=== PATIENT | female | born 1970 ===

== ENCOUNTER 2016-09-12 21:41 | Inpatient (IN) | payer MEDICAID, OTHER ==
[2016-09-12] MEDS ORDERED: Sodium Chloride 0.9% 1,000 ML IV ONE ×2 (22:03→23:08)
--- NOTE | 2016-09-12 22:11 | C.PDOC ---
History Of Present Illness 46 y/o female with PMHx of gastritis presents to ED with c/o epigastric abdominal pain associated with vomiting and inability to tolerate PO. Patient reports feeling chills but denies any fevers. Patient notes she has been on medications for DM, HTN and gastritis in the past but has not been on any recently due to insurance issues. Patient describes pain as burning, which worsens when trying to eat, which causes her to vomit. Otherwise, denies fever, diarrhea, urinary symptoms, or other complaints. Time Seen by Provider: 09/12/16 22:00 Chief Complaint (Nursing): Abdominal Pain History Per: Patient History/Exam Limitations: no limitations Onset/Duration Of Symptoms: Days Current Symptoms Are (Timing): Still Present Location Of Pain/Discomfort: Epigastric Quality Of Discomfort: Burning, "Pain" Associated Symptoms: Chills, Vomiting. denies: Fever, Diarrhea, Back Pain, Urinary Symptoms Past Medical History Reviewed: Historical Data, Nursing Documentation, Vital Signs Vital Signs: Last Vital Signs Temp 99.3 F 09/12/16 21:43 Pulse 144 H 09/12/16 21:43 Resp 20 09/12/16 21:43 BP 139/83 09/12/16 21:43 Pulse Ox 96 09/12/16 23:12 - Medical History PMH: Anxiety, Gastritis, HTN, Hypercholesterolemia - [facility] GROUP PSYCHOTHERAPY (05/26/15) MEDICATION MANAGEMENT (05/26/15) Family History: States: Unknown Family Hx - Social History Hx Alcohol Use: No Hx Substance Use: Yes - Immunization History Hx Tetanus Toxoid Vaccination: No Hx Influenza Vaccination: No Hx Pneumococcal Vaccination: No Review Of Systems Except As Marked, All Systems Reviewed And Found Negative. Constitutional: Positive for: Chills. Negative for: Fever Cardiovascular: Negative for: Chest Pain Respiratory: Negative for: Cough, Wheezing Gastrointestinal: Positive for: Vomiting, Abdominal Pain. Negative for: Diarrhea Musculoskeletal: Negative for: Back Pain Skin: Negative for: Rash Physical Exam - Physical Exam Appears: Non-toxic, No Acute Distress Skin: Warm, Dry Head: Atraumatic, Normacephalic Oral Mucosa: Dry Chest: Symmetrical Cardiovascular: Rhythm Regular (tachy) Respiratory: Normal Breath Sounds, No Rales, No Rhonchi, No Wheezing Gastrointestinal/Abdominal: Bowel Sounds (quiet, but present), Soft, Tenderness (mild, epigastrium), No Guarding, No Rebound Back: Normal Inspection Extremity: Normal ROM, Capillary Refill (< 2 sec. ) Neurological/Psych: Oriented x3, Normal Speech, Normal Cognition ED Course And Treatment - Laboratory Results Result Diagrams: 09/12/16 22:45 09/12/16 22:55 Lab Interpretation: Abnormal (Blood sugar 349, Normal WBC but 19% bands, CMP unremarkable) O2 Sat by Pulse Oximetry: 96 (RA) Pulse Ox Interpretation: Normal Progress Note: Treated with Pepcid, Zofran, Protonix, and IVFs. Labs ordered and reviewed. Patient feels better after 1 liter of saline. Insulin and additional fluids ordered. Reevaluation Time: 00:46 Reassessment Condition: Unchanged (Patient still nauseated and c/o abdominal pain. GI cocktail ordered.) Disposition - Disposition Disposition Time: 00:49 Condition: FAIR - Clinical Impression Clinical Impression: Abdominal pain, Nausea, Vomiting - Scribe Statement The provider has reviewed the documentation as recorded by the Laureibcaitlin Vasquez Provider Scribe Attestation: All medical record entries made by the Scribe were at my direction and personally dictated by me. I have reviewed the chart and agree that the record accurately reflects my personal performance of the history, physical exam, medical decision making, and the department course for this patient. I have also personally directed, reviewed, and agree with the discharge instructions and disposition. Physician Patient Turnover Patient Signed Over To: Hilario Goyal Handoff Comments: Pending further treatment for gastritis and hydration
[2016-09-12 22:40] LABS: BASO % 0.1 % (0.0-2.0); LYMPH # 0.6 K/uL (1.0-4.3); MEAN CELL VOLUME 85.2 fL (81.0-99.0); MEAN CORPUSCULAR HEMOGLOBIN 28.8 pg (27.0-31.0); MEAN CORPUSCULAR HGB CONC 33.8 g/dL (33.0-37.0); MEAN PLATELET VOLUME 8.3 fL (7.2-11.7); MONO # 0.8 K/uL (0.0-0.8); MONO % 8.7 % (0.0-10.0); PLATELET COUNT 259 K/uL (130-400); RED CELL DISTRIBUTION WIDTH 12.6 % (11.5-14.5); WHITE BLOOD COUNT 9.5 K/uL (4.8-10.8)
[2016-09-12 22:44] LABS: CHLORIDE 95 mmol/L (98-107)
[2016-09-12 22:45] LABS: POTASSIUM 3.8 mmol/L (3.6-5.2); SODIUM 133 mmol/L (132-148)
[2016-09-12 22:47] LABS: GFR AFRICAN-AMERICAN > 60
[2016-09-12 22:48] LABS: ALB/GLOB RATIO 1.1 (1.0-2.1); ALKALINE PHOSPHATASE 88 U/L (38-126); ALT/SGPT 32 U/L (9-52); AST/SGOT 30 U/L (14-36); BILIRUBIN,TOTAL 0.7 mg/dL (0.2-1.3); BLOOD UREA NITROGEN 11 mg/dL (7-17); CALCIUM 9.5 mg/dl (8.6-10.4); CARBON DIOXIDE 22 mmol/L (22-30); GLUCOSE,RANDOM 349 mg/dL (65-105); TOTAL PROTEIN 8.7 g/dL (6.3-8.3)
[2016-09-12] MEDS ORDERED: (Novolin R) Insulin Human Regular 100 units/ml vial IV ONE (23:08)
[2016-09-12 23:45] LABS: NEUTROPHIL 70 % (50-75); TOTAL CELLS COUNTED 100
[2016-09-12 23:46] LABS: LARGE PLATELETS PRESENT
[2016-09-13] MEDS ORDERED: (Novolin R) Insulin Human Regular 100 units/ml vial ONE ×3 (00:36→12:39)
[2016-09-13] MEDS ORDERED: Sodium Chloride 0.9% 1,000 ML IV ONE (00:49)
[2016-09-13] MEDS ORDERED: Belladonna-Phenobarbital PO STA (00:49)
[2016-09-13] MEDS ORDERED: Alum-Mag Hydrox-Simethicone Susp (30 mL) PO STA (00:50)
[2016-09-13] MEDS ORDERED: Aluminum Hydroxide/Magnesium Hydroxide Susp (30 mL) ONE (01:24)
[2016-09-13] MEDS ORDERED: Belladonna-Phenobarbital ONE (01:24)
[2016-09-13 02:38] LABS: RBC URINE 12 /hpf (0-3); URINE BACTERIA RARE (<OCC); URINE BILIRUBIN NEGATIVE (NEGATIVE); URINE BLOOD NEGATIVE (NEGATIVE); URINE COLOR Straw (YELLOW); URINE GLUCOSE (UA) 3+ mg/dL (Normal); URINE KETONE 1+ mg/dL (NEGATIVE); URINE LEUKOCYTE ESTERASE 3+ Leu/uL (Negative); URINE PROTEIN 2+ mg/dL (NEGATIVE); URINE UROBILINOGEN NORMAL mg/dL (0.2-1.0); WBC URINE 112 /hpf (0-5)
[2016-09-13] MEDS ORDERED: Morphine 4 MG/ML VIAL ONE (03:34)
[2016-09-13] MEDS ORDERED: metroNIDAZOLE IV 500 mg/100 ml 100 ML IVPB STA (04:29)
[2016-09-13] MEDS ORDERED: AMPicillin 1 GM in Sodium Chloride 0.9% 100 ML IVPB STA (04:30)
[2016-09-13] MEDS ORDERED: metroNIDAZOLE IV 500 mg/100 ml 100 ML ONE (04:48)
[2016-09-13 05:02] LABS: VENOUS BLOOD GAS BASE EXCESS -3.1 mmol/L (0.0-2.0); VENOUS BLOOD GAS PCO2 35 mmHg (40-60); VENOUS BLOOD PH 7.39 (7.32-7.43)
--- NOTE | 2016-09-13 05:31 | CP.PCM.HP ---
<Albaro SCHMIDTStehpanie Carreon - Last Filed: 09/13/16 08:43> History of Present Illness - History of Present Illness History of Present Illness: Patient is a 46 year old female with medical history of DM, HTN, frequent UTI, gastritis, hypothyroidism, depression and bipolar disorder who presents with complaint of abdominal pain that began Saturday. Patient states she was starting to feel unwell on Saturday with nasal congestion and had a headache which resolved with tylenol. Patient states she started vomiting on Saturday and could not tolerate any food or liquids. Patient states that she thinks she vomits 7-8 times per day. She states she tried to drink water but even that caused her to vomit. Patient states she feels a burning sensation in her stomach that is worse with movement. Patient admits to back pain that has been chronic, as well as frequent urinary infections with foul smelling urine, although she does not think she has one now. Patient also complains of increased thirst and urination. Patient admits to recent depressed feelings since she lost her insurance. PMHx: as above Meds: has not had any for at least 3 months since she lost her insurance PSHx: bilateral cataract removal FamHx: father with diabetes SocialHx: denies tobacco, alcohol, drugs; lives with mother; unemployed Present on Admission - Present on Admission Any Indicators Present on Admission: No Review of Systems - Constitutional Constitutional: Chills. absent: Fever - EENT Ears: absent: Dizziness Nose/Mouth/Throat: Nasal Congestion - Cardiovascular Cardiovascular: absent: Chest Pain - Respiratory Respiratory: absent: Cough, Dyspnea - Gastrointestinal Gastrointestinal: Abdominal Pain, Nausea, Vomiting - Genitourinary Genitourinary: absent: Difficulty Urinating, Dysuria - Musculoskeletal Musculoskeletal: Back Pain - Integumentary Integumentary: absent: Rash - Neurological Neurological: absent: Dizziness, Focal Weakness, Weakness - Endocrine Endocrine: Polydipsia, Polyuria Past Patient History - Infectious Disease Hx of Infectious Diseases: None - Past Social History Smoking Status: Never Smoked - CARDIAC Hx Hypercholesterolemia: Yes Hx Hypertension: Yes - ENDOCRINE/METABOLIC Hx Diabetes Mellitus Type 2: Yes - GASTROINTESTINAL Hx Gastritis: Yes - PSYCHIATRIC Hx Anxiety: Yes Hx Substance Use: Yes - SURGICAL HISTORY Other/Comment: right eye cataract surgery - ANESTHESIA Hx Anesthesia: Yes Hx Anesthesia Reactions: No Hx Malignant Hyperthermia: No Meds Allergies/Adverse Reactions: Allergies Allergy/AdvReac Type Severity Reaction Status Date / Time No Known Allergies Allergy Verified 03/18/15 10:49 Physical Exam - Constitutional Appears: Non-toxic, No Acute Distress - Head Exam Head Exam: ATRAUMATIC, NORMOCEPHALIC - Eye Exam Eye Exam: EOMI - ENT Exam ENT Exam: Mucous Membranes Dry Additional comments: missing several bottom teeth- denture missing - Respiratory Exam Respiratory Exam: Clear to Auscultation Bilateral - Cardiovascular Exam Cardiovascular Exam: Tachycardia, +S1, +S2 - GI/Abdominal Exam GI & Abdominal Exam: Normal Bowel Sounds, Soft, Tenderness (epigastric). absent : Distended, Firm, Guarding - Exam Additional comments: suprapubic tenderness - Back Exam Back exam: absent: CVA tenderness (L), CVA tenderness (R) Additional comments: lumbar spine tenderness - Neurological Exam Neurological exam: Alert, Oriented x3 - Psychiatric Exam Psychiatric exam: Normal Affect - Skin Skin Exam: Dry, Normal Color, Warm Results - Vital Signs Recent Vital Signs: Last Vital Signs Temp 99 F 09/13/16 03:40 Pulse 118 H 09/13/16 03:40 Resp 16 09/13/16 03:40 BP 140/76 09/13/16 03:40 Pulse Ox 98 09/13/16 05:28 - Labs Result Diagrams: 09/12/16 22:45 09/12/16 22:55 Labs: Laboratory Results - last 24 hr 09/12/16 09/12/16 09/13/16 22:45 22:55 00:37 WBC 9.5 RBC 4.58 Hgb 13.2 Hct 39.0 MCV 85.2 MCH 28.8 MCHC 33.8 RDW 12.6 Plt Count 259 MPV 8.3 Neut % (Auto) 85.2 H Lymph % (Auto) 6.0 L Kerr % (Auto) 8.7 Eos % (Auto) 0.0 Baso % (Auto) 0.1 Neut # 8.1 H Lymph # 0.6 L Kerr # 0.8 Eos # 0.0 Baso # 0.0 Neutrophils % (Manual) 70 Band Neutrophils % 19 H* Lymphocytes % (Manual) 3 L Monocytes % (Manual) 8 Platelet Estimate Normal Large Platelets Present Microcytosis (manual) Slight pO2 VBG pH VBG pCO2 VBG HCO3 VBG Total CO2 VBG O2 Sat (Calc) VBG Base Excess VBG Potassium Glucose Lactate Sodium 133 Potassium 3.8 Chloride 95 L Carbon Dioxide 22 Anion Gap 20 BUN 11 Creatinine 0.8 Est GFR ( Amer) > 60 Est GFR (Non-Af Amer) > 60 POC Glucose (mg/dL) 255 H Random Glucose 349 H Calcium 9.5 Total Bilirubin 0.7 AST 30 ALT 32 Alkaline Phosphatase 88 Total Protein 8.7 H Albumin 4.5 Globulin 4.3 H Albumin/Globulin Ratio 1.1 Lipase 38 Venous Blood Potassium Urine Color Urine Clarity Urine pH Ur Specific [place] Urine Protein Urine Glucose (UA) Urine Ketones Urine Blood Urine Nitrate Urine Bilirubin Urine Urobilinogen Ur Leukocyte Esterase Urine WBC (Auto) Urine RBC (Auto) Urine Bacteria Urine HCG, Qual 09/13/16 09/13/16 02:23 04:55 WBC RBC Hgb Hct MCV MCH MCHC RDW Plt Count MPV Neut % (Auto) Lymph % (Auto) Kerr % (Auto) Eos % (Auto) Baso % (Auto) Neut # Lymph # Kerr # Eos # Baso # Neutrophils % (Manual) Band Neutrophils % Lymphocytes % (Manual) Monocytes % (Manual) Platelet Estimate Large Platelets Microcytosis (manual) pO2 30 VBG pH 7.39 VBG pCO2 35 L VBG HCO3 21.4 VBG Total CO2 22.3 VBG O2 Sat (Calc) 62.2 VBG Base Excess -3.1 L VBG Potassium 3.7 Glucose 297 H Lactate 1.7 Sodium 138.0 Potassium Chloride 110.0 H Carbon Dioxide Anion Gap BUN Creatinine Est GFR ( Amer) Est GFR (Non-Af Amer) POC Glucose (mg/dL) Random Glucose Calcium Total Bilirubin AST ALT Alkaline Phosphatase Total Protein Albumin Globulin Albumin/Globulin Ratio Lipase Venous Blood Potassium 3.7 Urine Color Straw Urine Clarity Hazy Urine pH 6.0 Ur Specific [place] 1.016 Urine Protein 2+ H Urine Glucose (UA) 3+ H Urine Ketones 1+ H Urine Blood Negative Urine Nitrate Negative Urine Bilirubin Negative Urine Urobilinogen Normal Ur Leukocyte Esterase 3+ H Urine WBC (Auto) 112 H Urine RBC (Auto) 12 H Urine Bacteria Rare Urine HCG, Qual Negative Assessment & Plan - Assessment and Plan (Free Text) Assessment: Abdominal Pain with Vomiting Other Rad Studies (CT/US): Read By Radiologist, Radiology Report Reviewed CT/US Interpretation: Emphysematous pyelonephritis of left kidney patient with history of recurrent UTI will start on flagyl and zosyn urology consult placed for Dr. Cruz, tahmina appreciated will check renal US follow up urine and blood culture zofran prn nausea morphine prn pain normal saline at 150cc/h Hx of Diabetes will check a1c accuchecks achs with insulin sliding scale Hx of hypothyroidism will check thyroid studies Hx HLD will check lipid panel Hx HTN normotensive currently will continue to monitor PPx SCDs protonix 40mg <Judson Nguyễn P - Last Filed: 09/16/16 20:27> Results - Vital Signs Recent Vital Signs: Last Vital Signs Temp 98.1 F 09/16/16 15:00 Pulse 91 H 09/16/16 16:45 Resp 20 09/16/16 15:00 BP 150/84 09/16/16 15:00 Pulse Ox 97 09/16/16 15:00 - Labs Result Diagrams: 09/16/16 07:59 09/16/16 07:59 Labs: Laboratory Results - last 24 hr 09/15/16 09/15/16 09/15/16 20:49 22:46 Unknown WBC RBC Hgb Hct MCV MCH MCHC RDW Plt Count MPV Neut % (Auto) Lymph % (Auto) Kerr % (Auto) Eos % (Auto) Baso % (Auto) Neut # Lymph # Kerr # Eos # Baso # Sodium Potassium Chloride Carbon Dioxide Anion Gap BUN Creatinine Est GFR ( Amer) Est GFR (Non-Af Amer) POC Glucose (mg/dL) 132 H Random Glucose Calcium Magnesium Total Bilirubin AST ALT Alkaline Phosphatase Total Protein Albumin Globulin Albumin/Globulin Ratio Stool Occult Blood Negative C. difficile Ag & Toxin Negative 09/16/16 09/16/16 09/16/16 07:23 07:59 11:31 WBC 4.6 L RBC 3.80 Hgb 10.9 L Hct 32.4 L MCV 85.5 MCH 28.7 MCHC 33.5 RDW 12.8 Plt Count 276 MPV 8.6 Neut % (Auto) 57.0 Lymph % (Auto) 28.3 Kerr % (Auto) 13.4 H Eos % (Auto) 1.0 Baso % (Auto) 0.3 Neut # 2.6 Lymph # 1.3 Kerr # 0.6 Eos # 0.0 Baso # 0.0 Sodium 140 Potassium 3.4 L Chloride 104 Carbon Dioxide 24 Anion Gap 15 BUN 4 L Creatinine 0.6 L Est GFR ( Amer) > 60 Est GFR (Non-Af Amer) > 60 POC Glucose (mg/dL) 145 H 133 H Random Glucose 159 H Calcium 8.3 L Magnesium 1.9 Total Bilirubin 0.3 AST 52 H D ALT 40 Alkaline Phosphatase 90 Total Protein 7.3 Albumin 3.6 Globulin 3.6 Albumin/Globulin Ratio 1.0 Stool Occult Blood C. difficile Ag & Toxin 09/16/16 09/16/16 16:37 17:24 WBC RBC Hgb Hct MCV MCH MCHC RDW Plt Count MPV Neut % (Auto) Lymph % (Auto) Kerr % (Auto) Eos % (Auto) Baso % (Auto) Neut # Lymph # Kerr # Eos # Baso # Sodium Potassium Chloride Carbon Dioxide Anion Gap BUN Creatinine Est GFR ( Amer) Est GFR (Non-Af Amer) POC Glucose (mg/dL) 216 H Random Glucose Calcium Magnesium Total Bilirubin AST ALT Alkaline Phosphatase Total Protein Albumin Globulin Albumin/Globulin Ratio Stool Occult Blood Negative C. difficile Ag & Toxin Attending/Attestation - Attestation I have personally seen and examined this patient.: Yes I have fully participated in the care of the patient.: Yes I have reviewed all pertinent clinical information: Yes
[2016-09-13] MEDS ORDERED: Sodium Chloride 0.9% 1,000 ML IV SCH (07:15)
--- NOTE | 2016-09-13 08:06 | CT ---
PROCEDURE: CT Abdomen and Pelvis with contrast HISTORY: Abdominal pain. Vomiting. Bandemia. COMPARISON: CT abdomen and pelvis with contrast performed 03/11/15 TECHNIQUE: Contrast dose: 100 mL Visipaque Radiation dose: Total exam DLP = 250.73 mGy-cm. This CT exam was performed using one or more of the following dose reduction techniques: Automated exposure control, adjustment of the mA and/or kV according to patient size, and/or use of iterative reconstruction technique. FINDINGS: LOWER THORAX: No visible consolidation, pleural effusion, or pneumothorax. LIVER: Hepatomegaly. Diffuse hypoattenuation of the liver compatible with hepatic steatosis. GALLBLADDER AND BILE DUCTS: Unremarkable. PANCREAS: Unremarkable. SPLEEN: Unremarkable. ADRENALS: Unremarkable. KIDNEYS AND URETERS: Air is seen within the left renal collecting system most prominent within the renal hilum but also noted within the left ureter and the urinary bladder. Perinephric stranding. Correlate clinically for recent instrumentation or urinary retrograde study. These findings may be seen in the setting of emphysematous pyelonephritis. The right kidney appears grossly unremarkable. VASCULATURE: No aortic aneurysm. BOWEL: The stomach is nondistended. Lack of oral contrast limits evaluation for bowel pathology. No evidence of bowel obstruction. APPENDIX: The appendix appears within normal limits of caliber. No secondary signs acute appendicitis. PERITONEUM: Small pelvic free fluid. No definite free air. LYMPH NODES: No bulky adenopathy identified. BLADDER: See above. REPRODUCTIVE: The uterus is present. Prominent pelvic vessels particularly within the left at adnexa; correlate for pelvic congestion syndrome. BONES: No acute osseous abnormality is detected. OTHER FINDINGS: None. IMPRESSION: Air is seen within the left renal collecting system most prominent within the renal hilum but also noted within the left ureter and the urinary bladder. Perinephric stranding. Correlate clinically for recent instrumentation or urinary retrograde study. These findings may be seen in the setting of emphysematous pyelonephritis. Hepatomegaly. Hepatic steatosis. Prominent pelvic vessels particularly within the left adnexa; correlate for pelvic congestion syndrome. Small pelvic free fluid. Preliminary impression was provided by virtual radiologic. Critical findings were discussed between Dr. Lewis and Dr. Goyal prior to the time of preliminary dictation on 09/13/16 at 4:23 a.m..
[2016-09-13] MEDS ORDERED: Sodium Chloride 0.9% 1,000 ML ONE (08:09)
[2016-09-13] MEDS: (Novolin R) Insulin Human Regular 100 units/ml vial SC SCH ×4 (09:06→21:22)
--- NOTE | 2016-09-13 09:24 | US ---
Renal ultrasound History: Emphysematous pyelonephritis. Comparison: CT scan dated 09/13/2016 Technique: Real-time sonography was performed through the kidneys. Findings: Right kidney: 11.8 x 5.1 x 4.9 centimeters. No calculi or hydronephrosis. Left Kidney: Enlarged measuring 13.6 x 6.9 x 6.4 centimeters. Fullness of the left renal collecting system. In correlation with the CT scan, there appears to be air noted within the renal collecting system. Perinephric fat stranding. Correlation with recent instrumentation or urinary retrograde study is recommended. Alternatively, these findings may be seen in the setting of emphysematous pyelonephritis. Clinical correlation. Visualized aorta preserved. Air seen within the urinary bladder on recent CT scan is not as well appreciated on this ultrasound study. Urinary bladder is otherwise preserved. Impression: 1. Left Kidney: Enlarged measuring 13.6 x 6.9 x 6.4 centimeters. Fullness of the left renal collecting system. In correlation with the CT scan, there appears to be air noted within the renal collecting system. Perinephric fat stranding. Correlation with recent instrumentation or urinary retrograde study is recommended. Alternatively, these findings may be seen in the setting of emphysematous pyelonephritis. Clinical correlation. 2. Air seen within the urinary bladder on recent CT scan is not as well appreciated on this ultrasound study. Urinary bladder is otherwise preserved.
[2016-09-13] MEDS: Piperacill/Tazo 3.375gm in Dex 50 ML IVPB SCH ×3 (09:35→21:20)
[2016-09-13 09:40] LABS: CHOLESTEROL 168 mg/dL (0-199)
[2016-09-13 10:13] LABS: THYROID STIMULATING HORMONE 1.08 mIU/L (0.46-4.68)
[2016-09-13 10:21] LABS: BASO % 0.3 % (0.0-2.0); EOS % 0.1 % (0.0-4.0); HEMATOCRIT 36.4 % (34.0-47.0); LYMPH # 0.8 K/uL (1.0-4.3); MEAN CELL VOLUME 86.1 fL (81.0-99.0); MEAN CORPUSCULAR HEMOGLOBIN 28.7 pg (27.0-31.0); MEAN CORPUSCULAR HGB CONC 33.3 g/dL (33.0-37.0); MEAN PLATELET VOLUME 8.4 fL (7.2-11.7); MONO # 1.1 K/uL (0.0-0.8); MONO % 13.2 % (0.0-10.0); PLATELET COUNT 223 K/uL (130-400); RED CELL DISTRIBUTION WIDTH 12.9 % (11.5-14.5); WHITE BLOOD COUNT 8.4 K/uL (4.8-10.8)
[2016-09-13 10:27] LABS: CHLORIDE 101 mmol/L (98-107)
[2016-09-13 10:28] LABS: POTASSIUM 3.5 mmol/L (3.6-5.2); SODIUM 138 mmol/L (132-148)
[2016-09-13 10:30] LABS: ALB/GLOB RATIO 1.1 (1.0-2.1); ALKALINE PHOSPHATASE 79 U/L (38-126); ALT/SGPT 24 U/L (9-52); AST/SGOT 34 U/L (14-36); BILIRUBIN,TOTAL 0.8 mg/dL (0.2-1.3); BLOOD UREA NITROGEN 10 mg/dL (7-17); CARBON DIOXIDE 20 mmol/L (22-30); GFR AFRICAN-AMERICAN > 60; GLUCOSE,RANDOM 265 mg/dL (65-105); TOTAL PROTEIN 8.2 g/dL (6.3-8.3)
[2016-09-13 10:31] LABS: CALCIUM 8.5 mg/dl (8.6-10.4); MAGNESIUM 1.7 mg/dL (1.6-2.3)
[2016-09-13 10:51] LABS: NEUTROPHIL 65 % (50-75); TOTAL CELLS COUNTED 100
[2016-09-13] MEDS: metroNIDAZOLE IV 500 mg/100 ml 100 ML IVPB SCH ×2 (15:45→21:19)
--- NOTE | 2016-09-13 16:40 | CP.PCM.PN ---
<Rose Mary Kulkarni - Last Filed: 09/13/16 16:49> Subjective - Date & Time of Evaluation Date of Evaluation: 09/13/16 Time of Evaluation: 16:35 - Subjective Subjective: Patient seen and examined at bedside. Patient sitting upright due to mid- abdominal pain which is exacerbated when supine. She notes left flank pain. Patient admits to nausea but states Zofran provided her relief. She admits to fever but denies chills. Patient denies dysuria or hematuria but describes urine as cloudy and foul smelling. She is not able to tolerate diet but states she will try liquid diet later today. She denies diarrhea and constipation. Objective - Vital Signs/Intake and Output Vital Signs (last 24 hours): Temp Pulse Resp BP Pulse Ox 99.9 F H 89 17 129/83 99 09/13/16 14:40 09/13/16 14:40 09/13/16 14:40 09/13/16 14:40 09/13/16 14:40 - Medications Medications: Current Medications Acetaminophen (Tylenol 325mg Tab) 650 mg PO Q6 PRN PRN Reason: Fever >100.4 F Last Admin: 09/13/16 10:38 Dose: 650 mg Metronidazole (Flagyl) 100 mls @ 100 mls/hr IVPB Q8 [facility] Last Admin: 09/13/16 15:45 Dose: 100 mls/hr Piperacillin Sod/Tazobactam Sod (Zosyn 3.375 Gm Iv Premix) 50 mls @ 100 mls/hr IVPB Q6H [facility] Last Admin: 09/13/16 14:43 Dose: 100 mls/hr Sodium Chloride (Sodium Chloride 0.9%) 1,000 mls @ 125 mls/hr IV .Q8H [facility] Insulin Human Regular (Novolin R) 0 unit SC ACHS BARRY PRN Reason: Protocol Last Admin: 09/13/16 12:39 Dose: 4 unit Morphine Sulfate (Morphine) 2 mg IVP Q4 PRN PRN Reason: Pain, moderate (4-7) Ondansetron HCl (Zofran Inj) 4 mg IVP Q6H PRN PRN Reason: Nausea/Vomiting Last Admin: 09/13/16 15:42 Dose: 4 mg Pantoprazole Sodium (Protonix Inj) 40 mg IVP DAILY [facility] - Labs Labs: 09/13/16 10:22 09/13/16 09:27 - Constitutional Appears: Non-toxic, No Acute Distress - Head Exam Head Exam: ATRAUMATIC, NORMAL INSPECTION, NORMOCEPHALIC - Eye Exam Eye Exam: EOMI, Normal appearance, PERRL - ENT Exam ENT Exam: Mucous Membranes Moist - Neck Exam Neck Exam: Full ROM, Normal Inspection - Respiratory Exam Respiratory Exam: Clear to Ausculation Bilateral, NORMAL BREATHING PATTERN. absent: Rales, Rhonchi, Wheezes - Cardiovascular Exam Cardiovascular Exam: Tachycardia, +S1, +S2 - GI/Abdominal Exam GI & Abdominal Exam: Soft, Tenderness, Normal Bowel Sounds - Extremities Exam Extremities Exam: Normal Inspection. absent: Pedal Edema, Tenderness - Back Exam Back Exam: CVA tenderness (L). absent: rash noted - Neurological Exam Neurological Exam: Alert, Awake, Oriented x3 - Psychiatric Exam Psychiatric exam: Normal Affect, Normal Mood - Skin Skin Exam: Intact, Normal Color, Warm Assessment and Plan - Assessment and Plan (Free Text) Assessment: Emphysematous Pyelonephritis of Left Kidney Febrile 102.6F WBC 8.4 Bands decreased to 15 from 19 Abdomen/Pelvis CT with contrast: Air is seen within left renal collecting system most prominent within the renal hilum but also noted within the left ureter and the urinary bladder. Perinephric stranding. Correlate clinically for recent instrumentation or urinary retrograde study. Emphysematous pyelonephritis. Hepatomegaly. Hepatic steatosis. Prominent pelvic vessels particularly within left adnexa. Small pelvic free fluid. Renal Ultrasound: Left kidney enlarged 13.6 x 6.9 x 6.4 cm. Fullness of left renal collecting system. In correlation with CT scan, appears to be air noted within renal collecting system. Perinephric fat stranding. Air seen within the urinary bladder on recent CT scan is not as well appreciated on this US study. Infectious disease, Dr. Smith, consulted. Help appreciated. Continue on Metronidazole IVPB Q8H and Zosyn 3.375 gm IVPB Q6H Received Ampicillin 1 gm IVPB, Gentamicin Sulfate 80 mg IVPB, and Flagyl IVPB STAT in ED Urology consult placed for Dr. Cruz, help appreciated. Follow-up recommendations. Urinalysis: straw color, hazy, protein 2+, glucose 3+, ketones 1+, Leukocyte Esterase 3+, WBC 112, RBC 12 Continue Zofran 4 mg IVP Q6H prn nausea Continue Morphine 2 mg IVP Q6H prn for pain Tylenol 650 mg po Q6H PRN for fever Normal Saline IV @125cc Start Full Liquid Diet, Advance if tolerates Uncontrolled Diabetes Mellitus Type II Hemoglobin A1c 12.8 Accuchecks ACHS with insulin sliding scale Hx of Hypothyroidism TSH 1.08 Free T4 0.85 Hx HLD Lipid Panel: triglycerides 230, cholesterol 168, LDL 84, HDL 27 Start Lovaza 1 gm po BID sgl and Crestor 2.5 mg po HS Hx HTN Normotensive will continue to monitor PPx SCDs Protonix 40mg IVP daily <Florentino Gonzalez - Last Filed: 10/17/16 14:57> Objective - Vital Signs/Intake and Output Vital Signs (last 24 hours): Temp Pulse Resp BP Pulse Ox 97.7 F 74 20 159/83 H 97 09/17/16 08:20 09/17/16 08:20 09/17/16 08:20 09/17/16 08:20 09/17/16 08:20 - Labs Labs: 09/17/16 08:08 09/17/16 08:08 Attending/Attestation - Attestation I have personally seen and examined this patient.: Yes I have fully participated in the care of the patient.: Yes I have reviewed all pertinent clinical information, including history, physical exam and plan: Yes Notes (Text): Patient seen and examined with the resident. Agree with the resident's evaluation, assessment and plan. Emphysematous Pyelonephritis of Left Kidney Febrile 102.6F WBC 8.4 Bands decreased to 15 from 19
[2016-09-13] MEDS: Sodium Chloride 0.9% 1,000 ML IV SCH (17:00)
[2016-09-13 17:35] VITALS: RESP 20
[2016-09-13] MEDS: Omega-3-Acid Ethyl Esters 1 GM Cap PO SCH (18:07)
--- NOTE | 2016-09-13 19:43 | CP.PCM.CON ---
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 Patient states she started vomiting on Saturday and could not tolerate any food or liquids. . Patient admits to back pain that has been chronic, as well as frequent urinary infections with foul smelling urine, complains of increased thirst and urination. Patient admits to recent depressed feelings since she lost her insurance. PMHx: DM, HTN, frequent UTI, gastritis, hypothyroidism, depression and bipolar disorder who Meds: has not had any for at least 3 months since she lost her insurance PSHx: bilateral cataract removal FamHx: father with diabetes SocialHx: denies tobacco, alcohol, drugs; lives with mother; unemployed Review of Systems - Constitutional Constitutional: As Per HPI, Fever, Malaise - EENT Eyes: absent: As Per HPI, Blind Spots, Blurred Vision, Change in Vision, Decreased Night Vision, Diplopia, Discharge, Dry Eye, Exophthalmos, Floaters, Irritation, Itchy Eyes, Loss of Peripheral Vision, Pain, Photophobia, Requires Corrective Lenses, Sees Flashes, Spots in Vision, Tunnel Vision, Other Visual Disturbances, Loss of Vision, Other Ears: absent: As Per HPI, Decreased Hearing, Ear Discharge, Ear Pain, Tinnitus, Abnormal Hearing, Disequilibrium, Dizziness, Other Nose/Mouth/Throat: absent: As Per HPI, Epistaxis, Nasal Congestion, Nasal Discharge, Nasal Obstruction, Nasal Trauma, Nose Pain, Post Nasal Drip, Sinus Pain, Sinus Pressure, Bleeding Gums, Change in Voice, Dental Pain, Dry Mouth, Dysphagia, Halitosis, Hoarsness, Lip Swelling, Mouth Lesions, Mouth Pain, Odynophagia, Sore Throat, Throat Swelling, Tongue Swelling, Facial Pain, Neck Pain, Neck Mass, Other - Breasts Breasts: absent: As Per HPI, Change in Shape, Mass, Pain, Nipple Discharge, Nipple Inversion, Skin Changes, Swelling, Other - Cardiovascular Cardiovascular: absent: As Per HPI, Acrocyanosis, Chest Pain, Chest Pain at Rest , Chest Pain with Activity, Claudication, Diaphoresis, Dyspnea, Dyspnea on Exertion, Edema, Irregular Heart Rhythm, Pain Radiating to Arm/Neck/Jaw, Leg Edema, Leg Ulcers, Lightheadedness, Orthopnea, Palpitations, Paroxysmal Nocturnal Dyspnea, Pedal Edema, Radiating Pain, Rapid Heart Rate, Slow Heart Rate, Syncope, Other - Respiratory Respiratory: absent: As Per HPI, Cough, Dyspnea, Hemoptysis, Dyspnea on Exertion , Wheezing, Snoring, Stridor, Pain on Inspiration, Chest Congestion, Excessive Mucous Production, Change in Mucous Color, Pain with Coughing, Other - Gastrointestinal Gastrointestinal: As Per HPI - Genitourinary Genitourinary: As Per HPI - Reproductive: Female Reproductive:Female: absent: As Per HPI, Amenorrhea, Amenorrhea/ Control, Currently Menstual, Cycle <21 Days, Cycle >35 Days, Cycle Variable, Menses 1-7 Days, Menses >/= 8 Days, Menses Variable, Cycle > 4 Weeks Between, No Menses for 6 Months, Heavy Menses, Light Menses, Normal Menses, Spotting Between Cycles , S/P Hysterectomy, Menopausal, Post Menopausal, Premenarche, Abnormal Vaginal Bleeding, Dysmenorrhea, Dyspareunia, Genital Lesions, Genital Pruritis, Pelvic Pain, Prolapse Symptoms, Sexual Dysfunction, Vaginal Discharge, Vaginal Dryness , Vaginal Odor, Vaginal Pruritis, Other Past Patient History - Infectious Disease Hx of Infectious Diseases: None - Past Social History Smoking Status: Never Smoked - CARDIAC Hx Hypercholesterolemia: Yes Hx Hypertension: Yes - ENDOCRINE/METABOLIC Hx Diabetes Mellitus Type 2: Yes - MUSCULOSKELETAL/RHEUMATOLOGICAL Hx Falls: No - GASTROINTESTINAL Hx Gastritis: Yes - PSYCHIATRIC Hx Anxiety: Yes Hx Substance Use: Yes - SURGICAL HISTORY Other/Comment: right eye cataract surgery - ANESTHESIA Hx Anesthesia: Yes Hx Anesthesia Reactions: No Hx Malignant Hyperthermia: No Meds Allergies/Adverse Reactions: Allergies Allergy/AdvReac Type Severity Reaction Status Date / Time No Known Allergies Allergy Verified 03/18/15 10:49 - Medications Medications: Current Medications Acetaminophen (Tylenol 325mg Tab) 650 mg PO Q6 PRN PRN Reason: Fever >100.4 F Last Admin: 09/13/16 10:38 Dose: 650 mg Metronidazole (Flagyl) 100 mls @ 100 mls/hr IVPB Q8 [facility] Last Admin: 09/13/16 15:45 Dose: 100 mls/hr Piperacillin Sod/Tazobactam Sod (Zosyn 3.375 Gm Iv Premix) 50 mls @ 100 mls/hr IVPB Q6H [facility] Last Admin: 09/13/16 14:43 Dose: 100 mls/hr Sodium Chloride (Sodium Chloride 0.9%) 1,000 mls @ 125 mls/hr IV .Q8H [facility] Last Admin: 09/13/16 17:00 Dose: 125 mls/hr Insulin Human Regular (Novolin R) 0 unit SC ACHS [facility] PRN Reason: Protocol Last Admin: 09/13/16 16:30 Dose: 2 unit Morphine Sulfate (Morphine) 2 mg IVP Q4 PRN PRN Reason: Pain, moderate (4-7) Last Admin: 09/13/16 18:13 Dose: 2 mg Btjxa-0-Ajix Ethyl Esters (Lovaza) 1 gm PO BID [facility] Last Admin: 09/13/16 18:07 Dose: 1 gm Ondansetron HCl (Zofran Inj) 4 mg IVP Q6H PRN PRN Reason: Nausea/Vomiting Last Admin: 09/13/16 15:42 Dose: 4 mg Pantoprazole Sodium (Protonix Inj) 40 mg IVP DAILY [facility] Pneumococcal Polyvalent Vaccine (Pneumovax 23 Vaccine) 0.5 ml IM .ONCE ONE Stop: 09/14/16 10:01 Rosuvastatin Calcium (Crestor) 2.5 mg PO HS [facility] Physical Exam - Constitutional Appears: Non-toxic, Chronically Ill - Head Exam Head Exam: NORMOCEPHALIC - Eye Exam Eye Exam: PERRL. absent: Scleral icterus - ENT Exam ENT Exam: Mucous Membranes Dry, Normal External Ear Exam - Respiratory Exam Respiratory Exam: Clear to Auscultation Bilateral - Cardiovascular Exam Cardiovascular Exam: REGULAR RHYTHM - GI/Abdominal Exam GI & Abdominal Exam: Diminished Bowel Sounds, Soft. absent: Tenderness - Exam Exam: NORMAL INSPECTION - Extremities Exam Extremities exam: Negative for: calf tenderness, pedal edema - Back Exam Back exam: CVA tenderness (L), CVA tenderness (R) - Neurological Exam Neurological exam: Alert, CN II-XII Intact, Oriented x3, Reflexes Normal - Psychiatric Exam Psychiatric exam: Normal Mood - Skin Skin Exam: Dry Results - Vital Signs Recent Vital Signs: Last Vital Signs Temp 100.0 F H 09/13/16 17:00 Pulse 99 H 09/13/16 17:00 Resp 20 0420/17 17:00 BP 135/79 09/13/16 17:00 Pulse Ox 97 09/13/16 17:00 - Labs Result Diagrams: 09/13/16 10:22 09/13/16 09:27 Labs: Laboratory Results - last 24 hr 09/13/16 09/13/16 09/13/16 07:46 09:27 10:22 WBC 8.4 RBC 4.22 Hgb 12.1 Hct 36.4 MCV 86.1 MCH 28.7 MCHC 33.3 RDW 12.9 Plt Count 223 MPV 8.4 Neut % (Auto) 77.4 H Lymph % (Auto) 9.0 L [place] % (Auto) 13.2 H Eos % (Auto) 0.1 Baso % (Auto) 0.3 Neut # 6.5 Lymph # 0.8 L [place] # 1.1 H Eos # 0.0 Baso # 0.0 Neutrophils % (Manual) 65 Band Neutrophils % 15 H* Lymphocytes % (Manual) 8 L Monocytes % (Manual) 12 H Platelet Estimate Normal RBC Morphology Normal Sodium 138 Potassium 3.5 L Chloride 101 Carbon Dioxide 20 L Anion Gap 21 H BUN 10 Creatinine 0.8 Est GFR ( Amer) > 60 Est GFR (Non-Af Amer) > 60 POC Glucose (mg/dL) 247 H Random Glucose 265 H Hemoglobin A1c 12.8 H D Calcium 8.5 L Magnesium 1.7 Total Bilirubin 0.8 AST 34 ALT 24 Alkaline Phosphatase 79 Total Protein 8.2 Albumin 4.2 Globulin 4.0 H Albumin/Globulin Ratio 1.1 Triglycerides 230 H Cholesterol 168 LDL Cholesterol Direct 84 HDL Cholesterol 27 L Free T4 0.85 TSH 3rd Generation 1.08 09/13/16 09/13/16 11:34 17:05 WBC RBC Hgb Hct MCV MCH MCHC RDW Plt Count MPV Neut % (Auto) Lymph % (Auto) [place] % (Auto) Eos % (Auto) Baso % (Auto) Neut # Lymph # [place] # Eos # Baso # Neutrophils % (Manual) Band Neutrophils % Lymphocytes % (Manual) Monocytes % (Manual) Platelet Estimate RBC Morphology Sodium Potassium Chloride Carbon Dioxide Anion Gap BUN Creatinine Est GFR ( Amer) Est GFR (Non-Af Amer) POC Glucose (mg/dL) 305 H 227 H Random Glucose Hemoglobin A1c Calcium Magnesium Total Bilirubin AST ALT Alkaline Phosphatase Total Protein Albumin Globulin Albumin/Globulin Ratio Triglycerides Cholesterol LDL Cholesterol Direct HDL Cholesterol Free T4 TSH 3rd Generation Assessment & Plan (1) Emphysematous pyelonephritis of left kidney Status: Acute (2) Nausea Status: Acute (3) Uncontrolled diabetes mellitus Status: Acute (4) Vomiting Status: Acute (5) Abdominal discomfort Status: Acute (6) Anxiety Status: Acute (7) Depression Status: Acute - Assessment and Plan (Free Text) Assessment: await cultures cont iv rx
--- NOTE | 2016-09-13 20:07 | CON ---
DATE: 09/13/2016 TIME: Roughly at 6:53 p.m. REASON FOR CONSULTATION: Left emphysematous pyelonephritis. BRIEF HISTORY: The patient is a 46-year-old female from [place] who presents to [facility] Emergency Room with a 2-day history of diffuse mid-abdominal pain associated with nausea, vo miting, fever, and chills. She voids with her usual normal stream. She denies dysuria or gross ally turia. Abdominal pelvic CT done in the Emergency Room on 09/13/2016 showed definite pyelonephritis, and poss ible emphysematous pyelonephritis. Air was seen within the left renal collecting system, most promin ent within the left renal hilum, but also noted within the left ureter and the urinary bladder. Ther e was also some perinephric stranding. No renal stones, masses, or hydronephrosis was mentioned with the study. The patient also had a renal ultrasound done on the same day, again, for evaluation of e mphysematous pyelonephritis, and the right kidney was normal with no calculi or hydronephrosis. Ther e was fullness of the left renal collecting system. In correlation with the CT scan there appeared t o be air within the renal collecting system. Perinephric fat stranding, and correlation with recent instrumentation or urinary retrograde study was recommended, or alternatively, the findings could be consistent with emphysematous pyelonephritis. The patient also gives a history of being treated for an intestinal infection several years ago with IV antibiotics. Her medical history includes diabetes mellitus, hypertension, thyroid disease, and h yperlipidemia. Her only prior surgical history was cataract surgery. GYNECOLOGIC HISTORY: She is 0, para 0. She has no history of any alcohol or tobacco use. No known allergies to any medications. PHYSICAL EXAMINATION: Today, the patient is a well-developed, well-nourished female. She is alert, oriented. HEENT EXAMINATION: Grossly within normal limits. NECK: Supple. Thyroid not palpable. ABDOMEN: Soft, slightly distended and tender. However, there is minimal CVA tenderness, and no supr apubic tenderness. VITAL SIGNS: On admission, her temperature was 102.6. Her temperature now is 100.0, and this was ta lisa at 5 p.m. Her pulse rate is 99, blood pressure is 135/79, respiratory rate is 20, and O2 sat on room air is 97%. LABORATORY EVALUATION: On 09/12/2016 her CBC showed a WBC count of 9.5, hemoglobin of 13.2, and ally tocrit of 39.0. Platelet count was 259,000. Her CBC today, 09/13/2016, shows a WBC count of 8.4, he moglobin of 12.1, and hematocrit 36.4, with a platelet count of 223,000. A chem profile today, 09/13, shows a sodium of 138, potassium 3.5, chloride 101, CO2 of 20, BUN and creatinine 0.8 respecti vely, with a GFR of greater than 60. Random glucose was 265. Hemoglobin A1c was 12.8, calcium 8.5. Magnesium 1.7, total bilirubin was 0.8, AST was 34, ALT was 24. Triglyceride level was 230, total c holesterol level was 168, LDL was 84, HDL was 27. TSH was 0.85. Urinalysis on 09/13/2016 showed col or was straw-colored, clarity was hazy, specific gravity was 1.016, protein was 2+, glucose was 3+, k etones were 1+. Urine blood, nitrite, bilirubin were all negative, and urobilinogen was normal. Chaparrita kocyte esterase was 3+. There were 112 WBCs, 12 RBCs, rare bacteria per power field, and the urine h CG was negative. Currently, no culture reports are available at this time. The patient is currently on IV ampicillin, metronidazole, gentamicin, and Zosyn. DIAGNOSTIC IMPRESSION AT THIS TIME: Left emphysematous pyelonephritis. PLAN: To continue treatment with IV antibiotics at this time. Rocky Cruz MD cc: [phone] TT: 09/13/2016 20:07:06 Confirmation # [id number] Dictation # [id number] becky
[2016-09-13] MEDS: Rosuvastatin Calcium 2.5 mg Tab PO SCH (21:23)
[2016-09-14] MEDS: Piperacill/Tazo 3.375gm in Dex 50 ML IVPB SCH ×4 (01:28→20:13)
[2016-09-14] MEDS: Sodium Chloride 0.9% 1,000 ML IV SCH ×3 (01:28→17:18)
[2016-09-14] MEDS: metroNIDAZOLE IV 500 mg/100 ml 100 ML IVPB SCH ×3 (06:24→21:36)
[2016-09-14 07:29] LABS: BASO % 0.2 % (0.0-2.0); HEMATOCRIT 33.6 % (34.0-47.0); LYMPH # 0.7 K/uL (1.0-4.3); MEAN CELL VOLUME 85.7 fL (81.0-99.0); MEAN CORPUSCULAR HEMOGLOBIN 28.2 pg (27.0-31.0); MEAN CORPUSCULAR HGB CONC 32.9 g/dL (33.0-37.0); MEAN PLATELET VOLUME 8.3 fL (7.2-11.7); MONO # 0.9 K/uL (0.0-0.8); MONO % 12.2 % (0.0-10.0); WHITE BLOOD COUNT 7.2 K/uL (4.8-10.8)
--- NOTE | 2016-09-14 07:47 | CP.PCM.PN ---
<Rose Mary Kulkarni - Last Filed: 09/14/16 15:40> Subjective - Date & Time of Evaluation Date of Evaluation: 09/14/16 Time of Evaluation: 07:45 - Subjective Subjective: Patient seen and examined at bedside. Patient states she feels improved but continues to febrile and now complaining of headache and cervical neck pain. She states she has epigastric abdominal pain but flank pain has subsided and is well controlled with Morphine. She notes urine to still be foul-smelling and describes the sound of air at end of micturition. She denies chest pain, palpitations and shortness of breath. Objective - Vital Signs/Intake and Output Vital Signs (last 24 hours): Temp Pulse Resp BP Pulse Ox 101.6 F H 76 20 115/66 97 09/14/16 06:29 09/14/16 01:39 09/14/16 00:00 09/14/16 00:00 09/14/16 00:00 Intake and Output: 09/14/16 09/14/16 06:59 18:59 Intake Total 990 1500 Balance 990 1500 - Medications Medications: Current Medications Acetaminophen (Tylenol 325mg Tab) 650 mg PO Q6 PRN PRN Reason: Fever >100.4 F Last Admin: 09/14/16 06:29 Dose: 650 mg Metronidazole (Flagyl) 100 mls @ 100 mls/hr IVPB Q8 [facility] Last Admin: 09/14/16 06:24 Dose: 100 mls/hr Piperacillin Sod/Tazobactam Sod (Zosyn 3.375 Gm Iv Premix) 50 mls @ 100 mls/hr IVPB Q6H [facility] Last Admin: 09/14/16 01:28 Dose: 100 mls/hr Sodium Chloride (Sodium Chloride 0.9%) 1,000 mls @ 125 mls/hr IV .Q8H [facility] Last Admin: 09/14/16 01:28 Dose: 125 mls/hr Insulin Human Regular (Novolin R) 0 unit SC ACHS [facility] PRN Reason: Protocol Last Admin: 09/13/16 21:22 Dose: Not Given Morphine Sulfate (Morphine) 2 mg IVP Q4 PRN PRN Reason: Pain, moderate (4-7) Last Admin: 09/13/16 18:13 Dose: 2 mg Jdmjw-7-Brqd Ethyl Esters (Lovaza) 1 gm PO BID [facility] Last Admin: 09/13/16 18:07 Dose: 1 gm Ondansetron HCl (Zofran Inj) 4 mg IVP Q6H PRN PRN Reason: Nausea/Vomiting Last Admin: 09/14/16 04:41 Dose: 4 mg Pantoprazole Sodium (Protonix Inj) 40 mg IVP DAILY [facility] Pneumococcal Polyvalent Vaccine (Pneumovax 23 Vaccine) 0.5 ml IM .ONCE ONE Stop: 09/14/16 10:01 Rosuvastatin Calcium (Crestor) 2.5 mg PO HS [facility] Last Admin: 09/13/16 21:23 Dose: 2.5 mg - Labs Labs: 09/14/16 07:13 09/13/16 09:27 - Constitutional Appears: Non-toxic, No Acute Distress - Head Exam Head Exam: ATRAUMATIC, NORMAL INSPECTION, NORMOCEPHALIC - Eye Exam Eye Exam: EOMI, Normal appearance, PERRL - ENT Exam ENT Exam: Mucous Membranes Moist - Neck Exam Additional comments: negative Kernig's and Brudzinksi's sign - Respiratory Exam Respiratory Exam: Clear to Ausculation Bilateral, NORMAL BREATHING PATTERN. absent: Rales, Rhonchi, Wheezes - Cardiovascular Exam Cardiovascular Exam: +S1, +S2. absent: Tachycardia - GI/Abdominal Exam GI & Abdominal Exam: Soft, Tenderness, Normal Bowel Sounds - Extremities Exam Extremities Exam: Normal Inspection. absent: Pedal Edema, Tenderness - Back Exam Back Exam: CVA tenderness (L) - Neurological Exam Neurological Exam: Alert, Awake, Oriented x3 - Psychiatric Exam Psychiatric exam: Normal Affect, Normal Mood - Skin Skin Exam: Intact, Normal Color, Warm Assessment and Plan - Assessment and Plan (Free Text) Assessment: Emphysematous Pyelonephritis of Left Kidney 09/14: Febrile 101.6F, WBC 7.2 09/13: Bands decreased to 15 from 19 Infectious disease, Dr. Smith, consulted. Help appreciated. Continue currently management. Awaiting culture - gram negative kandy. Continue on Metronidazole IVPB Q8H and Zosyn 3.375 gm IVPB Q6H Received Ampicillin 1 gm IVPB, Gentamicin Sulfate 80 mg IVPB, and Flagyl IVPB STAT in ED Urology consult placed for Dr. Cruz, help appreciated. Follow-up recommendations. Urinalysis: straw color, hazy, protein 2+, glucose 3+, ketones 1+, Leukocyte Esterase 3+, WBC 112, RBC 12 Continue Zofran 4 mg IVP Q6H prn nausea Continue Morphine 2 mg IVP Q6H prn for pain Tylenol 650 mg po Q6H PRN for fever Normal Saline IV @125cc Start Full Liquid Diet, Advance if tolerates Abdomen/Pelvis CT with contrast: Air is seen within left renal collecting system most prominent within the renal hilum but also noted within the left ureter and the urinary bladder. Perinephric stranding. Correlate clinically for recent instrumentation or urinary retrograde study. Emphysematous pyelonephritis. Hepatomegaly. Hepatic steatosis. Prominent pelvic vessels particularly within left adnexa. Small pelvic free fluid. Renal Ultrasound: Left kidney enlarged 13.6 x 6.9 x 6.4 cm. Fullness of left renal collecting system. In correlation with CT scan, appears to be air noted within renal collecting system. Perinephric fat stranding. Air seen within the urinary bladder on recent CT scan is not as well appreciated on this US study. Uncontrolled Diabetes Mellitus Type II Blood sugar 253 Hemoglobin A1c 12.8 Start Novolog 5 units SC TIDAC and Lantus 17 U SC HS Accuchecks ACHS Hx of Hypothyroidism TSH 1.08 Free T4 0.85 Hx HLD Lipid Panel: triglycerides 230, cholesterol 168, LDL 84, HDL 27 Continue Lovaza 1 gm po BID sgl and Crestor 2.5 mg po HS Hx HTN Normotensive will continue to monitor PPx SCDs Protonix 40mg IVP daily <Chivo Murphy M - Last Filed: 09/15/16 12:46> Objective - Vital Signs/Intake and Output Vital Signs (last 24 hours): Temp Pulse Resp BP Pulse Ox 98.7 F 78 20 144/87 98 09/15/16 08:00 09/15/16 08:00 09/15/16 08:00 09/15/16 08:00 09/15/16 08:00 Intake and Output: 09/15/16 09/15/16 06:59 18:59 Intake Total 2800 Output Total 1000 Balance 1800 - Medications Medications: Current Medications Acetaminophen (Tylenol 325mg Tab) 650 mg PO Q6 PRN PRN Reason: Fever >100.4 F Last Admin: 09/14/16 11:12 Dose: 650 mg Acetaminophen/Butalbital/Caffeine (Fioricet) 1 tab PO Q4 PRN PRN Reason: Migraine headache Last Admin: 09/15/16 12:28 Dose: 1 tab Enoxaparin Sodium (Lovenox) 40 mg SC DAILY [facility] Last Admin: 09/15/16 10:29 Dose: 40 mg Metronidazole (Flagyl) 100 mls @ 100 mls/hr IVPB Q8 [facility] Last Admin: 09/15/16 05:23 Dose: 100 mls/hr Piperacillin Sod/Tazobactam Sod (Zosyn 3.375 Gm Iv Premix) 50 mls @ 100 mls/hr IVPB Q6H [facility] Last Admin: 09/15/16 07:25 Dose: 100 mls/hr Sodium Chloride (Sodium Chloride 0.9%) 1,000 mls @ 125 mls/hr IV .Q8H [facility] Last Admin: 09/15/16 08:35 Dose: Not Given Insulin Aspart (Novolog) 5 unit SC TIDAC [facility] Last Admin: 09/15/16 12:34 Dose: 5 unit Insulin Glargine (Lantus) [address] [facility] Last Admin: 09/14/16 21:28 Dose: 17 unit Insulin Human Regular (Novolin R) 0 unit SC ACHS [facility] PRN Reason: Protocol Morphine Sulfate (Morphine) 2 mg IVP Q4 PRN PRN Reason: Pain, moderate (4-7) Last Admin: 09/13/16 18:13 Dose: 2 mg Tfbpg-7-Qmwt Ethyl Esters (Lovaza) 1 gm PO BID [facility] Last Admin: 09/15/16 10:29 Dose: 1 gm Ondansetron HCl (Zofran Inj) 4 mg IVP Q6H PRN PRN Reason: Nausea/Vomiting Last Admin: 09/14/16 04:41 Dose: 4 mg Pantoprazole Sodium (Protonix Inj) 40 mg IVP DAILY [facility] Last Admin: 09/15/16 10:30 Dose: 40 mg Potassium Chloride (K-Dur 20 Meq Er Tab) 40 meq PO Q4 [facility] Stop: 09/15/16 16:01 Last Admin: 09/15/16 12:29 Dose: 40 meq Rosuvastatin Calcium (Crestor) 2.[address] [facility] Last Admin: 09/14/16 21:28 Dose: 2.5 mg Saccharomyces Boulardii (Florastor) 250 mg PO BID [facility] Last Admin: 09/15/16 10:32 Dose: 250 mg Trazodone HCl (Desyrel) 25 mg PO HS PRN PRN Reason: Insomnia - Labs Labs: 09/15/16 07:45 09/15/16 07:45 Attending/Attestation - Attestation I have personally seen and examined this patient.: Yes I have fully participated in the care of the patient.: Yes I have reviewed all pertinent clinical information, including history, physical exam and plan: Yes Notes (Text): 09/15/16 12:44 patient was seen and examined at bedside with the resident States that she still has foamy and foul-smelling urine we will continue IV antibiotics for emphysematous pyelonephritis. Patient is on Zosyn and Flagyl. Continue insulin therapy for uncontrolled of diabetes mellitus. Blood sugar is better controlled. I discussed the plan of care with the resident and agree with the above history and physical and assessment/plan.
[2016-09-14 08:27] LABS: POTASSIUM 3.4 mmol/L (3.6-5.2); SODIUM 136 mmol/L (132-148)
[2016-09-14] MEDS: (Novolin R) Insulin Human Regular 100 units/ml vial SC SCH ×2 (08:28→12:07)
[2016-09-14 08:29] LABS: ALB/GLOB RATIO 0.9 (1.0-2.1); ALKALINE PHOSPHATASE 92 U/L (38-126); ALT/SGPT 42 U/L (9-52); AST/SGOT 58 U/L (14-36); BLOOD UREA NITROGEN 11 mg/dL (7-17); CARBON DIOXIDE 19 mmol/L (22-30); GFR AFRICAN-AMERICAN > 60; TOTAL PROTEIN 7.5 g/dL (6.3-8.3)
[2016-09-14 08:30] LABS: CALCIUM 7.7 mg/dl (8.6-10.4); GLUCOSE,RANDOM 173 mg/dL (65-105); MAGNESIUM 1.8 mg/dL (1.6-2.3)
[2016-09-14 08:36] LABS: CHLORIDE 102 mmol/L (98-107)
[2016-09-14] MEDS ORDERED: Potassium Chloride 20 mEq ER Tab PO STA (09:09)
[2016-09-14] MEDS: Enoxaparin 40 mg Syringe SC SCH (09:32)
[2016-09-14] MEDS: Omega-3-Acid Ethyl Esters 1 GM Cap PO SCH ×2 (09:32→17:35)
[2016-09-14] MEDS ORDERED: Pneumococcal 23-Valent Vaccine IM ONE (10:00)
[2016-09-14] MEDS: Apap-Butalbital-Caffeine 325-50-40mg Tab PO PRN ×2 (17:10→21:36)
[2016-09-14] MEDS: (Novolog) Insulin Aspart, Recombinant 100 u/ml 10 ml vial SC SCH (17:13)
--- NOTE | 2016-09-14 18:16 | CP.PCM.PN ---
Subjective - Date & Time of Evaluation Date of Evaluation: 09/14/16 Time of Evaluation: 09:00 - Subjective Subjective: still with fever and flank pain'has large burden of bacteria and will need exterminator helper termite rx await cultures Objective - Vital Signs/Intake and Output Vital Signs (last 24 hours): Temp Pulse Resp BP Pulse Ox 99 F 87 20 152/84 H 98 09/14/16 16:00 09/14/16 16:00 09/14/16 16:00 09/14/16 16:00 09/14/16 16:00 Intake and Output: 09/14/16 09/14/16 06:59 18:59 Intake Total 990 1500 Balance 990 1500 - Medications Medications: Current Medications Acetaminophen (Tylenol 325mg Tab) 650 mg PO Q6 PRN PRN Reason: Fever >100.4 F Last Admin: 09/14/16 11:12 Dose: 650 mg Acetaminophen/Butalbital/Caffeine (Fioricet) 1 tab PO Q4 PRN PRN Reason: Migraine headache Last Admin: 09/14/16 17:10 Dose: 1 tab Enoxaparin Sodium (Lovenox) 40 mg SC DAILY [facility] Last Admin: 09/14/16 09:32 Dose: 40 mg Metronidazole (Flagyl) 100 mls @ 100 mls/hr IVPB Q8 [facility] Last Admin: 09/14/16 13:21 Dose: 100 mls/hr Piperacillin Sod/Tazobactam Sod (Zosyn 3.375 Gm Iv Premix) 50 mls @ 100 mls/hr IVPB Q6H [facility] Last Admin: 09/14/16 13:19 Dose: 100 mls/hr Sodium Chloride (Sodium Chloride 0.9%) 1,000 mls @ 125 mls/hr IV .Q8H [facility] Last Admin: 09/14/16 17:18 Dose: 125 mls/hr Insulin Aspart (Novolog) 5 unit SC TIDAC [facility] Last Admin: 09/14/16 17:13 Dose: 5 unit Insulin Glargine (Lantus) 17 unit SC HS [facility] Morphine Sulfate (Morphine) 2 mg IVP Q4 PRN PRN Reason: Pain, moderate (4-7) Last Admin: 09/13/16 18:13 Dose: 2 mg Obtdw-9-Nnwt Ethyl Esters (Lovaza) 1 gm PO BID [facility] Last Admin: 09/14/16 17:35 Dose: 1 gm Ondansetron HCl (Zofran Inj) 4 mg IVP Q6H PRN PRN Reason: Nausea/Vomiting Last Admin: 09/14/16 04:41 Dose: 4 mg Pantoprazole Sodium (Protonix Inj) 40 mg IVP DAILY [facility] Last Admin: 09/14/16 09:45 Dose: 40 mg Rosuvastatin Calcium (Crestor) 2.5 mg PO HS [facility] Last Admin: 09/13/16 21:23 Dose: 2.5 mg - Labs Labs: 09/14/16 07:13 09/14/16 07:13 - Constitutional Appears: Non-toxic, Chronically Ill - Head Exam Head Exam: NORMOCEPHALIC - Eye Exam Eye Exam: absent: Scleral icterus - ENT Exam ENT Exam: Mucous Membranes Dry - Neck Exam Neck Exam: absent: Lymphadenopathy - Respiratory Exam Respiratory Exam: Decreased Breath Sounds - Cardiovascular Exam Cardiovascular Exam: REGULAR RHYTHM - GI/Abdominal Exam GI & Abdominal Exam: Distended, Soft - Rectal Exam Rectal Exam: Deferred - Exam Exam: NORMAL INSPECTION - Back Exam Back Exam: CVA tenderness (L), CVA tenderness (R) - Neurological Exam Neurological Exam: Alert, Awake, Oriented x3 Assessment and Plan (1) Emphysematous pyelonephritis of left kidney Status: Acute (2) Nausea Status: Acute (3) Uncontrolled diabetes mellitus Status: Acute (4) Vomiting Status: Acute (5) Abdominal discomfort Status: Acute (6) Anxiety Status: Acute (7) Depression Status: Acute - Assessment and Plan (Free Text) Assessment: cont iv rx as ordered
[2016-09-14] MEDS: (Lantus) Insulin Glargine, Recombinant SC SCH (21:28)
[2016-09-14] MEDS: Rosuvastatin Calcium 2.5 mg Tab PO SCH (21:28)
[2016-09-15] MEDS: Sodium Chloride 0.9% 1,000 ML IV SCH ×4 (01:21→16:35)
[2016-09-15] MEDS: Piperacill/Tazo 3.375gm in Dex 50 ML IVPB SCH ×4 (01:21→19:50)
[2016-09-15] MEDS: Apap-Butalbital-Caffeine 325-50-40mg Tab PO PRN ×2 (05:23→12:28)
[2016-09-15] MEDS: metroNIDAZOLE IV 500 mg/100 ml 100 ML IVPB SCH ×3 (05:23→21:40)
[2016-09-15] MEDS: (Novolog) Insulin Aspart, Recombinant 100 u/ml 10 ml vial SC SCH ×3 (07:32→16:45)
[2016-09-15 07:58] LABS: BASO % 0.2 % (0.0-2.0); EOS % 0.4 % (0.0-4.0); HEMATOCRIT 30.7 % (34.0-47.0); LYMPH % 20.1 % (20.0-40.0); MEAN CELL VOLUME 85.3 fL (81.0-99.0); MEAN CORPUSCULAR HEMOGLOBIN 28.6 pg (27.0-31.0); MEAN CORPUSCULAR HGB CONC 33.6 g/dL (33.0-37.0); MEAN PLATELET VOLUME 8.4 fL (7.2-11.7); MONO # 0.7 K/uL (0.0-0.8); MONO % 13.8 % (0.0-10.0); RED CELL DISTRIBUTION WIDTH 12.6 % (11.5-14.5); WHITE BLOOD COUNT 4.9 K/uL (4.8-10.8)
[2016-09-15 08:16] LABS: CHLORIDE 103 mmol/L (98-107); POTASSIUM 3.1 mmol/L (3.6-5.2); SODIUM 137 mmol/L (132-148)
[2016-09-15 08:18] LABS: BILIRUBIN,TOTAL 0.2 mg/dL (0.2-1.3); GFR AFRICAN-AMERICAN > 60
[2016-09-15 08:19] LABS: ALKALINE PHOSPHATASE 73 U/L (38-126); ALT/SGPT 31 U/L (9-52); AST/SGOT 32 U/L (14-36); BLOOD UREA NITROGEN 6 mg/dL (7-17); CARBON DIOXIDE 24 mmol/L (22-30); GLUCOSE,RANDOM 200 mg/dL (65-105); TOTAL PROTEIN 6.8 g/dL (6.3-8.3)
[2016-09-15] MEDS: Enoxaparin 40 mg Syringe SC SCH (10:29)
[2016-09-15] MEDS: Omega-3-Acid Ethyl Esters 1 GM Cap PO SCH ×2 (10:29→18:09)
[2016-09-15] MEDS: Saccharomyces Boulardi 250 mg Cap PO SCH ×2 (10:32→18:09)
--- NOTE | 2016-09-15 11:22 | CP.PCM.PN ---
<SantosZander H - Last Filed: 09/15/16 13:52> Subjective - Date & Time of Evaluation Date of Evaluation: 09/15/16 Time of Evaluation: 10:00 - Subjective Subjective: Dr. Acosta service: Patient seen and examined in room. She is complaining of 4-5 recent episode of brown diarrhea over night. She says was having some diffuse abdominal pain and fever before admission. She complains of chronic headache and also some insomnia since admission. Objective - Vital Signs/Intake and Output Vital Signs (last 24 hours): Temp Pulse Resp BP Pulse Ox 98.7 F 78 20 144/87 98 09/15/16 08:00 09/15/16 08:00 09/15/16 08:00 09/15/16 08:00 09/15/16 08:00 Intake and Output: 09/15/16 09/15/16 06:59 18:59 Intake Total 2800 Output Total 1000 Balance 1800 - Medications Medications: Current Medications Acetaminophen (Tylenol 325mg Tab) 650 mg PO Q6 PRN PRN Reason: Fever >100.4 F Last Admin: 09/14/16 11:12 Dose: 650 mg Acetaminophen/Butalbital/Caffeine (Fioricet) 1 tab PO Q4 PRN PRN Reason: Migraine headache Last Admin: 09/15/16 05:23 Dose: 1 tab Enoxaparin Sodium (Lovenox) 40 mg SC DAILY [facility] Last Admin: 09/15/16 10:29 Dose: 40 mg Metronidazole (Flagyl) 100 mls @ 100 mls/hr IVPB Q8 [facility] Last Admin: 09/15/16 05:23 Dose: 100 mls/hr Piperacillin Sod/Tazobactam Sod (Zosyn 3.375 Gm Iv Premix) 50 mls @ 100 mls/hr IVPB Q6H [facility] Last Admin: 09/15/16 07:25 Dose: 100 mls/hr Sodium Chloride (Sodium Chloride 0.9%) 1,000 mls @ 125 mls/hr IV .Q8H [facility] Last Admin: 09/15/16 08:35 Dose: Not Given Insulin Aspart (Novolog) 5 unit SC TIDAC [facility] Last Admin: 09/15/16 07:32 Dose: 5 unit Insulin Glargine (Lantus) 17 unit SC HS [facility] Last Admin: 09/14/16 21:28 Dose: 17 unit Morphine Sulfate (Morphine) 2 mg IVP Q4 PRN PRN Reason: Pain, moderate (4-7) Last Admin: 09/13/16 18:13 Dose: 2 mg Kzmym-5-Jbld Ethyl Esters (Lovaza) 1 gm PO BID [facility] Last Admin: 09/15/16 10:29 Dose: 1 gm Ondansetron HCl (Zofran Inj) 4 mg IVP Q6H PRN PRN Reason: Nausea/Vomiting Last Admin: 09/14/16 04:41 Dose: 4 mg Pantoprazole Sodium (Protonix Inj) 40 mg IVP DAILY [facility] Last Admin: 09/15/16 10:30 Dose: 40 mg Potassium Chloride (K-Dur 20 Meq Er Tab) 40 meq PO Q4 [facility] Stop: 09/15/16 16:01 Rosuvastatin Calcium (Crestor) 2.5 mg PO HS [facility] Last Admin: 09/14/16 21:28 Dose: 2.5 mg Saccharomyces Boulardii (Florastor) 250 mg PO BID [facility] Last Admin: 09/15/16 10:32 Dose: 250 mg - Labs Labs: 09/15/16 07:45 09/15/16 07:45 - Constitutional Appears: Non-toxic, No Acute Distress - Head Exam Head Exam: NORMAL INSPECTION - Eye Exam Eye Exam: Normal appearance Pupil Exam: NORMAL ACCOMODATION - ENT Exam ENT Exam: Normal Exam - Neck Exam Neck Exam: Normal Inspection - Respiratory Exam Respiratory Exam: Clear to Ausculation Bilateral. absent: Rales, Rhonchi, Wheezes - Cardiovascular Exam Cardiovascular Exam: REGULAR RHYTHM, RRR, +S1, +S2. absent: Gallop, Rubs - GI/Abdominal Exam GI & Abdominal Exam: Soft, Normal Bowel Sounds. absent: Distended, Guarding, Tenderness - Extremities Exam Extremities Exam: absent: Calf Tenderness, Pedal Edema - Back Exam Back Exam: NORMAL INSPECTION. absent: CVA tenderness (L), CVA tenderness (R) - Neurological Exam Neurological Exam: Alert, Awake - Psychiatric Exam Psychiatric exam: Normal Affect, Normal Mood - Skin Skin Exam: Normal Color. absent: Pallor Assessment and Plan - Assessment and Plan (Free Text) Assessment: 09/15: day 3 of IV Zosyn and flagyl, no white count this am or bands. She will day 7 more days of IV antibiotics, follow up Urology and ID consult 09/14: Febrile 101.6F, WBC 7.2 09/13: Bands decreased to 15 from 19 Infectious disease, Dr. Smith, consulted. Help appreciated. Continue currently management. Awaiting culture - gram negative kandy. Continue on Metronidazole IVPB Q8H and Zosyn 3.375 gm IVPB Q6H Received Ampicillin 1 gm IVPB, Gentamicin Sulfate 80 mg IVPB, and Flagyl IVPB STAT in ED Urology consult placed for Dr. Cruz, help appreciated. Follow-up recommendations. Urinalysis: straw color, hazy, protein 2+, glucose 3+, ketones 1+, Leukocyte Esterase 3+, WBC 112, RBC 12 Continue Zofran 4 mg IVP Q6H prn nausea Continue Morphine 2 mg IVP Q6H prn for pain Tylenol 650 mg po Q6H PRN for fever Normal Saline IV @125cc Start Full Liquid Diet, Advance if tolerates Abdomen/Pelvis CT with contrast: Air is seen within left renal collecting system most prominent within the renal hilum but also noted within the left ureter and the urinary bladder. Perinephric stranding. Correlate clinically for recent instrumentation or urinary retrograde study. Emphysematous pyelonephritis. Hepatomegaly. Hepatic steatosis. Prominent pelvic vessels particularly within left adnexa. Small pelvic free fluid. Renal Ultrasound: Left kidney enlarged 13.6 x 6.9 x 6.4 cm. Fullness of left renal collecting system. In correlation with CT scan, appears to be air noted within renal collecting system. Perinephric fat stranding. Air seen within the urinary bladder on recent CT scan is not as well appreciated on this US study. Diarrhea Follow up c diff and stool ob, on contact isolation for now Anemia: Hbg droped to 10.1, follow up stool ob, monitor her hbg. Uncontrolled Diabetes Mellitus Type II Blood sugar 253 Hemoglobin A1c 12.8 Start Novolog 5 units SC TIDAC and Lantus 17 U SC HS Accuchecks ACHS Hx of Hypothyroidism TSH 1.08 Free T4 0.85 Hx HLD Lipid Panel: triglycerides 230, cholesterol 168, LDL 84, HDL 27 Continue Lovaza 1 gm po BID sgl and Crestor 2.5 mg po HS Hx HTN Normotensive will continue to monitor PPx SCDs Protonix 40mg IVP daily <Gilda Zuniga V - Last Filed: 09/16/16 11:25> Subjective - Subjective Subjective: note attached in error; hospitalist Dr. acosta covering for 09/15/16 Objective - Vital Signs/Intake and Output Vital Signs (last 24 hours): Temp Pulse Resp BP Pulse Ox 98.5 F 91 H 20 132/81 95 09/16/16 08:15 09/16/16 08:15 09/16/16 08:15 09/16/16 08:15 09/16/16 08:15 Intake and Output: 09/16/16 09/16/16 06:59 18:59 Intake Total 4190 Balance 4190 - Medications Medications: Current Medications Acetaminophen/Butalbital/Caffeine (Fioricet) 1 tab PO Q4 PRN PRN Reason: Migraine headache Last Admin: 09/16/16 00:13 Dose: 1 tab Enoxaparin Sodium (Lovenox) 40 mg SC DAILY [facility] Last Admin: 09/16/16 09:23 Dose: 40 mg Metronidazole (Flagyl) 100 mls @ 100 mls/hr IVPB Q8 [facility] Last Admin: 09/16/16 06:06 Dose: 100 mls/hr Piperacillin Sod/Tazobactam Sod (Zosyn 3.375 Gm Iv Premix) 50 mls @ 100 mls/hr IVPB Q6H [facility] Last Admin: 09/16/16 07:55 Dose: 100 mls/hr Sodium Chloride (Sodium Chloride 0.9%) 1,000 mls @ 75 mls/hr IV .[id number] [facility] Insulin Aspart (Novolog) 5 unit SC TIDAC [facility] Last Admin: 09/16/16 07:54 Dose: 5 unit Insulin Glargine (Lantus) 17 unit SC HS [facility] Last Admin: 09/15/16 21:41 Dose: 17 unit Insulin Human Regular (Novolin R) 0 unit SC ACHS [facility] PRN Reason: Protocol Last Admin: 09/16/16 07:32 Dose: Not Given Morphine Sulfate (Morphine) 2 mg IVP Q4 PRN PRN Reason: Pain, moderate (4-7) Last Admin: 09/13/16 18:13 Dose: 2 mg Fviod-0-Ucna Ethyl Esters (Lovaza) 1 gm PO BID [facility] Last Admin: 09/16/16 09:23 Dose: 1 gm Ondansetron HCl (Zofran Inj) 4 mg IVP Q6H PRN PRN Reason: Nausea/Vomiting Last Admin: 09/14/16 04:41 Dose: 4 mg Pantoprazole Sodium (Protonix Inj) 40 mg IVP DAILY [facility] Last Admin: 09/16/16 09:24 Dose: 40 mg Rosuvastatin Calcium (Crestor) 2.5 mg PO HS [facility] Last Admin: 09/15/16 21:41 Dose: 2.5 mg Saccharomyces Boulardii (Florastor) 250 mg PO BID [facility] Last Admin: 09/16/16 09:23 Dose: 250 mg Trazodone HCl (Desyrel) 25 mg PO HS PRN PRN Reason: Insomnia - Labs Labs: 09/16/16 07:59 09/16/16 07:59 <Florentino Acosta - Last Filed: 10/17/16 15:10> Objective - Vital Signs/Intake and Output Vital Signs (last 24 hours): Temp Pulse Resp BP Pulse Ox 97.7 F 74 20 159/83 H 97 09/17/16 08:20 09/17/16 08:20 09/17/16 08:20 09/17/16 08:20 09/17/16 08:20 - Labs Labs: 09/17/16 08:08 09/17/16 08:08 Attending/Attestation - Attestation I have personally seen and examined this patient.: Yes I have fully participated in the care of the patient.: Yes I have reviewed all pertinent clinical information, including history, physical exam and plan: Yes Notes (Text): Patient seen and examined with the resident. Agree with the resident's evaluation, assessment and plan. Emphysematous pyelonephritis. New diarrhea
[2016-09-15] MEDS: Potassium Chloride 20 mEq ER Tab PO SCH ×2 (12:29→16:41)
[2016-09-15] MEDS: (Novolin R) Insulin Human Regular 100 units/ml vial SC SCH ×2 (16:45→21:58)
[2016-09-15] MEDS: (Lantus) Insulin Glargine, Recombinant SC SCH (21:41)
[2016-09-15] MEDS: Rosuvastatin Calcium 2.5 mg Tab PO SCH (21:41)
[2016-09-15] MEDS ORDERED: traZODone 25 mg Tab PO PRN (22:00)
[2016-09-16] MEDS: Apap-Butalbital-Caffeine 325-50-40mg Tab PO PRN ×2 (00:13→12:51)
[2016-09-16] MEDS: Piperacill/Tazo 3.375gm in Dex 50 ML IVPB SCH ×3 (00:32→12:51)
[2016-09-16] MEDS: Sodium Chloride 0.9% 1,000 ML IV SCH ×3 (03:00→11:42)
[2016-09-16] MEDS: metroNIDAZOLE IV 500 mg/100 ml 100 ML IVPB SCH ×3 (06:06→21:35)
[2016-09-16] MEDS: (Novolin R) Insulin Human Regular 100 units/ml vial SC SCH ×4 (07:32→21:52)
[2016-09-16] MEDS: (Novolog) Insulin Aspart, Recombinant 100 u/ml 10 ml vial SC SCH ×3 (07:54→16:30)
[2016-09-16 08:18] LABS: BASO % 0.3 % (0.0-2.0); HEMATOCRIT 32.4 % (34.0-47.0); LYMPH # 1.3 K/uL (1.0-4.3); LYMPH % 28.3 % (20.0-40.0); MEAN CELL VOLUME 85.5 fL (81.0-99.0); MEAN CORPUSCULAR HEMOGLOBIN 28.7 pg (27.0-31.0); MEAN CORPUSCULAR HGB CONC 33.5 g/dL (33.0-37.0); MEAN PLATELET VOLUME 8.6 fL (7.2-11.7); MONO # 0.6 K/uL (0.0-0.8); MONO % 13.4 % (0.0-10.0); RED CELL DISTRIBUTION WIDTH 12.8 % (11.5-14.5); WHITE BLOOD COUNT 4.6 K/uL (4.8-10.8)
[2016-09-16 08:23] LABS: CHLORIDE 104 mmol/L (98-107); POTASSIUM 3.4 mmol/L (3.6-5.2); SODIUM 140 mmol/L (132-148)
[2016-09-16 08:25] LABS: AST/SGOT 52 U/L (14-36); BILIRUBIN,TOTAL 0.3 mg/dL (0.2-1.3); CARBON DIOXIDE 24 mmol/L (22-30); GFR AFRICAN-AMERICAN > 60
[2016-09-16 08:26] LABS: ALKALINE PHOSPHATASE 90 U/L (38-126); ALT/SGPT 40 U/L (9-52); BLOOD UREA NITROGEN 4 mg/dL (7-17); CALCIUM 8.3 mg/dl (8.6-10.4); GLUCOSE,RANDOM 159 mg/dL (65-105); MAGNESIUM 1.9 mg/dL (1.6-2.3); TOTAL PROTEIN 7.3 g/dL (6.3-8.3)
[2016-09-16] MEDS: Saccharomyces Boulardi 250 mg Cap PO SCH ×2 (09:23→17:43)
[2016-09-16] MEDS: Omega-3-Acid Ethyl Esters 1 GM Cap PO SCH ×2 (09:23→17:43)
[2016-09-16] MEDS: Enoxaparin 40 mg Syringe SC SCH (09:23)
[2016-09-16] MEDS ORDERED: Potassium Chloride 20 mEq ER Tab PO ONE (10:03)
--- NOTE | 2016-09-16 11:20 | CP.PCM.PN ---
<Gilda Zuniga V - Last Filed: 09/16/16 11:26> Objective - Vital Signs/Intake and Output Vital Signs (last 24 hours): Temp Pulse Resp BP Pulse Ox 98.5 F 91 H 20 132/81 95 09/16/16 08:15 09/16/16 08:15 09/16/16 08:15 09/16/16 08:15 09/16/16 08:15 Intake and Output: 09/16/16 09/16/16 06:59 18:59 Intake Total 4190 Balance 4190 - Medications Medications: Current Medications Acetaminophen/Butalbital/Caffeine (Fioricet) 1 tab PO Q4 PRN PRN Reason: Migraine headache Last Admin: 09/16/16 00:13 Dose: 1 tab Enoxaparin Sodium (Lovenox) 40 mg SC DAILY [facility] Last Admin: 09/16/16 09:23 Dose: 40 mg Metronidazole (Flagyl) 100 mls @ 100 mls/hr IVPB Q8 [facility] Last Admin: 09/16/16 06:06 Dose: 100 mls/hr Piperacillin Sod/Tazobactam Sod (Zosyn 3.375 Gm Iv Premix) 50 mls @ 100 mls/hr IVPB Q6H [facility] Last Admin: 09/16/16 07:55 Dose: 100 mls/hr Sodium Chloride (Sodium Chloride 0.9%) 1,000 mls @ 75 mls/hr IV .[id number] [facility] Insulin Aspart (Novolog) 5 unit SC TIDAC [facility] Last Admin: 09/16/16 07:54 Dose: 5 unit Insulin Glargine (Lantus) 17 unit SC HS [facility] Last Admin: 09/15/16 21:41 Dose: 17 unit Insulin Human Regular (Novolin R) 0 unit SC ACHS [facility] PRN Reason: Protocol Last Admin: 09/16/16 07:32 Dose: Not Given Morphine Sulfate (Morphine) 2 mg IVP Q4 PRN PRN Reason: Pain, moderate (4-7) Last Admin: 09/13/16 18:13 Dose: 2 mg Inrts-8-Icxt Ethyl Esters (Lovaza) 1 gm PO BID [facility] Last Admin: 09/16/16 09:23 Dose: 1 gm Ondansetron HCl (Zofran Inj) 4 mg IVP Q6H PRN PRN Reason: Nausea/Vomiting Last Admin: 09/14/16 04:41 Dose: 4 mg Pantoprazole Sodium (Protonix Inj) 40 mg IVP DAILY [facility] Last Admin: 09/16/16 09:24 Dose: 40 mg Rosuvastatin Calcium (Crestor) 2.5 mg PO HS [facility] Last Admin: 09/15/16 21:41 Dose: 2.5 mg Saccharomyces Boulardii (Florastor) 250 mg PO BID [facility] Last Admin: 09/16/16 09:23 Dose: 250 mg Trazodone HCl (Desyrel) 25 mg PO HS PRN PRN Reason: Insomnia - Labs Labs: 09/16/16 07:59 09/16/16 07:59 Attending/Attestation - Attestation I have personally seen and examined this patient.: Yes I have fully participated in the care of the patient.: Yes I have reviewed all pertinent clinical information, including history, physical exam and plan: Yes Notes (Text): Patient seen, examined, and case discussed with day-time resident. Patient reports diarrhea improved to loose bowel movements about 3-4x/days. Patient reports LMP about month ago. Patient denies other acute complaints. Follow-up stool studies, hepatitis panel, and follow-up urine culture. Order placed for PT/OT eval and [facility] eval for IV abx coverage 1) Sepsis * Criteria: Febrile: 102.6F, tachycardia, bandemia; source: emphysematous pyelonephritis * In the ED, Received Ampicillin 1 gm IVPB, Gentamicin Sulfate 80 mg IVPB, and Flagyl IVPB STAT in ED * 09/13/16 CT Abdomen/Pelvis: air is seen within the left renal collecting most prominent within the renal hilum, left ureter and urinary bladder, perinephric stranding, hepatomegaly, hepatic steatosis * Urology (Dr. Cruz) on case-->help appreciated * Infectious disease (Dr. Smith) on case-->help appreciated * 09/13/16 Urine culture: proteus Mirabilis-->sensitive to everything except Macrobid * Blood cultures: No growth after 3 days X2 * Abx: Zosyn 3.375 gIV Q 6 hour (active since 09/13/16) and Flagyl 500mg IV Q8 hours (active since 09/13/16) * Florastor 250mg PO bid * Decreased IV fluids: NS 75 cc/hr * Zofran 4mg IV Q 6hour PRN nausea * Morphine 2mg IV Q 4hour PRN pain 2) Emphysematous pyelonephritis * 09/13/16 CT Abdomen/Pelvis: air is seen within the left renal collecting most prominent within the renal hilum, left ureter and urinary bladder, perinephric stranding, hepatomegaly, hepatic steatosis * Urology (Dr. Cruz) on case-->help appreciated * Infectious disease (Dr. Smith) on case-->help appreciated * 09/13/16 Urine culture: proteus Mirabilis-->sensitive to everything except Macrobid * Blood cultures: No growth after 3 days X2 * Abx: Zosyn 3.375 gIV Q 6 hour (active since 09/13/16) and Flagyl 500mg IV Q8 hours (active since 09/13/16) 3) Diabetes Mellitus Type II * Hemoglobin A1c 12.8 * Accuchecks ACHS with insulin sliding scale * Lantus 17 units subqHS * Novolog 5 units TIDAC * Regular insulin sliding scale subq * Crestor 2.5mg POqHS-->will need simvastatin due to affordability when patient is stable for discharge * Sugars: mid 100s 4) Hypothyroidism * TSH 1.08; Free T4 0.85 * off medication 5) Hyperlipidemia * Lipid Panel: triglycerides 230, cholesterol 168, LDL 84, HDL 27 * Lovaza 1 gm po BID sgl * Crestor 2.5mg PO qHS 6) Hypertension * monitor vital signs * Patient is currently on IV fluids * will need low dose sally-inhibitor or arb for renoprotection given diabetes hx 7) Hypokalemia * repleted 8) Diarrhea * C. Dif: negative; ordered for repeat today * Pending ova and parasite today * On probiotic * Reports loose stool today as opposed to water diarrhea * Abx: Zosyn 3.375 gIV Q 6 hour (active since 09/13/16) and Flagyl 500mg IV Q8 hours (active since 09/13/16) 9) History of Migraine * Controlled * Fioricet 1 tab PO Q 4hr PRN migraine 10) Hepatomegaly * 09/13/16 CT Abdomen/Pelvis: air is seen within the left renal collecting most prominent within the renal hilum, left ureter and urinary bladder, perinephric stranding, hepatomegaly, hepatic steatosis * monitor LFTs * Ordered hepatitis profile 11) PPx * SCDs * Protonix 40mg IVP daily for GI ppx * Lovenox 40mg subq Daily * PT/OT eval * [facility] eval for IV abx 12) Disposition * Will require IV abx for sepsis secondary to emphysematous pyleonephritis <Zander Graham H - Last Filed: 09/16/16 17:35> Subjective - Date & Time of Evaluation Date of Evaluation: 09/16/16 Time of Evaluation: 10:00 - Subjective Subjective: Dr. Zuniga service: Patient seen and examined in room. Patient reports she is having few episodes of loose stool than yesterday. She also says her stool is not watery anymore either. She denies abdominal pain, fever, chills, nausea, vomiting. She does admit to headaches for which fiorcet as helped. Objective - Vital Signs/Intake and Output Vital Signs (last 24 hours): Temp Pulse Resp BP Pulse Ox 98.5 F 91 H 20 132/81 95 09/16/16 08:15 09/16/16 08:15 09/16/16 08:15 09/16/16 08:15 09/16/16 08:15 Intake and Output: 09/16/16 09/16/16 06:59 18:59 Intake Total 4190 Balance 4190 - Medications Medications: Current Medications Acetaminophen/Butalbital/Caffeine (Fioricet) 1 tab PO Q4 PRN PRN Reason: Migraine headache Last Admin: 09/16/16 00:13 Dose: 1 tab Enoxaparin Sodium (Lovenox) 40 mg SC DAILY [facility] Last Admin: 09/16/16 09:23 Dose: 40 mg Metronidazole (Flagyl) 100 mls @ 100 mls/hr IVPB Q8 [facility] Last Admin: 09/16/16 06:06 Dose: 100 mls/hr Piperacillin Sod/Tazobactam Sod (Zosyn 3.375 Gm Iv Premix) 50 mls @ 100 mls/hr IVPB Q6H [facility] Last Admin: 09/16/16 07:55 Dose: 100 mls/hr Sodium Chloride (Sodium Chloride 0.9%) 1,000 mls @ 75 mls/hr IV .[id number] [facility] Insulin Aspart (Novolog) 5 unit SC TIDAC [facility] Last Admin: 09/16/16 07:54 Dose: 5 unit Insulin Glargine (Lantus) 17 unit SC HS [facility] Last Admin: 09/15/16 21:41 Dose: 17 unit Insulin Human Regular (Novolin R) 0 unit SC ACHS [facility] PRN Reason: Protocol Last Admin: 09/16/16 07:32 Dose: Not Given Morphine Sulfate (Morphine) 2 mg IVP Q4 PRN PRN Reason: Pain, moderate (4-7) Last Admin: 09/13/16 18:13 Dose: 2 mg Fnjeu-5-Vvad Ethyl Esters (Lovaza) 1 gm PO BID [facility] Last Admin: 09/16/16 09:23 Dose: 1 gm Ondansetron HCl (Zofran Inj) 4 mg IVP Q6H PRN PRN Reason: Nausea/Vomiting Last Admin: 09/14/16 04:41 Dose: 4 mg Pantoprazole Sodium (Protonix Inj) 40 mg IVP DAILY [facility] Last Admin: 09/16/16 09:24 Dose: 40 mg Rosuvastatin Calcium (Crestor) 2.5 mg PO HS [facility] Last Admin: 09/15/16 21:41 Dose: 2.5 mg Saccharomyces Boulardii (Florastor) 250 mg PO BID [facility] Last Admin: 09/16/16 09:23 Dose: 250 mg Trazodone HCl (Desyrel) 25 mg PO HS PRN PRN Reason: Insomnia - Labs Labs: 09/16/16 07:59 09/16/16 07:59 - Constitutional Appears: Non-toxic, No Acute Distress - Eye Exam Eye Exam: Normal appearance - Respiratory Exam Respiratory Exam: Clear to Ausculation Bilateral. absent: Rhonchi, Wheezes - Cardiovascular Exam Cardiovascular Exam: REGULAR RHYTHM, RRR, +S1, +S2. absent: Gallop, Rubs - GI/Abdominal Exam GI & Abdominal Exam: Soft, Normal Bowel Sounds. absent: Guarding, Tenderness - Neurological Exam Neurological Exam: Alert, Oriented x3 - Psychiatric Exam Psychiatric exam: Normal Affect, Normal Mood - Skin Skin Exam: Normal Color, Warm Assessment and Plan - Assessment and Plan (Free Text) Assessment: Assessment: 09/16: Day 4 of IV Zosyn and Flagyl, patient has been afebrile, Pt/ot ordered, case management also consulted for discharge planning. 09/15: day 3 of IV Zosyn and flagyl, no white count this am or bands. She will day 7 more days of IV antibiotics, follow up Urology and ID consult 09/14: Febrile 101.6F, WBC 7.2 09/13: Bands decreased to 15 from 19 Infectious disease, Dr. Smith, consulted. Help appreciated. Continue currently management. Awaiting culture - gram negative kandy. Continue on Metronidazole IVPB Q8H and Zosyn 3.375 gm IVPB Q6H Received Ampicillin 1 gm IVPB, Gentamicin Sulfate 80 mg IVPB, and Flagyl IVPB STAT in ED Urology consult placed for Dr. Cruz, help appreciated. Follow-up recommendations. Urinalysis: straw color, hazy, protein 2+, glucose 3+, ketones 1+, Leukocyte Esterase 3+, WBC 112, RBC 12 Continue Zofran 4 mg IVP Q6H prn nausea Continue Morphine 2 mg IVP Q6H prn for pain Tylenol 650 mg po Q6H PRN for fever Normal Saline IV @125cc Start Full Liquid Diet, Advance if tolerates Abdomen/Pelvis CT with contrast: Air is seen within left renal collecting system most prominent within the renal hilum but also noted within the left ureter and the urinary bladder. Perinephric stranding. Correlate clinically for recent instrumentation or urinary retrograde study. Emphysematous pyelonephritis. Hepatomegaly. Hepatic steatosis. Prominent pelvic vessels particularly within left adnexa. Small pelvic free fluid. Renal Ultrasound: Left kidney enlarged 13.6 x 6.9 x 6.4 cm. Fullness of left renal collecting system. In correlation with CT scan, appears to be air noted within renal collecting system. Perinephric fat stranding. Air seen within the urinary bladder on recent CT scan is not as well appreciated on this US study. Diarrhea 09/16: Stool studies pending, keep in contact isolation for now. replace electrolytes as needed. Follow up c diff and stool ob, on contact isolation for now Anemia: 09/16: Hbg increased to 10.7, stool ob is still pending. Hbg droped to 10.1, follow up stool ob, monitor her hbg. Uncontrolled Diabetes Mellitus Type II unontrolled. 09/16: Continue current insulin regimen, and accu checks Blood sugar 253 Hemoglobin A1c 12.8 Start Novolog 5 units SC TIDAC and Lantus 17 U SC HS Accuchecks ACHS Hx of Hypothyroidism TSH 1.08 Free T4 0.85 Hx HLD Lipid Panel: triglycerides 230, cholesterol 168, LDL 84, HDL 27 Continue Lovaza 1 gm po BID sgl and Crestor 2.5 mg po HS Hx HTN Normotensive will continue to monitor PPx SCDs Protonix 40mg IVP daily
--- NOTE | 2016-09-16 15:28 | CP.PCM.PN ---
Subjective - Date & Time of Evaluation Date of Evaluation: 09/16/16 Time of Evaluation: 08:00 - Subjective Subjective: no diarrhea cultures noted cont iv rx then po may need several weeks rx with gu follow up Objective - Vital Signs/Intake and Output Vital Signs (last 24 hours): Temp Pulse Resp BP Pulse Ox 98.5 F 91 H 20 132/81 95 09/16/16 08:15 09/16/16 08:15 09/16/16 08:15 09/16/16 08:15 09/16/16 08:15 Intake and Output: 09/16/16 09/16/16 06:59 18:59 Intake Total 4190 Balance 4190 - Medications Medications: Current Medications Acetaminophen/Butalbital/Caffeine (Fioricet) 1 tab PO Q4 PRN PRN Reason: Migraine headache Last Admin: 09/16/16 12:51 Dose: 1 tab Enoxaparin Sodium (Lovenox) 40 mg SC DAILY [facility] Last Admin: 09/16/16 09:23 Dose: 40 mg Metronidazole (Flagyl) 100 mls @ 100 mls/hr IVPB Q8 [facility] Last Admin: 09/16/16 06:06 Dose: 100 mls/hr Piperacillin Sod/Tazobactam Sod (Zosyn 3.375 Gm Iv Premix) 50 mls @ 100 mls/hr IVPB Q6H [facility] Last Admin: 09/16/16 12:51 Dose: 100 mls/hr Sodium Chloride (Sodium Chloride 0.9%) 1,000 mls @ 75 mls/hr IV .[id number] [facility] Last Admin: 09/16/16 11:42 Dose: 75 mls/hr Insulin Aspart (Novolog) 5 unit SC TIDAC [facility] Last Admin: 09/16/16 11:53 Dose: 5 unit Insulin Glargine (Lantus) 17 unit SC HS [facility] Last Admin: 09/15/16 21:41 Dose: 17 unit Insulin Human Regular (Novolin R) 0 unit SC ACHS [facility] PRN Reason: Protocol Last Admin: 09/16/16 11:48 Dose: Not Given Lisinopril (Zestril) 2.5 mg PO DAILY [facility] Morphine Sulfate (Morphine) 2 mg IVP Q4 PRN PRN Reason: Pain, moderate (4-7) Last Admin: 09/13/16 18:13 Dose: 2 mg Sossl-7-Dsxm Ethyl Esters (Lovaza) 1 gm PO BID [facility] Last Admin: 09/16/16 09:23 Dose: 1 gm Ondansetron HCl (Zofran Inj) 4 mg IVP Q6H PRN PRN Reason: Nausea/Vomiting Last Admin: 09/14/16 04:41 Dose: 4 mg Pantoprazole Sodium (Protonix Inj) 40 mg IVP DAILY [facility] Last Admin: 09/16/16 09:24 Dose: 40 mg Rosuvastatin Calcium (Crestor) 2.5 mg PO HS [facility] Last Admin: 09/15/16 21:41 Dose: 2.5 mg Saccharomyces Boulardii (Florastor) 250 mg PO BID [facility] Last Admin: 09/16/16 09:23 Dose: 250 mg Trazodone HCl (Desyrel) 25 mg PO HS PRN PRN Reason: Insomnia - Labs Labs: 09/16/16 07:59 09/16/16 07:59 - Constitutional Appears: Non-toxic, Cachectic, Chronically Ill - Head Exam Head Exam: absent: NORMOCEPHALIC - Eye Exam Eye Exam: PERRL. absent: Scleral icterus - Neck Exam Neck Exam: absent: Lymphadenopathy - Respiratory Exam Respiratory Exam: Decreased Breath Sounds, Clear to Ausculation Bilateral - Cardiovascular Exam Cardiovascular Exam: REGULAR RHYTHM, +S1, +S2 - GI/Abdominal Exam GI & Abdominal Exam: Distended, Soft. absent: Tenderness - Rectal Exam Rectal Exam: Deferred - Extremities Exam Extremities Exam: absent: Calf Tenderness, Pedal Edema - Back Exam Back Exam: absent: CVA tenderness (L), CVA tenderness (R) Assessment and Plan (1) Emphysematous pyelonephritis of left kidney Status: Acute (2) Nausea Status: Acute (3) Uncontrolled diabetes mellitus Status: Acute (4) Vomiting Status: Acute (5) Abdominal discomfort Status: Acute (6) Anxiety Status: Acute (7) Depression Status: Acute
[2016-09-16] MEDS: cefTRIAXone 2 GM in Sodium Chloride 0.9% 100 ML IVPB SCH (15:30)
[2016-09-16] MEDS: Rosuvastatin Calcium 2.5 mg Tab PO SCH (21:35)
[2016-09-16] MEDS: (Lantus) Insulin Glargine, Recombinant SC SCH (21:36)
[2016-09-17] MEDS: Sodium Chloride 0.9% 1,000 ML IV SCH ×2 (01:00→12:30)
[2016-09-17] MEDS: metroNIDAZOLE IV 500 mg/100 ml 100 ML IVPB SCH ×2 (06:18→14:04)
[2016-09-17] MEDS: (Novolin R) Insulin Human Regular 100 units/ml vial SC SCH ×2 (07:52→12:29)
[2016-09-17 08:15] LABS: BASO % 0.2 % (0.0-2.0); EOS % 0.9 % (0.0-4.0); LYMPH # 1.4 K/uL (1.0-4.3); WHITE BLOOD COUNT 5.3 K/uL (4.8-10.8)
[2016-09-17] MEDS: (Novolog) Insulin Aspart, Recombinant 100 u/ml 10 ml vial SC SCH ×2 (08:19→12:28)
[2016-09-17 08:23] LABS: HEMATOCRIT 37.1 % (34.0-47.0); LYMPH % 26.1 % (20.0-40.0); MEAN CELL VOLUME 85.9 fL (81.0-99.0); MEAN CORPUSCULAR HEMOGLOBIN 28.1 pg (27.0-31.0); MEAN CORPUSCULAR HGB CONC 32.7 g/dL (33.0-37.0); MEAN PLATELET VOLUME 8.2 fL (7.2-11.7); MONO # 0.5 K/uL (0.0-0.8); MONO % 9.3 % (0.0-10.0); NRBC % 0.1 % (0.0-2.0); RED CELL DISTRIBUTION WIDTH 13.2 % (11.5-14.5)
[2016-09-17 08:25] VITALS: BP 159/83; PULSE 74; TEMP 97.7; O2SAT 97
[2016-09-17 08:27] LABS: CHLORIDE 103 mmol/L (98-107)
[2016-09-17 08:28] LABS: POTASSIUM 3.7 mmol/L (3.6-5.2); SODIUM 140 mmol/L (132-148)
[2016-09-17 08:30] LABS: ALKALINE PHOSPHATASE 94 U/L (38-126); AST/SGOT 120 U/L (14-36); BILIRUBIN,TOTAL 0.2 mg/dL (0.2-1.3); BLOOD UREA NITROGEN 5 mg/dL (7-17); CARBON DIOXIDE 27 mmol/L (22-30); GFR AFRICAN-AMERICAN > 60; TOTAL PROTEIN 8.3 g/dL (6.3-8.3)
[2016-09-17 08:31] LABS: ALT/SGPT 68 U/L (9-52); CALCIUM 8.9 mg/dl (8.6-10.4); GLUCOSE,RANDOM 114 mg/dL (65-105); MAGNESIUM 1.9 mg/dL (1.6-2.3)
[2016-09-17] MEDS ORDERED: Potassium Chloride 20 mEq ER Tab PO STA (09:27)
[2016-09-17] MEDS: Enoxaparin 40 mg Syringe SC SCH (09:46)
[2016-09-17] MEDS: Omega-3-Acid Ethyl Esters 1 GM Cap PO SCH (09:47)
[2016-09-17] MEDS: Saccharomyces Boulardi 250 mg Cap PO SCH (09:47)
[2016-09-17] MEDS: Apap-Butalbital-Caffeine 325-50-40mg Tab PO PRN (09:50)
[2016-09-17] MEDS: cefTRIAXone 2 GM in Sodium Chloride 0.9% 100 ML IVPB SCH (10:09)
--- NOTE | 2016-09-17 11:52 | CP.PCM.PN ---
Subjective - Date & Time of Evaluation Date of Evaluation: 09/17/16 Time of Evaluation: 08:00 - Subjective Subjective: discussed on rounds cont rx for 21 days Objective - Vital Signs/Intake and Output Vital Signs (last 24 hours): Temp Pulse Resp BP Pulse Ox 97.7 F 74 20 159/83 H 97 09/17/16 08:20 09/17/16 08:20 09/17/16 08:20 09/17/16 08:20 09/17/16 08:20 Intake and Output: 09/17/16 09/17/16 06:59 18:59 Intake Total 600 700 Balance 600 700 - Medications Medications: Current Medications Acetaminophen/Butalbital/Caffeine (Fioricet) 1 tab PO Q4 PRN PRN Reason: Migraine headache Last Admin: 09/17/16 09:50 Dose: 1 tab Enoxaparin Sodium (Lovenox) 40 mg SC DAILY [facility] Last Admin: 09/17/16 09:46 Dose: 40 mg Metronidazole (Flagyl) 100 mls @ 100 mls/hr IVPB Q8 [facility] Last Admin: 09/17/16 06:18 Dose: 100 mls/hr Sodium Chloride (Sodium Chloride 0.9%) 1,000 mls @ 75 mls/hr IV .[id number] [facility] Last Admin: 09/17/16 01:00 Dose: 75 mls/hr Ceftriaxone Sodium 2 gm/ (Sodium Chloride) 100 mls @ 100 mls/hr IVPB DAILY [facility] Last Admin: 09/17/16 10:09 Dose: 100 mls/hr Insulin Aspart (Novolog) 5 unit SC TIDAC [facility] Last Admin: 09/17/16 08:19 Dose: 5 unit Insulin Glargine (Lantus) 17 unit SC HS [facility] Last Admin: 09/16/16 21:36 Dose: 17 unit Insulin Human Regular (Novolin R) 0 unit SC ACHS BARRY PRN Reason: Protocol Last Admin: 09/17/16 07:52 Dose: Not Given Lisinopril (Zestril) 2.5 mg PO DAILY [facility] Last Admin: 09/17/16 09:49 Dose: 2.5 mg Pcqpm-[id number] Ethyl Esters (Lovaza) 1 gm PO BID [facility] Last Admin: 09/17/16 09:47 Dose: 1 gm Ondansetron HCl (Zofran Inj) 4 mg IVP Q6H PRN PRN Reason: Nausea/Vomiting Last Admin: 09/14/16 04:41 Dose: 4 mg Pantoprazole Sodium (Protonix Inj) 40 mg IVP DAILY [facility] Last Admin: 09/17/16 09:47 Dose: 40 mg Rosuvastatin Calcium (Crestor) 2.5 mg PO HS [facility] Last Admin: 09/16/16 21:35 Dose: 2.5 mg Saccharomyces Boulardii (Florastor) 250 mg PO BID [facility] Last Admin: 09/17/16 09:47 Dose: 250 mg Trazodone HCl (Desyrel) 25 mg PO HS PRN PRN Reason: Insomnia - Labs Labs: 09/17/16 08:08 09/17/16 08:08 Assessment and Plan (1) Emphysematous pyelonephritis of left kidney Status: Acute (2) Nausea Status: Acute (3) Uncontrolled diabetes mellitus Status: Acute (4) Vomiting Status: Acute (5) Abdominal discomfort Status: Acute (6) Anxiety Status: Acute (7) Depression Status: Acute
--- NOTE | 2016-09-17 12:49 | PN ---
DATE: 09/17/2016 The patient is currently completely relatively asymptomatic except for some headaches. Her pain is c ompletely resolved today. She denies any dysuria, gross hematuria, renal colic, or abdominal pain at this time. PHYSICAL EXAMINATION: ABDOMEN: Soft not distended or tender. No CVA tenderness and no suprapubic tenderness. VITAL SIGNS: Today, her temperature is 97.7 orally. Pulse rate is 74, blood pressure 159/83. Respi rations are 20 and her O2 sat on room air is 97%. LABORATORY DATA: Today, 09/17/2016, a CBC shows a completely normal white count of 5.3, hemoglobin of 12.1, hematocrit 37.1 and platelet count of 391,000. Chem profile shows a sodium of 140, potassium 3.7, chloride 103, CO2 of 27, BUN and creatinine of 5 and 0.6 respectively with a GFR of greater than 60 and her random glucose is 114. Calcium is 8.9. Her total bilirubin is 0.2. Her AST is 120 and her ALT is 68, both elevated. Alk phos is 68, which is also elevated. Her hepatitis profile seems t o be negative at this time. DIAGNOSTIC IMPRESSION: Left emphysematous pyelonephritis which seems to be responding extremely well to IV antibiotics. PLAN: Discharge as per ID. No urologic intervention is required at this time. The patient can be s een in office followup in 2 weeks. Rocky Cruz MD cc: [id number] TT: 09/17/2016 12:48:42 Confirmation # [id number] Dictation # [id number]
--- NOTE | 2016-09-17 14:27 | CP.PCM.DIS ---
Addendum entered and electronically signed by Rose Mary Kulkarni DO 09/17/16 14: 39: Original Note: <Rose Mary Kulkarni - Last Filed: 09/17/16 14:24> Provider - Provider Date of Admission: 09/13/16 05:29 Attending physician: Judson Nguyễn MD Consults: Urology: Dr. Lee Infectious Disease: Dr. Smith Time Spent in preparation of Discharge (in minutes): 31 Diagnosis - Discharge Diagnosis (1) Emphysematous pyelonephritis of left kidney Status: Acute Comment: please see hospital course (2) Nausea Status: Acute Comment: please see hospital course (3) Uncontrolled diabetes mellitus Status: Acute Comment: please see hospital course (4) Vomiting Status: Acute Comment: please see hospital course (5) Anxiety Status: Acute Comment: please see hospital course (6) Depression Status: Acute Comment: please see hospital course Hospital Course - Lab Results Lab Results: Micro Results 09/16/16 06:00 Stool Ova and Parasite Concentrate Exam - Final Most Recent Lab Values WBC 5.3 K/uL (4.8-10.8) 09/17/16 08:08 RBC 4.32 Mil/uL (3.80-5.20) 09/17/16 08:08 Hgb 12.1 g/dL (11.0-16.0) 09/17/16 08:08 Hct 37.1 % (34.0-47.0) 09/17/16 08:08 MCV 85.9 fL (81.0-99.0) 09/17/16 08:08 MCH 28.1 pg (27.0-31.0) 09/17/16 08:08 MCHC 32.7 g/dL (33.0-37.0) L 09/17/16 08:08 RDW 13.2 % (11.5-14.5) 09/17/16 08:08 Plt Count 391 K/uL (130-400) D 09/17/16 08:08 MPV 8.2 fL (7.2-11.7) 09/17/16 08:08 Neut % (Auto) 63.5 % (50.0-75.0) 09/17/16 08:08 Lymph % (Auto) 26.1 % (20.0-40.0) 09/17/16 08:08 [place] % (Auto) 9.3 % (0.0-10.0) 09/17/16 08:08 Eos % (Auto) 0.9 % (0.0-4.0) 09/17/16 08:08 Baso % (Auto) 0.2 % (0.0-2.0) 09/17/16 08:08 Neut # 3.3 K/uL (1.8-7.0) 09/17/16 08:08 Lymph # 1.4 K/uL (1.0-4.3) 09/17/16 08:08 [place] # 0.5 K/uL (0.0-0.8) 09/17/16 08:08 Eos # 0.0 K/uL (0.0-0.7) 09/17/16 08:08 Baso # 0.0 K/uL (0.0-0.2) 09/17/16 08:08 Neutrophils % (Manual) 65 % (50-75) 09/13/16 10:22 Band Neutrophils % 15 % (0-2) H* 09/13/16 10:22 Lymphocytes % (Manual) 8 % (20-40) L 09/13/16 10:22 Monocytes % (Manual) 12 % (0-10) H 09/13/16 10:22 Platelet Estimate Normal (NORMAL) 09/13/16 10:22 Large Platelets Present 09/12/16 22:45 RBC Morphology Normal 09/13/16 10:22 Microcytosis (manual) Slight 09/12/16 22:45 pO2 30 mm/Hg (30-55) 09/13/16 04:55 VBG pH 7.39 (7.32-7.43) 09/13/16 04:55 VBG pCO2 35 mmHg (40-60) L 09/13/16 04:55 VBG HCO3 21.4 mmol/L 09/13/16 04:55 VBG Total CO2 22.3 mmol/L (22-28) 09/13/16 04:55 VBG O2 Sat (Calc) 62.2 % (40-65) 09/13/16 04:55 VBG Base Excess -3.1 mmol/L (0.0-2.0) L 09/13/16 04:55 VBG Potassium 3.7 mmol/L (3.6-5.2) 09/13/16 04:55 Sodium 138.0 mmol/l (132-148) 09/13/16 04:55 Chloride 110.0 mmol/L (98-107) H 09/13/16 04:55 Glucose 297 mg/dl (65-105) H 09/13/16 04:55 Lactate 1.7 mmol/L (0.7-2.1) 09/13/16 04:55 Sodium 140 mmol/L (132-148) 09/17/16 08:08 Potassium 3.7 mmol/L (3.6-5.2) 09/17/16 08:08 Chloride 103 mmol/L (98-107) 09/17/16 08:08 Carbon Dioxide 27 mmol/L (22-30) 09/17/16 08:08 Anion Gap 14 (10-20) 09/17/16 08:08 BUN 5 mg/dL (7-17) L 09/17/16 08:08 Creatinine 0.6 MG/DL (0.7-1.2) L 09/17/16 08:08 Est GFR ( Amer) > 60 09/17/16 08:08 Est GFR (Non-Af Amer) > 60 09/17/16 08:08 POC Glucose (mg/dL) 177 mg/dL (65-110) H 09/17/16 11:15 Random Glucose 114 mg/dL (65-105) H 09/17/16 08:08 Hemoglobin A1c 12.8 % (4.2-6.5) H D 09/13/16 09:27 Calcium 8.9 mg/dl (8.6-10.4) 09/17/16 08:08 Magnesium 1.9 mg/dL (1.6-2.3) 09/17/16 08:08 Total Bilirubin 0.2 mg/dL (0.2-1.3) 09/17/16 08:08 AST 120 U/L (14-36) H D 09/17/16 08:08 ALT 68 U/L (9-52) H D 09/17/16 08:08 Alkaline Phosphatase 94 U/L (38-126) 09/17/16 08:08 Total Protein 8.3 g/dL (6.3-8.3) 09/17/16 08:08 Albumin 4.1 g/dL (3.5-5.0) 09/17/16 08:08 Globulin 4.2 gm/dL (2.2-3.9) H 09/17/16 08:08 Albumin/Globulin Ratio 1.0 (1.0-2.1) 09/17/16 08:08 Triglycerides 230 mg/dL (0-149) H 09/13/16 09:27 Cholesterol 168 mg/dL (0-199) 09/13/16 09:27 LDL Cholesterol Direct 84 mg/dL (0-129) 09/13/16 09:27 HDL Cholesterol 27 mg/dL (30-70) L 09/13/16 09:27 Lipase 38 U/L (23-300) 09/12/16 22:55 Free T4 0.85 ng/dL (0.78-2.19) 09/13/16 09:27 TSH 3rd Generation 1.08 mIU/L (0.46-4.68) 09/13/16 09:27 Venous Blood Potassium 3.7 mmol/L (3.6-5.2) 09/13/16 04:55 Urine Color Straw (YELLOW) 09/13/16 02:23 Urine Clarity Hazy (Clear) 09/13/16 02:23 Urine pH 6.0 (5.0-8.0) 09/13/16 02:23 Ur Specific [place] 1.016 (1.003-1.030) 09/13/16 02:23 Urine Protein 2+ mg/dL (NEGATIVE) H 09/13/16 02:23 Urine Glucose (UA) 3+ mg/dL (Normal) H 09/13/16 02:23 Urine Ketones 1+ mg/dL (NEGATIVE) H 09/13/16 02:23 Urine Blood Negative (NEGATIVE) 09/13/16 02:23 Urine Nitrate Negative (NEGATIVE) 09/13/16 02:23 Urine Bilirubin Negative (NEGATIVE) 09/13/16 02:23 Urine Urobilinogen Normal mg/dL (0.2-1.0) 09/13/16 02:23 Ur Leukocyte Esterase 3+ Chap[place]/uL (Negative) H 09/13/16 02:23 Urine WBC (Auto) 112 /hpf (0-5) H 09/13/16 02:23 Urine RBC (Auto) 12 /hpf (0-3) H 09/13/16 02:23 Urine Bacteria Rare (<OCC) 09/13/16 02:23 Urine HCG, Qual Negative (NEGATIVE) 09/13/16 02:23 Stool Occult Blood Negative (NEGATIVE) 09/16/16 17:24 C. difficile Ag & Toxin Negative (NEGATIVE) 09/16/16 06:00 Hepatitis A IgM Ab Negative (NEGATIVE) 09/16/16 12:53 Hep Bs Antigen Negative (NEGATIVE) 09/16/16 12:53 Hep B Core IgM Ab Negative (NEGATIVE) 09/16/16 12:53 Hepatitis C Antibody Negative (NEGATIVE) 09/16/16 12:53 - Hospital Course Hospital Course: On hospital admission: HPI: Patient is a 46 year old female with medical history of DM, HTN, frequent UTI, gastritis, hypothyroidism, depression, and bipolar disorder who presents with complaint of abdominal pain that began Saturday. Patient states she was starting to feel unwell on Saturday with nasal congestion and had a headache which resolved with Tylenol. Patient states she started vomiting on Saturday and could not tolerate any foods or liquids. Patient states that she thinks she vomits 7-8 times per day. She states she tried to drink water but even that caused her to vomit. Patient states she feels a burning sensation that is worse with movement. Patient admits to back pain that has been chronic, as well as frequent urinary infections with foul smelling urine, although she does not think she has one now. Patient also complains of increased thirst and urination. Patient admits to recent depressed feelings since she lost her insurance. PMHx: as above Meds: has not had any for at least 3 months since she lost her insurance PSHx: bilateral cataract removal FamHx: father with diabetes SocialHx: denies tobacco, alcohol, drugs; lives with mother; unemployed On Hospital course: During hospital course,the following procedures/imaging were done: EKG (09/12/16): Sinus tachycardia, ST & T wave abnormality, consider inferior ischemia CT abdomen/pelvis (09/13/16): Air is seen within the left renal collecting system most prominent within the renal hilum but also noted within the left ureter and the urinary bladder. Perinephric stranding. Findings may be seen in the setting of emphysematous pyelonephritis. Hepatomegaly, hepatosteatosis. Prominent pelvic vessels particularly within the left adnexa; correlate for pelvic congestion syndrome. Small pelvic free fluid. Renal ultrasound (09/13/16): Left kidney enlarged meauring 13.6 x 6.9 x 6.4 cm. Fullness of the left renal collecting system. In correlation with the CT scan, there appears to be air noted within the renal collecting system. Perinephric fat stranding. Correlation with recent instrumentation or urinary retrograde study is recommended. Alternatively, these findings may be seen in the setting of emphysematous pyelonephritis. Emphysematous pyelonephritis of left kidney Patient was first given Ampicillin 1gm IVPB, Gentamicin sulfate 80mg IVPB and Metronidazole IVPB stat in the ED. On the first day of admission, patient was found to be febrile at 102.6 degrees F and had labs showing bandemia. On the medicine floor, patient was started on Metronidazole IVPB Q8H, Zosyn 3.375 gm IVPB Q6, and Tylenol 650mg PO Q6H PRN for fever. Urinalysis was positive for infection, and urology and infectious disease were consulted. Urine cultures showed proteus mirabilis, so Zosyn was discontinued and Rocephin 2gm IVPB was started as per infectious disease recommendations. Patient was afebrile by day 2 and symptoms improved each and every day. Abdominal pain with nausea Patient was given Zofran 4mg IVP Q6H when needed for nausea and morphine 2mg IVP Q6H when needed for pain. On day 2-3, patient complained of 4-5 episodes of diarrhea, so c diff and ova/parasite studies were ordered, all of which came back negative. Patient was first started on liquid diet but then advanced to regular diet by day 3-4, which seemed to help her abdominal discomfort. Hx of diabetes Hemoglobin A1c was checked and found to be high at 12.8. Sliding scale insulin was started at every meal, and accuchecks were performed. Metformin was held, as patient had received IV contrast for CT scan. After one day, the patient's blood glucose was still uncontrolled in the 250s, so Novolog 5 units SC TIDAC and Lantus 17 units SC HS were started. Hx of hypothyroidism Thyroid studies were performed and were found to be within range. TSH 1.08 and Free T4 0.85. Hx of hyperlipidemia Lipid panel was performed, Triglycerides were 230, cholesterol 168, LDL 84, HDL 27. Lovaza 1gm po BID and Crestor 2/5mg po HS were started. Hx of hypertension Patient was normotensive upon admission and was continually monitored throughout her stay. Prophylactic measures SCDs, Protonix 40mg IVP daily, and Florastor daily During the hospital course, the following specialists were consulted: Dr. Cruz, Urology: Recommended continuing IV antibiotics. Discharge as per infectious disease recommendations. Patient can be seen as outpatient [address] Smith, Infectious diseases: Recommended urine cultures and continuing initial IV antibiotics until cultures came back. Started Rocephin and Metronidazole for proteus infection. Recommends 21 days total antibiotics, which can be completed outpatient PO. Recommend urine cultures once a week until antibiotic therapy is completed. Please note this is a summary of the hospital course. For full details, please refer to patient chart. Discharge instructions were given as follows: Patient medically stable for discharge. Patient instructed to take the following medications as prescribed: Ciprofloxacin 500 mg tab by mouth twice daily for 21 days (42 pills) Florastor 250 mg by mouth twice daily for 21 days (42 pills) Metformin 500 mg tab by mouth twice daily Lisinopril 2.5 mg tab by mouth daily Lovaza 1 gm by mouth twice daily Crestor 2.5 mg by mouth at night Patient instructed to establish care and follow-up at [facility] within one week of discharge from hospital. Patient will require weekly urinalysis and urine culture. Patient instructed to follow-up with urologist, Dr. Cruz, within one week of discharge from the hospital. Patient educated that she must monitor blood sugar closely. Prescription for glucometer and lancets given. Patient instructed to return to the emergency department if symptoms recur. Patient given detailed instructions at bedside. Patient understands and agrees. - Date & Time of H&P Date of H&P: 09/13/16 Time of H&P: 05:30 Discharge Exam - Head Exam Head Exam: absent: NORMOCEPHALIC - Eye Exam Eye Exam: EOMI, Normal appearance, PERRL - ENT Exam ENT Exam: Mucous Membranes Moist - Respiratory Exam Respiratory Exam: NORMAL BREATHING PATTERN, UNREMARKABLE. absent: Wheezes, Respiratory Distress - Cardiovascular Exam Cardiovascular Exam: +S1, +S2. absent: Tachycardia - GI/Abdominal Exam GI & Abdominal Exam: Normal Bowel Sounds, Soft. absent: Firm, Guarding - Extremities Exam Extremities exam: normal capillary refill, normal inspection, pedal pulses present - Neurological Exam Neurological exam: Alert, CN II-XII Intact, Oriented x3 - Psychiatric Exam Psychiatric exam: Normal Affect, Normal Mood - Skin Skin Exam: Intact, Normal Color, Warm Discharge Plan - Discharge Medications Prescriptions: Ciprofloxacin HCl [Cipro] 500 mg PO BID #42 tablet Rosuvastatin Calcium 2.5 [Crestor] 2.5 mg PO HS #30 tab Saccharomyces Boulardi [Florastor] 250 mg PO BID #60 cap Metformin HCl [Glucophage] 500 mg PO BID #60 tablet [id number] Ethyl Esters 1 GM [Lovaza] 1 gm PO BID #60 sgl Lisinopril [Zestril] 2.5 mg PO DAILY #30 tab - Follow Up Plan Condition: GUARDED Disposition: HOME/ ROUTINE Instructions: Ciprofloxacin (By mouth), Metformin (By mouth), Rosuvastatin (By mouth), Probiotic (By mouth), [id number] Ethyl Esters (By mouth), Urinary Tract Infection in Women (DC), Urinary Tract Infection in Men (DC), Dysuria (GEN ) Additional Instructions: Patient medically stable for discharge. Patient instructed to take the following medications as prescribed: Ciprofloxacin 500 mg tab by mouth twice daily for 21 days (42 pills) Florastor 250 mg by mouth twice daily for 21 days (42 pills) Metformin 500 mg tab by mouth twice daily Lisinopril 2.5 mg tab by mouth daily Lovaza 1 gm by mouth twice daily Crestor 2.5 mg by mouth at night Patient instructed to establish care and follow-up at [facility] within one week of discharge from hospital. Patient will require weekly urinalysis and urine culture. Patient instructed to follow-up with urologist, Dr. Cruz, within one week of discharge from the hospital. Patient educated that she must monitor blood sugar closely. Prescription for glucometer and lancets given. Patient instructed to return to the emergency department if symptoms recur. Patient given detailed instructions at bedside. Patient understands and agrees. Referrals: Shana Ventura MD [Staff Provider] - Rocky Cruz MD [Staff Provider] - <Chivo Murphy - Last Filed: 09/17/16 15:21> Provider - Provider Date of Admission: 09/13/16 05:29 Attending physician: Judson Nguyễn MD Hospital Course - Lab Results Lab Results: Micro Results 09/16/16 06:00 Stool Ova and Parasite Concentrate Exam - Final Most Recent Lab Values WBC 5.3 K/uL (4.8-10.8) 09/17/16 08:08 RBC 4.32 Mil/uL (3.80-5.20) 09/17/16 08:08 Hgb 12.1 g/dL (11.0-16.0) 09/17/16 08:08 Hct 37.1 % (34.0-47.0) 09/17/16 08:08 MCV 85.9 fL (81.0-99.0) 09/17/16 08:08 MCH 28.1 pg (27.0-31.0) 09/17/16 08:08 MCHC 32.7 g/dL (33.0-37.0) L 09/17/16 08:08 RDW 13.2 % (11.5-14.5) 09/17/16 08:08 Plt Count 391 K/uL (130-400) D 09/17/16 08:08 MPV 8.2 fL (7.2-11.7) 09/17/16 08:08 Neut % (Auto) 63.5 % (50.0-75.0) 09/17/16 08:08 Lymph % (Auto) 26.1 % (20.0-40.0) 09/17/16 08:08 [place] % (Auto) 9.3 % (0.0-10.0) 09/17/16 08:08 Eos % (Auto) 0.9 % (0.0-4.0) 09/17/16 08:08 Baso % (Auto) 0.2 % (0.0-2.0) 09/17/16 08:08 Neut # 3.3 K/uL (1.8-7.0) 09/17/16 08:08 Lymph # 1.4 K/uL (1.0-4.3) 09/17/16 08:08 [place] # 0.5 K/uL (0.0-0.8) 09/17/16 08:08 Eos # 0.0 K/uL (0.0-0.7) 09/17/16 08:08 Baso # 0.0 K/uL (0.0-0.2) 09/17/16 08:08 Neutrophils % (Manual) 65 % (50-75) 09/13/16 10:22 Band Neutrophils % 15 % (0-2) H* 09/13/16 10:22 Lymphocytes % (Manual) 8 % (20-40) L 09/13/16 10:22 Monocytes % (Manual) 12 % (0-10) H 09/13/16 10:22 Platelet Estimate Normal (NORMAL) 09/13/16 10:22 Large Platelets Present 09/12/16 22:45 RBC Morphology Normal 09/13/16 10:22 Microcytosis (manual) Slight 09/12/16 22:45 pO2 30 mm/Hg (30-55) 09/13/16 04:55 VBG pH 7.39 (7.32-7.43) 09/13/16 04:55 VBG pCO2 35 mmHg (40-60) L 09/13/16 04:55 VBG HCO3 21.4 mmol/L 09/13/16 04:55 VBG Total CO2 22.3 mmol/L (22-28) 09/13/16 04:55 VBG O2 Sat (Calc) 62.2 % (40-65) 09/13/16 04:55 VBG Base Excess -3.1 mmol/L (0.0-2.0) L 09/13/16 04:55 VBG Potassium 3.7 mmol/L (3.6-5.2) 09/13/16 04:55 Sodium 138.0 mmol/l (132-148) 09/13/16 04:55 Chloride 110.0 mmol/L (98-107) H 09/13/16 04:55 Glucose 297 mg/dl (65-105) H 09/13/16 04:55 Lactate 1.7 mmol/L (0.7-2.1) 09/13/16 04:55 Sodium 140 mmol/L (132-148) 09/17/16 08:08 Potassium 3.7 mmol/L (3.6-5.2) 09/17/16 08:08 Chloride 103 mmol/L (98-107) 09/17/16 08:08 Carbon Dioxide 27 mmol/L (22-30) 09/17/16 08:08 Anion Gap 14 (10-20) 09/17/16 08:08 BUN 5 mg/dL (7-17) L 09/17/16 08:08 Creatinine 0.6 MG/DL (0.7-1.2) L 09/17/16 08:08 Est GFR ( Amer) > 60 09/17/16 08:08 Est GFR (Non-Af Amer) > 60 09/17/16 08:08 POC Glucose (mg/dL) 177 mg/dL (65-110) H 09/17/16 11:15 Random Glucose 114 mg/dL (65-105) H 09/17/16 08:08 Hemoglobin A1c 12.8 % (4.2-6.5) H D 09/13/16 09:27 Calcium 8.9 mg/dl (8.6-10.4) 09/17/16 08:08 Magnesium 1.9 mg/dL (1.6-2.3) 09/17/16 08:08 Total Bilirubin 0.2 mg/dL (0.2-1.3) 09/17/16 08:08 AST 120 U/L (14-36) H D 09/17/16 08:08 ALT 68 U/L (9-52) H D 09/17/16 08:08 Alkaline Phosphatase 94 U/L (38-126) 09/17/16 08:08 Total Protein 8.3 g/dL (6.3-8.3) 09/17/16 08:08 Albumin 4.1 g/dL (3.5-5.0) 09/17/16 08:08 Globulin 4.2 gm/dL (2.2-3.9) H 09/17/16 08:08 Albumin/Globulin Ratio 1.0 (1.0-2.1) 09/17/16 08:08 Triglycerides 230 mg/dL (0-149) H 09/13/16 09:27 Cholesterol 168 mg/dL (0-199) 09/13/16 09:27 LDL Cholesterol Direct 84 mg/dL (0-129) 09/13/16 09:27 HDL Cholesterol 27 mg/dL (30-70) L 09/13/16 09:27 Lipase 38 U/L (23-300) 09/12/16 22:55 Free T4 0.85 ng/dL (0.78-2.19) 09/13/16 09:27 TSH 3rd Generation 1.08 mIU/L (0.46-4.68) 09/13/16 09:27 Venous Blood Potassium 3.7 mmol/L (3.6-5.2) 09/13/16 04:55 Urine Color Straw (YELLOW) 09/13/16 02:23 Urine Clarity Hazy (Clear) 09/13/16 02:23 Urine pH 6.0 (5.0-8.0) 09/13/16 02:23 Ur Specific [place] 1.016 (1.003-1.030) 09/13/16 02:23 Urine Protein 2+ mg/dL (NEGATIVE) H 09/13/16 02:23 Urine Glucose (UA) 3+ mg/dL (Normal) H 09/13/16 02:23 Urine Ketones 1+ mg/dL (NEGATIVE) H 09/13/16 02:23 Urine Blood Negative (NEGATIVE) 09/13/16 02:23 Urine Nitrate Negative (NEGATIVE) 09/13/16 02:23 Urine Bilirubin Negative (NEGATIVE) 09/13/16 02:23 Urine Urobilinogen Normal mg/dL (0.2-1.0) 09/13/16 02:23 Ur Leukocyte Esterase 3+ Chapar[place]/uL (Negative) H 09/13/16 02:23 Urine WBC (Auto) 112 /hpf (0-5) H 09/13/16 02:23 Urine RBC (Auto) 12 /hpf (0-3) H 09/13/16 02:23 Urine Bacteria Rare (<OCC) 09/13/16 02:23 Urine HCG, Qual Negative (NEGATIVE) 09/13/16 02:23 Stool Occult Blood Negative (NEGATIVE) 09/16/16 17:24 C. difficile Ag & Toxin Negative (NEGATIVE) 09/16/16 06:00 Hepatitis A IgM Ab Negative (NEGATIVE) 09/16/16 12:53 Hep Bs Antigen Negative (NEGATIVE) 09/16/16 12:53 Hep B Core IgM Ab Negative (NEGATIVE) 09/16/16 12:53 Hepatitis C Antibody Negative (NEGATIVE) 09/16/16 12:53 Attending/Attestation - Attestation I have personally seen and examined this patient.: Yes I have fully participated in the care of the patient.: Yes I have reviewed all pertinent clinical information, including history, physical exam and plan: Yes Notes (Text): 09/17/16 15:20 Patient was seen and examined at bedside with the resident Patient stated that she is feeling much better. Denies any dysuria. Denies any flank pain. Discussed with ID by the resident. Patient is cleared for discharge on oral antibiotics She will follow-up with the [facility] for follow-up urine cultures. Patient will also need follow-up with urology. Discussed the plan of care with the patient and she verbalized understanding I agree with the above history and physical and assessment/plan by the resident.
--- NOTE | 2016-09-17 18:12 | CARD ---
APPROVED REPORT EKG Measurement Heart [id number] <Conclusion> Sinus tachycardia ST & T wave abnormality, consider inferior ischemia Abnormal ECG
== END 2016-09-17 17:05 | disposition home or self-care (01) | DRG 320 ==
LOC: C.ER 21:41 → C.9E 09-13 05:29 → C.3T 09-13 15:58
PROVIDERS: ADMIT Internal Medicine; ATTEND Internal Medicine
DX: N10 Acute pyelonephritis (principal); E11.65 Type 2 diabetes mellitus with hyperglycemia; I10 Essential (primary) hypertension; E78.5 Hyperlipidemia, unspecified; E03.9 Hypothyroidism, unspecified; F32.9 Major depressive disorder, single episode, unspecified; F41.9 Anxiety disorder, unspecified; R11.2 Nausea with vomiting, unspecified; Z79.4 Long term (current) use of insulin; Z98.42 Cataract extraction status, left eye; Z98.41 Cataract extraction status, right eye; Z87.440 Personal history of urinary (tract) infections

== ENCOUNTER 2017-05-08 06:07 | Emergency (ER) | payer MEDICAID, OTHER ==
[2017-05-08 06:22] VITALS: O2SAT 97
[2017-05-08] MEDS ORDERED: Sodium Chloride 0.9% 1,000 ML IV STA (06:56)
[2017-05-08] MEDS ORDERED: Sodium Chloride 0.9% 1,000 ML ONE (07:05)
[2017-05-08 07:17] LABS: BASO % 0.3 % (0.0-2.0); EOS % 0.3 % (0.0-4.0); HEMATOCRIT 37.1 % (34.0-47.0); LYMPH % 12.2 % (20.0-40.0); MEAN CELL VOLUME 83.4 fL (81.0-99.0); MEAN CORPUSCULAR HEMOGLOBIN 29.5 pg (27.0-31.0); MEAN CORPUSCULAR HGB CONC 35.3 g/dL (33.0-37.0); MONO # 0.7 K/uL (0.0-0.8); MONO % 8.3 % (0.0-10.0); NRBC % 0.1 % (0.0-2.0); WHITE BLOOD COUNT 8.5 K/uL (4.8-10.8)
--- NOTE | 2017-05-08 07:21 | C.PDOC ---
History Of Present Illness 47 year old female with PMHx of recurrent UTIs presents to the ED for evaluation of left flank pain radiating anteriorly along with 2 episodes of vomit. Patient states this symptoms are similar to previous episode when she had a kidney infection. Patient denies hematuria, fever, chills, nausea, change in bowel habits. Time Seen by Provider: 05/08/17 06:52 Chief Complaint (Nursing): Abdominal Pain History Per: Patient History/Exam Limitations: no limitations Onset/Duration Of Symptoms: Days Current Symptoms Are (Timing): Still Present Location Of Pain/Discomfort: Diffuse, Other (Left flank) Radiation Of Pain To:: Other (Anterior abdomen) Quality Of Discomfort: "Pain" Associated Symptoms: Vomiting. denies: Fever, Chills, Constipation Recent travel outside of the [place]: No Additional History Per: Patient Abnormal Vaginal Bleeding: No Past Medical History Reviewed: Historical Data, Nursing Documentation, Vital Signs Vital Signs: Last Vital Signs Temp 98.3 F 05/08/17 06:14 Pulse 130 H 05/08/17 06:14 Resp 20 05/08/17 06:14 BP 140/81 05/08/17 06:14 Pulse Ox 97 05/08/17 07:30 - Medical History PMH: Anxiety, Gastritis, HTN, Hypercholesterolemia, Hypothyroidism Surgical History: No Surg Hx - [facility] Procedures GROUP PSYCHOTHERAPY (05/26/15) MEDICATION MANAGEMENT (05/26/15) Family History: States: Unknown Family Hx - Social History Hx Alcohol Use: No Hx Substance Use: No - Immunization History Hx Tetanus Toxoid Vaccination: No Hx Influenza Vaccination: No Hx Pneumococcal Vaccination: No Review Of Systems Constitutional: Negative for: Fever, Chills Cardiovascular: Negative for: Chest Pain Respiratory: Negative for: Cough, Shortness of Breath Gastrointestinal: Positive for: Vomiting, Abdominal Pain. Negative for: Nausea , Constipation Genitourinary: Negative for: Hematuria, Vaginal Discharge, Vaginal Bleeding Musculoskeletal: Positive for: Back Pain Skin: Negative for: Rash Neurological: Negative for: Weakness, Numbness Physical Exam - Physical Exam Appears: Non-toxic, No Acute Distress Skin: Normal Color, Warm, Dry Head: Atraumatic, Normacephalic Nose: No Discharge Oral Mucosa: Moist Neck: Normal ROM, Supple Chest: Symmetrical Cardiovascular: Rhythm Regular, No Murmur Respiratory: Normal Breath Sounds, No Rales, No Rhonchi, No Wheezing Gastrointestinal/Abdominal: Soft, Tenderness (Mild diffuse, left flank ) Back: Other (Left flank tenderness) Extremity: Normal ROM, No Pedal Edema, No Calf Tenderness, No Deformity, No Swelling Neurological/Psych: Oriented x3, Normal Speech, Normal Cognition Gait: Steady ED Course And Treatment - Laboratory Results Result Diagrams: 05/08/17 06:59 05/08/17 06:59 O2 Sat by Pulse Oximetry: 97 (On RA) Pulse Ox Interpretation: Normal Medical Decision Making Medical Decision Making: Impression : left flank, abdominal pain Plan: * Blood work * Iv fluids * Toradol 30 mg IVP * UA Disposition Doctor Will See Patient In The: Office Counseled Patient/Family Regarding: Studies Performed, Diagnosis, Need For Followup - Disposition Disposition: HOME/ ROUTINE Disposition Time: 09:30 Condition: STABLE Additional Instructions: Must see your doctor 3-5 days. Check blood sugars regularly. Prescriptions: Sulfamethoxazole/Trimethoprim [Bactrim Ds Tablet] 1 each PO BID 10 Days #20 tablet Forms: [employer] ([place]ian) - Clinical Impression Clinical Impression: UTI (urinary tract infection), Hyperglycemia due to type 2 diabetes mellitus - Scribe Statement The provider has reviewed the documentation as recorded by the Scribe Jose Francisco Nichols All medical record entries made by the Scribe were at my direction and personally dictated by me. I have reviewed the chart and agree that the record accurately reflects my personal performance of the history, physical exam, medical decision making, and the department course for this patient. I have also personally directed, reviewed, and agree with the discharge instructions and disposition.
[2017-05-08 07:50] LABS: ALB/GLOB RATIO 1.1 (1.0-2.1); ALKALINE PHOSPHATASE 110 U/L (38-126); ALT/SGPT 32 U/L (9-52); AST/SGOT 24 U/L (14-36); BILIRUBIN,TOTAL 1.2 mg/dL (0.2-1.3); BLOOD UREA NITROGEN 17 mg/dL (7-17); CALCIUM 8.8 mg/dl (8.6-10.4); CARBON DIOXIDE 26 mmol/L (22-30); CHLORIDE 93 mmol/L (98-107); GFR AFRICAN-AMERICAN > 60; POTASSIUM 3.9 mmol/L (3.6-5.2); SODIUM 132 mmol/L (132-148); TOTAL PROTEIN 8.6 g/dL (6.3-8.3)
[2017-05-08 08:00] LABS: RBC URINE 17 /hpf (0-3); URINE BACTERIA MOD (<OCC); URINE BILIRUBIN NEGATIVE (NEGATIVE); URINE BLOOD NEGATIVE (NEGATIVE); URINE GLUCOSE (UA) 3+ mg/dL (Normal); URINE KETONE TRACE mg/dL (NEGATIVE); URINE LEUKOCYTE ESTERASE 1+ Leu/uL (Negative); URINE PROTEIN NEGATIVE (NEGATIVE); URINE UROBILINOGEN NORMAL mg/dL (0.2-1.0); WBC URINE 108 /hpf (0-5)
[2017-05-08 08:01] LABS: URINE COLOR YELLOW (YELLOW)
[2017-05-08 08:11] LABS: GLUCOSE,RANDOM 424 mg/dL (65-105)
[2017-05-08] MEDS ORDERED: (Novolin R) Insulin Human Regular 100 units/ml vial SC STA (08:12)
[2017-05-08] MEDS ORDERED: cefTRIAXone IV 1 gm in Dextros 50 ML IVPB ONE ×2 (08:22→08:34)
[2017-05-08] MEDS ORDERED: (Novolin R) Insulin Human Regular 100 units/ml vial ONE (08:34)
[2017-05-08 09:27] VITALS: BP 102/69; PULSE 95; RESP 18; TEMP 98.6
== END 2017-05-08 09:28 | disposition home or self-care (01) ==
LOC: C.ER 06:07
DX: E11.65 Type 2 diabetes mellitus with hyperglycemia (principal); N39.0 Urinary tract infection, site not specified; I10 Essential (primary) hypertension; E78.00 Pure hypercholesterolemia, unspecified
CPT/HCPCS: 80053; 81001; 82948; 85025; 96361; 96374; 99285; J0696; J1885; J7040

== ENCOUNTER 2017-11-09 09:19 | Emergency (ER) | payer OTHER ==
[2017-11-09 09:35] VITALS: BMI 23.3
[2017-11-09 09:38] VITALS: RESP 18
[2017-11-09] MEDS ORDERED: Sodium Chloride 0.9% 1,000 ML IV ONE (09:42)
[2017-11-09] MEDS ORDERED: Sodium Chloride 0.9% 1,000 ML ONE (09:58)
--- NOTE | 2017-11-09 10:08 | C.PDOC ---
History Of Present Illness 47 year old female presents to ED for evaluation of headache, body aches, nausea , and abdominal pain for the last 2-3 days. Patient also reports 4 episodes of vomiting last night. Notes last bowel movement was 2 days ago. Notes she developed a sore throat today. She reports taking Nyquil with mild improvement. Denies diarrhea, dysuria, hematuria, chest pain, cough, or shortness of breath. Time Seen by Provider: 11/09/17 09:33 Chief Complaint (Nursing): Abdominal Pain History Per: Patient History/Exam Limitations: no limitations Onset/Duration Of Symptoms: Days Current Symptoms Are (Timing): Still Present Location Of Pain/Discomfort: Diffuse Radiation Of Pain To:: None Quality Of Discomfort: "Pain" Associated Symptoms: Nausea, Vomiting. denies: Diarrhea, Urinary Symptoms Exacerbating Factors: None Alleviating Factors: None Last Bowel Movement: Days Ago (2) Recent travel outside of the [place]: No Additional History Per: Patient Abnormal Vaginal Bleeding: No Past Medical History Reviewed: Historical Data, Nursing Documentation, Vital Signs Vital Signs: Last Vital Signs Temp 99.2 F 11/09/17 11:05 Pulse 95 H 11/09/17 11:05 Resp 18 11/09/17 11:05 BP 126/74 11/09/17 11:05 Pulse Ox 96 11/09/17 11:05 - Medical History PMH: Anxiety, Gastritis, HTN, Hypercholesterolemia, Hypothyroidism - [facility] Procedures GROUP PSYCHOTHERAPY (05/26/15) MEDICATION MANAGEMENT (05/26/15) Family History: States: Unknown Family Hx - Social History Hx Alcohol Use: No Hx Substance Use: No - Immunization History Hx Tetanus Toxoid Vaccination: No Hx Influenza Vaccination: No Hx Pneumococcal Vaccination: No Review Of Systems Constitutional: Positive for: Other (body aches). Negative for: Fever, Chills ENT: Positive for: Throat Pain Cardiovascular: Negative for: Chest Pain Respiratory: Negative for: Cough, Shortness of Breath Gastrointestinal: Positive for: Nausea, Vomiting, Abdominal Pain. Negative for : Diarrhea, Hematemesis Genitourinary: Negative for: Dysuria, Frequency, Hematuria Musculoskeletal: Negative for: Back Pain Neurological: Positive for: Headache. Negative for: Dizziness Physical Exam - Physical Exam Appears: Non-toxic, No Acute Distress Skin: Normal Color, Warm, Dry Head: Atraumatic, Normacephalic Eye(s): bilateral: Normal Inspection, EOMI Ear(s): Bilateral: Normal Nose: Normal Oral Mucosa: Moist Tongue: Normal Appearing Lips: Normal Appearing Throat: Normal, No Erythema, No Exudate, No Drooling Neck: Normal ROM, Supple Cardiovascular: Rhythm Regular, No Murmur Respiratory: Normal Breath Sounds, No Rales, No Rhonchi, No Wheezing Gastrointestinal/Abdominal: Soft, No Tenderness, No Guarding, No Rebound Back: No CVA Tenderness Extremity: Normal ROM, No Tenderness, No Deformity, No Swelling Neurological/Psych: Oriented x3, Normal Speech Gait: Steady ED Course And Treatment - Laboratory Results Result Diagrams: 11/09/17 10:00 11/09/17 10:00 Lab Interpretation: No Acute Changes O2 Sat by Pulse Oximetry: 98 (RA) Pulse Ox Interpretation: Normal Medical Decision Making Medical Decision Making: Impression: 47 year old female with headache, nausea, vomiting, and diffuse abdominal pain for the past 3 days. Plan: Blood work Urinalysis Obstructive series Reglan, IV fluids Labs reviewed. UA show nitrates. will treat with cipro PO. Xray shows fecal retention. Patient reevaluated has no fever and reports feeling better. She was able to tolerated PO. Patient stable for discharge. Rx given. Advise follow up with PCP Disposition Counseled Patient/Family Regarding: Diagnosis, Need For Followup, Rx Given - Disposition Referrals: Herman Luis MD [Medical Doctor] - Disposition: HOME/ ROUTINE Disposition Time: 10:59 Condition: STABLE Additional Instructions: Follow up with referral physician in 1-2 days without fail for further evaluation. Take medications as prescribed. Return to the emergency department at any time if symptoms persist or worsen. Prescriptions: Ciprofloxacin [Cipro] 1 tab PO BID #10 tab Docusate [Colace] 100 mg PO TID PRN #30 cap PRN Reason: Constipation Docusate Sodium [Fleet Sof-Lax] 100 mg PO TID #30 tab Magnesium Citrate [Citrate of Mag] 300 ml PO ONCE PRN #1 bottle PRN Reason: Constipation Ondansetron ODT [Zofran ODT] 1 odt PO BID PRN #6 odt PRN Reason: Nausea/Vomiting Instructions: Constipation, Adult (DC), Urinary Tract Infection, Adult (DC) Forms: [facility] [employer] ([place]) - POA Present On Arrival: None - Clinical Impression Clinical Impression: Constipation, UTI (urinary tract infection) - PA / ROLL GRINDER / Resident Statement MD/DO has reviewed & agrees with the documentation as recorded. - Scribe Statement The provider has reviewed the documentation as recorded by the Laureibcaitlin Jernigan All medical record entries made by the Lawrence were at my direction and personally dictated by me. I have reviewed the chart and agree that the record accurately reflects my personal performance of the history, physical exam, medical decision making, and the department course for this patient. I have also personally directed, reviewed, and agree with the discharge instructions and disposition.
[2017-11-09 10:27] LABS: BASO % 0.2 % (0.0-2.0); EOS % 0.1 % (0.0-4.0); LYMPH # 1.2 K/uL (1.0-4.3); LYMPH % 10.4 % (20.0-40.0); MEAN CELL VOLUME 84.5 fL (81.0-99.0); MEAN CORPUSCULAR HEMOGLOBIN 29.1 pg (27.0-31.0); MEAN CORPUSCULAR HGB CONC 34.5 g/dL (33.0-37.0); MEAN PLATELET VOLUME 8.1 fL (7.2-11.7); MONO # 0.9 K/uL (0.0-0.8); MONO % 8.1 % (0.0-10.0); NEUT # 9.2 K/uL (1.8-7.0); NEUT % 81.2 % (50.0-75.0); NRBC % 0.1 % (0.0-2.0); RBC 4.12 Mil/uL (3.80-5.20); RED CELL DISTRIBUTION WIDTH 12.8 % (11.5-14.5); WHITE BLOOD COUNT 11.4 K/uL (4.8-10.8)
[2017-11-09 10:37] LABS: ALBUMIN 4.5 g/dL (3.5-5.0); ALT/SGPT 21 U/L (9-52); AST/SGOT 17 U/L (14-36); BLOOD UREA NITROGEN 15 mg/dL (7-17); CALCIUM 9.4 mg/dl (8.6-10.4); GFR AFRICAN-AMERICAN > 60; GFR NON-AFRICAN AMERICAN > 60; LIPASE 72 U/L (23-300)
[2017-11-09 10:49] LABS: SQUAMOUS EPITHIAL 9 /hpf (0-5); URINE BACTERIA MANY (<OCC); URINE BILIRUBIN NEGATIVE (NEGATIVE); URINE BLOOD 2+ (NEGATIVE); URINE CLARITY Hazy (Clear); URINE COLOR Yellow (YELLOW); URINE GLUCOSE (UA) 3+ mg/dL (Normal); URINE LEUKOCYTE ESTERASE 3+ Leu/uL (Negative); URINE PROTEIN 1+ mg/dL (NEGATIVE); URINE UROBILINOGEN NORMAL mg/dL (0.2-1.0)
[2017-11-09 11:05] VITALS: BP 126/74; PULSE 95; TEMP 99.2
[2017-11-09 11:54] VITALS: O2SAT 98
--- NOTE | 2017-11-09 13:40 | RAD ---
PROCEDURE: Radiographs of the chest and abdomen (obstructive series) HISTORY: abd pain COMPARISON: No prior. TECHNIQUE: AP radiograph of the chest, with upright and supine radiographs of the abdomen. FINDINGS: CHEST: Lungs: Clear. Cardiovascular: Normal size heart. No pulmonary vascular congestion. Pleura: No pleural fluid. No pneumothorax. Other findings: None. ABDOMEN AND PELVIS: Bowel: Unremarkable bowel gas pattern. No evidence of mechanical obstruction. Free air: None. Bones: Unremarkable. Other findings: None. IMPRESSION: Unremarkable radiographs of chest and abdomen. No evidence of mechanical bowel obstruction.
== END 2017-11-09 11:14 | disposition home or self-care (01) ==
LOC: C.ER 09:19
DX: K59.00 Constipation, unspecified (principal); N39.0 Urinary tract infection, site not specified
CPT/HCPCS: 74022; 80053; 81001; 83690; 85025; 96361; 96374; 99285; J2765; J7030

== ENCOUNTER 2017-12-12 11:30 | Inpatient (IN) | payer OTHER ==
[2017-12-12 11:31] VITALS: BMI 23.3
[2017-12-12] MEDS ORDERED: Sodium Chloride 0.9% 1,000 ML IV ONE ×2 (11:51→12:33)
--- NOTE | 2017-12-12 12:12 | C.PDOC ---
History Of Present Illness 47yo female with history of hypertension, gastritis, remote history of pyelonephritis, comes to ER for evaluation of nausea, vomiting and diarrhea with multiple episodes of vomiting. She denies any fever, chest pain or shortness of breath. She offers no other medical complaints. Time Seen by Provider: 12/12/17 11:44 Chief Complaint (Nursing): Abdominal Pain History Per: Patient History/Exam Limitations: no limitations Onset/Duration Of Symptoms: Days Current Symptoms Are (Timing): Still Present Location Of Pain/Discomfort: Diffuse Associated Symptoms: Chills, Nausea, Vomiting, Diarrhea. denies: Fever, Back Pain, Chest Pain, Constipation, Urinary Symptoms Additional History Per: Patient Abnormal Vaginal Bleeding: No Past Medical History Reviewed: Historical Data, Nursing Documentation, Vital Signs Vital Signs: Last Vital Signs Temp 101.8 F H 12/12/17 14:46 Pulse 136 H 12/12/17 14:46 Resp 22 12/12/17 14:46 BP 109/54 L 12/12/17 14:46 Pulse Ox 99 12/12/17 15:15 - Medical History PMH: Anxiety, Gastritis, HTN, Hypercholesterolemia, Hypothyroidism Surgical History: No Surg Hx - [facility] Procedures GROUP PSYCHOTHERAPY (05/26/15) MEDICATION MANAGEMENT (05/26/15) Family History: States: Unknown Family Hx - Social History Hx Alcohol Use: No Hx Substance Use: No - Immunization History Hx Tetanus Toxoid Vaccination: No Hx Influenza Vaccination: No Hx Pneumococcal Vaccination: No Review Of Systems Except As Marked, All Systems Reviewed And Found Negative. Constitutional: Positive for: Chills. Negative for: Fever Cardiovascular: Negative for: Chest Pain Respiratory: Negative for: Shortness of Breath Gastrointestinal: Positive for: Nausea, Vomiting, Abdominal Pain, Diarrhea. Negative for: Constipation Genitourinary: Negative for: Dysuria, Frequency, Hematuria Musculoskeletal: Negative for: Back Pain Neurological: Negative for: Weakness, Numbness Physical Exam - Physical Exam Appears: Non-toxic, No Acute Distress Skin: Warm, Dry Head: Atraumatic, Normacephalic Eye(s): bilateral: Normal Inspection Neck: Normal ROM, Supple Chest: Symmetrical Cardiovascular: Rhythm Regular (+ tachycardia) Respiratory: Normal Breath Sounds Gastrointestinal/Abdominal: Soft, Tenderness (left flank tenderness), No Mass, No Guarding, No Rebound Back: CVA Tenderness (left) Extremity: Normal ROM, No Pedal Edema Neurological/Psych: Oriented x3 ED Course And Treatment - Laboratory Results Result Diagrams: 12/12/17 12:12 12/12/17 12:12 O2 Sat by Pulse Oximetry: 99 (RA) Pulse Ox Interpretation: Normal Progress Note: Labs, CXR, EKG, Urinalysis ordered. Patient given tylenol and IV fluids Critical Care Time - Critical Care Note Total Time (in mins): 45 Documented critical care: time excludes all time spent performing seperately billable procedures. Medical Decision Making Medical Decision Making: suspect sesppsi ho of pyelo - pt tachy on arrival. labs imaging pending la 7.5, code sepsis initiated. ivf antibiotics given. b/p normotensive. case discussed with icu and dr saha, accpeted icu. ct pending. Disposition - Disposition Disposition: HOSPITALIZED Disposition Time: 02:00 Condition: CRITICAL - Clinical Impression Clinical Impression: Sepsis, Pyelonephritis - Scribe Statement The provider has reviewed the documentation as recorded by the Lawrence Zaman Provider Attestation: All medical record entries made by the Lawrence were at my direction and personally dictated by me. I have reviewed the chart and agree that the record accurately reflects my personal performance of the history, physical exam, medical decision making, and the department course for this patient. I have also personally directed, reviewed, and agree with the discharge instructions and disposition. Decision To Admit - Pt Status Changed To: Hospital Disposition Of: Inpatient - Admit Certification Admit to Inpatient:: After my assessment, the patient will require hospitalization for at least two midnights. This is because of the severity of symptoms shown, intensity of services needed, and/or the medical risk in this patient being treated as an outpatient. - InPatient: Physician Admission Certification:: needs icu. - . Bed Request Type: Regular Admitting Physician: Darlyn Saha Patient Diagnosis: Sepsis, Pyelonephritis, UTI (urinary tract infection), Lactic acidosis
[2017-12-12 12:26] LABS: BASO % 0.2 % (0.0-2.0); HEMOGLOBIN 12.4 g/dL (11.0-16.0); LYMPH # 0.3 K/uL (1.0-4.3); LYMPH % 2.4 % (20.0-40.0); MEAN CELL VOLUME 86.1 fL (81.0-99.0); MEAN CORPUSCULAR HGB CONC 33.7 g/dL (33.0-37.0); MEAN PLATELET VOLUME 8.6 fL (7.2-11.7); MONO # 0.8 K/uL (0.0-0.8); MONO % 5.4 % (0.0-10.0); NEUT # 13.3 K/uL (1.8-7.0); PLATELET COUNT 260 K/uL (130-400); RBC 4.26 Mil/uL (3.80-5.20); RED CELL DISTRIBUTION WIDTH 12.9 % (11.5-14.5); WHITE BLOOD COUNT 14.5 K/uL (4.8-10.8)
[2017-12-12 12:37] LABS: INR 1.5
[2017-12-12] MEDS ORDERED: cefTRIAXone IV 1 gm in Dextros 50 ML IVPB ONE (12:43)
[2017-12-12] MEDS ORDERED: Sodium Chloride 0.9% 2,000 ML ONE (12:43)
[2017-12-12 12:48] LABS: VENOUS BLOOD GAS PCO2 42 mmHg (40-60); VENOUS BLOOD GAS PO2 21 mm/Hg (30-55); VENOUS BLOOD PH 7.32 (7.32-7.43)
[2017-12-12 12:52] LABS: VENOUS BLOOD GAS BASE EXCESS -4.3 mmol/L (0.0-2.0)
[2017-12-12 12:58] LABS: BANDS 15 % (0-2); BLOOD UREA NITROGEN 18 mg/dL (7-17); GFR AFRICAN-AMERICAN 39; GFR NON-AFRICAN AMERICAN 32; LYMPHOCYTE 5 % (20-40); MONOCYTE 6 % (0-10); NEUTROPHIL 74 % (50-75); PLATELET ESTIMATE NORMAL (NORMAL); TOTAL CELLS COUNTED 100
[2017-12-12 12:59] LABS: ALB/GLOB RATIO 1.1 (1.0-2.1); ALBUMIN 4.5 g/dL (3.5-5.0); ALT/SGPT 16 U/L (9-52); AST/SGOT 27 U/L (14-36); CALCIUM 9.5 mg/dl (8.6-10.4)
[2017-12-12 13:00] LABS: LIPASE 42 U/L (23-300)
--- NOTE | 2017-12-12 13:00 | RAD ---
Date of service: 12/12/2017 PROCEDURE: CHEST RADIOGRAPH, 1 VIEW HISTORY: chest pain COMPARISON: None available. FINDINGS: LUNGS: Clear. PLEURA: No pneumothorax or pleural fluid seen. CARDIOVASCULAR: Normal. OSSEOUS STRUCTURES: No significant abnormalities. VISUALIZED UPPER ABDOMEN: Normal. OTHER FINDINGS: None. IMPRESSION: No active disease.
[2017-12-12 13:07] LABS: HCG,QUALITATIVE URINE NEGATIVE (NEGATIVE)
[2017-12-12 13:12] LABS: SQUAMOUS EPITHIAL 5 /hpf (0-5); URINE BACTERIA OCC (<OCC); URINE BILIRUBIN NEGATIVE (NEGATIVE); URINE BLOOD 2+ (NEGATIVE); URINE CLARITY Hazy (Clear); URINE COLOR Yellow (YELLOW); URINE GLUCOSE (UA) 3+ mg/dL (Normal); URINE LEUKOCYTE ESTERASE 2+ Leu/uL (Negative); URINE PROTEIN 2+ mg/dL (NEGATIVE); URINE UROBILINOGEN NORMAL mg/dL (0.2-1.0)
[2017-12-12 13:32] LABS: BARBITURATES, UR NEGATIVE (NEGATIVE); BENZODIAZEPINES, UR NEGATIVE (NEGATIVE); OPIATES, UR NEGATIVE (NEGATIVE); PHENCYCLIDINE, UR NEGATIVE (NEGATIVE)
[2017-12-12] MEDS ORDERED: (Novolin R) Insulin Human Regular 100 units/ml vial IV STA (14:17)
[2017-12-12] MEDS ORDERED: (Novolin R) Insulin Human Regular 100 units/ml vial ONE (14:24)
--- NOTE | 2017-12-12 15:00 | CP.PCM.HP ---
Past Patient History - Infectious Disease Hx of Infectious Diseases: None - Past Social History Smoking Status: Never Smoked - CARDIAC Hx Hypercholesterolemia: Yes Hx Hypertension: Yes - ENDOCRINE/METABOLIC Hx Hypothyroidism: Yes - MUSCULOSKELETAL/RHEUMATOLOGICAL Hx Falls: No - GASTROINTESTINAL Hx Gastritis: Yes - PSYCHIATRIC Hx Anxiety: Yes Hx Substance Use: No - SURGICAL HISTORY Hx Surgeries: Yes Other/Comment: right eye cataract surgery - ANESTHESIA Hx Anesthesia: Yes Hx Anesthesia Reactions: No Hx Malignant Hyperthermia: No Meds Allergies/Adverse Reactions: Allergies Allergy/AdvReac Type Severity Reaction Status Date / Time No Known Allergies Allergy Verified 12/12/17 11:36 Physical Exam - Constitutional Appears: Well - Head Exam Head Exam: ATRAUMATIC, NORMAL INSPECTION, NORMOCEPHALIC - Eye Exam Eye Exam: EOMI, Normal appearance, PERRL Pupil Exam: NORMAL ACCOMODATION, PERRL - ENT Exam ENT Exam: Mucous Membranes Moist, Normal Exam - Neck Exam Neck exam: Positive for: Normal Inspection - Respiratory Exam Respiratory Exam: Decreased Breath Sounds - Cardiovascular Exam Cardiovascular Exam: REGULAR RHYTHM, +S1, +S2 - GI/Abdominal Exam GI & Abdominal Exam: Diminished Bowel Sounds, Soft - Rectal Exam Rectal Exam: Deferred Results - Vital Signs Recent Vital Signs: Last Vital Signs Temp 101.8 F H 12/12/17 14:46 Pulse 136 H 12/12/17 14:46 Resp 22 12/12/17 14:46 BP 109/54 L 12/12/17 14:46 Pulse Ox 96 12/12/17 14:46 - Labs Result Diagrams: 12/12/17 12:12 12/12/17 12:12 Labs: Laboratory Results - last 24 hr 12/12/17 12/12/17 12/12/17 12:10 12:12 12:12 WBC 14.5 H RBC 4.26 Hgb 12.4 Hct 36.7 MCV 86.1 MCH 29.0 MCHC 33.7 RDW 12.9 Plt Count 260 MPV 8.6 Neut % (Auto) 92.0 H Lymph % (Auto) 2.4 L [place] % (Auto) 5.4 Eos % (Auto) 0.0 Baso % (Auto) 0.2 Neut # (Auto) 13.3 H Lymph # (Auto) 0.3 L [place] # (Auto) 0.8 Eos # (Auto) 0.0 Baso # (Auto) 0.0 Neutrophils % (Manual) 74 Band Neutrophils % 15 H* Lymphocytes % (Manual) 5 L Monocytes % (Manual) 6 Platelet Estimate Normal RBC Morphology Normal PT 16.0 H INR 1.5 APTT 30 pO2 21 L VBG pH 7.32 VBG pCO2 42 VBG HCO3 19.7 VBG Total CO2 22.9 VBG O2 Sat (Calc) 37.4 L VBG Base Excess -4.3 L VBG Potassium 3.4 L Sodium 135.0 Chloride 92.0 L Glucose 528 H* D Lactate 7.5 H* FiO2 21.0 Crit Value Called To Dr coronel Crit Value Called By [facility] Crit Value Read Back Y Blood Gas Notified Time 1225 Potassium Carbon Dioxide Anion Gap BUN Creatinine Est GFR ( Amer) Est GFR (Non-Af Amer) POC Glucose (mg/dL) Random Glucose Calcium Total Bilirubin AST ALT Alkaline Phosphatase Troponin I Total Protein Albumin Globulin Albumin/Globulin Ratio Lipase Venous Blood Potassium 3.4 L Urine Color Urine Clarity Urine pH Ur Specific [place] Urine Protein Urine Glucose (UA) Urine Ketones Urine Blood Urine Nitrate Urine Bilirubin Urine Urobilinogen Ur Leukocyte Esterase Urine WBC (Auto) Urine RBC (Auto) Ur Squamous Epith Cells Urine Bacteria Urine HCG, Qual Urine Opiates Screen Urine Methadone Screen Ur Barbiturates Screen Ur Phencyclidine Scrn Ur Amphetamines Screen U Benzodiazepines Scrn U Oth Cocaine Metabols U Cannabinoids Screen 12/12/17 12/12/17 12/12/17 12:12 12:59 12:59 WBC RBC Hgb Hct MCV MCH MCHC RDW Plt Count MPV Neut % (Auto) Lymph % (Auto) [place] % (Auto) Eos % (Auto) Baso % (Auto) Neut # (Auto) Lymph # (Auto) [place] # (Auto) Eos # (Auto) Baso # (Auto) Neutrophils % (Manual) Band Neutrophils % Lymphocytes % (Manual) Monocytes % (Manual) Platelet Estimate RBC Morphology PT INR APTT pO2 VBG pH VBG pCO2 VBG HCO3 VBG Total CO2 VBG O2 Sat (Calc) VBG Base Excess VBG Potassium Sodium 136 Chloride 91 L Glucose Lactate FiO2 Crit Value Called To Crit Value Called By Crit Value Read Back Blood Gas Notified Time Potassium 3.6 Carbon Dioxide 21 L Anion Gap 28 H BUN 18 H Creatinine 1.7 H Est GFR ( Amer) 39 Est GFR (Non-Af Amer) 32 POC Glucose (mg/dL) Random Glucose 539 H* D Calcium 9.5 Total Bilirubin 1.0 AST 27 ALT 16 Alkaline Phosphatase 96 Troponin I < 0.0120 Total Protein 8.7 H Albumin 4.5 Globulin 4.2 H Albumin/Globulin Ratio 1.1 Lipase 42 Venous Blood Potassium Urine Color Yellow Urine Clarity Hazy Urine pH 5.0 Ur Specific [place] 1.027 Urine Protein 2+ H Urine Glucose (UA) 3+ H Urine Ketones 1+ H Urine Blood 2+ H Urine Nitrate Negative Urine Bilirubin Negative Urine Urobilinogen Normal Ur Leukocyte Esterase 2+ H Urine WBC (Auto) 106 H Urine RBC (Auto) 8 H Ur Squamous Epith Cells 5 Urine Bacteria Occ H Urine HCG, Qual Negative Urine Opiates Screen Negative Urine Methadone Screen Negative Ur Barbiturates Screen Negative Ur Phencyclidine Scrn Negative Ur Amphetamines Screen Negative U Benzodiazepines Scrn Negative U Oth Cocaine Metabols Negative U Cannabinoids Screen Negative 12/12/17 14:08 WBC RBC Hgb Hct MCV MCH MCHC RDW Plt Count MPV Neut % (Auto) Lymph % (Auto) [place] % (Auto) Eos % (Auto) Baso % (Auto) Neut # (Auto) Lymph # (Auto) [place] # (Auto) Eos # (Auto) Baso # (Auto) Neutrophils % (Manual) Band Neutrophils % Lymphocytes % (Manual) Monocytes % (Manual) Platelet Estimate RBC Morphology PT INR APTT pO2 VBG pH VBG pCO2 VBG HCO3 VBG Total CO2 VBG O2 Sat (Calc) VBG Base Excess VBG Potassium Sodium Chloride Glucose Lactate FiO2 Crit Value Called To Crit Value Called By Crit Value Read Back Blood Gas Notified Time Potassium Carbon Dioxide Anion Gap BUN Creatinine Est GFR ( Amer) Est GFR (Non-Af Amer) POC Glucose (mg/dL) 451 H* Random Glucose Calcium Total Bilirubin AST ALT Alkaline Phosphatase Troponin I Total Protein Albumin Globulin Albumin/Globulin Ratio Lipase Venous Blood Potassium Urine Color Urine Clarity Urine pH Ur Specific [place] Urine Protein Urine Glucose (UA) Urine Ketones Urine Blood Urine Nitrate Urine Bilirubin Urine Urobilinogen Ur Leukocyte Esterase Urine WBC (Auto) Urine RBC (Auto) Ur Squamous Epith Cells Urine Bacteria Urine HCG, Qual Urine Opiates Screen Urine Methadone Screen Ur Barbiturates Screen Ur Phencyclidine Scrn Ur Amphetamines Screen U Benzodiazepines Scrn U Oth Cocaine Metabols U Cannabinoids Screen
--- NOTE | 2017-12-12 15:19 | CT ---
Date of service: 12/12/2017 PROCEDURE: CT Abdomen and Pelvis with Oral contrast. HISTORY: flank pain, left Left flank pain COMPARISON: Comparison made with prior CT scan abdomen pelvis 09/13/2016. TECHNIQUE: Contiguous axial images of the abdomen and pelvis. . Coronal and Sagittal reformats generated. This CT exam was performed using one or more of the following dose reduction techniques: Automated exposure control, adjustment of the mA and/or kV according to patient size, and/or use of iterative reconstruction technique. Radiation dose: Total exam DLP = 294.60 mGy-cm. This CT exam was performed using one or more of the following dose reduction techniques: Automated exposure control, adjustment of the mA and/or kV according to patient size, and/or use of iterative reconstruction technique. . FINDINGS: LOWER THORAX: Mild passive/dependent type atelectasis both lung bases left greater than right. There also appears be some scarring changes in the left lung base lingular region. LIVER: Liver remains enlarged measuring over 21 cm in CC dimension. No obvious hepatic mass or collection . Very mild fatty hepatic infiltration. GALLBLADDER AND BILE DUCTS: Gallbladder physiologically distended. No evidence of intraluminal gallbladder calculi. PANCREAS: Unremarkable. No mass. No ductal dilatation. SPLEEN: Unremarkable. No splenomegaly. ADRENALS: Unremarkable. KIDNEYS AND URETERS: Re- demonstrated is air within the left renal collecting system, etiology of which is unclear though could be secondary to recent instrumentation versus infection with gas-forming organism (emphysematous pyelonephritis. There has been a increase in the amount of perinephric infiltration and small amount of presumed perinephric fluid. There is a small approximately 3 mm calcification in the pelvis dorsal and nearly abutting the posterior margin of the urinary bladder which appears to be located near the expected location of the left ureteral orifice. It is unclear whether this is within the left UVJ. While there is no evidence of hydronephrosis, consider followup retrograde studies for further evaluation Right kidney unremarkable BLADDER: Urinary bladder is physiologically distended. No obvious intraluminal urinary bladder calculi. Correlation with urinalysis to exclude cystitis given the findings in the left kidney. REPRODUCTIVE: Unremarkable. Previously described prominent pelvic vessels about the left adnexum not appreciated on this exam due to the lack of circulating intravenous contrast. APPENDIX: Appendix unremarkable. BOWEL: Evaluation of the bowel limited due to the lack of oral and intravenous contrast material. PERITONEUM: Unremarkable. No fluid collection. No free air. Previously noted free fluid was present in the pelvis resolved. LYMPH NODES: Unremarkable. No enlarged lymph nodes. VASCULATURE: Unremarkable. No aortic aneurysm. BONES: No fracture or destructive lesion. OTHER FINDINGS: None. IMPRESSION: Re- demonstrated is air within the left renal collecting system with increased perinephric stranding and fluid . Findings could be secondary to emphysematous pyelonephritis. Clinical correlation with urinalysis. . No evidence of left-sided hydronephrosis or renal calculi. There is a small calcification in the pelvis dorsal and nearly abutting the posterior margin of the urinary bladder which appears to be located near the expected location of the left ureteral orifice. It is unclear whether this is within the left UVJ. While there is no evidence of hydronephrosis, consider followup retrograde studies for further evaluation Hepatomegaly.
[2017-12-12] MEDS: Sodium Chloride 0.9% 1,000 ML IV SCH ×2 (16:46→23:59)
[2017-12-12] MEDS: (Novolog) Insulin Aspart, Recombinant 100 u/ml 10 ml vial SC SCH ×2 (17:01→20:02)
--- NOTE | 2017-12-12 18:29 | CP.PCM.CON ---
<Fish Corona - Last Filed: 12/12/17 18:45> Meds Allergies/Adverse Reactions: Allergies Allergy/AdvReac Type Severity Reaction Status Date / Time No Known Allergies Allergy Verified 12/12/17 11:36 - Medications Medications: Current Medications Heparin Sodium (Porcine) (Heparin) 5,000 units SC Q12 [facility] Ceftriaxone Sodium 2 gm/ (Sodium Chloride) 100 mls @ 100 mls/hr IVPB DAILY [facility] PRN Reason: Protocol Sodium Chloride (Sodium Chloride 0.9%) 1,000 mls @ 125 mls/hr IV .Q8H [facility] Last Admin: 12/12/17 16:46 Dose: 125 mls/hr Insulin Aspart (Novolog) 0 unit SC Q4 [facility] PRN Reason: Protocol Last Admin: 12/12/17 17:01 Dose: 8 units Morphine Sulfate (Morphine) 2 mg IVP Q4 PRN PRN Reason: Pain, moderate (4-7) Last Admin: 12/12/17 16:45 Dose: 2 mg Ondansetron HCl (Zofran Inj) 4 mg IVP Q6 PRN PRN Reason: Nausea/Vomiting Last Admin: 12/12/17 16:54 Dose: 4 mg Results - Vital Signs Recent Vital Signs: Last Vital Signs Temp 100.5 F H 12/12/17 16:30 Pulse 131 H 12/12/17 17:21 Resp 30 H 12/12/17 17:21 BP 119/75 12/12/17 17:21 Pulse Ox 95 12/12/17 17:21 - Labs Result Diagrams: 12/12/17 12:12 12/12/17 12:12 Labs: Laboratory Results - last 24 hr 12/12/17 12/12/17 12/12/17 12:10 12:12 12:12 WBC 14.5 H RBC 4.26 Hgb 12.4 Hct 36.7 MCV 86.1 MCH 29.0 MCHC 33.7 RDW 12.9 Plt Count 260 MPV 8.6 Neut % (Auto) 92.0 H Lymph % (Auto) 2.4 L Clinch % (Auto) 5.4 Eos % (Auto) 0.0 Baso % (Auto) 0.2 Neut # (Auto) 13.3 H Lymph # (Auto) 0.3 L Clinch # (Auto) 0.8 Eos # (Auto) 0.0 Baso # (Auto) 0.0 Neutrophils % (Manual) 74 Band Neutrophils % 15 H* Lymphocytes % (Manual) 5 L Monocytes % (Manual) 6 Platelet Estimate Normal RBC Morphology Normal PT 16.0 H INR 1.5 APTT 30 pO2 21 L VBG pH 7.32 VBG pCO2 42 VBG HCO3 19.7 VBG Total CO2 22.9 VBG O2 Sat (Calc) 37.4 L VBG Base Excess -4.3 L VBG Potassium 3.4 L Sodium 135.0 Chloride 92.0 L Glucose 528 H* D Lactate 7.5 H* FiO2 21.0 Crit Value Called To Dr coronel Crit Value Called By [facility] Crit Value Read Back Y Blood Gas Notified Time 1225 Potassium Carbon Dioxide Anion Gap BUN Creatinine Est GFR ( Amer) Est GFR (Non-Af Amer) POC Glucose (mg/dL) Random Glucose Lactic Acid Calcium Total Bilirubin AST ALT Alkaline Phosphatase Troponin I Total Protein Albumin Globulin Albumin/Globulin Ratio Lipase Venous Blood Potassium 3.4 L Urine Color Urine Clarity Urine pH Ur Specific [place] Urine Protein Urine Glucose (UA) Urine Ketones Urine Blood Urine Nitrate Urine Bilirubin Urine Urobilinogen Ur Leukocyte Esterase Urine WBC (Auto) Urine RBC (Auto) Ur Squamous Epith Cells Urine Bacteria Urine HCG, Qual Urine Opiates Screen Urine Methadone Screen Ur Barbiturates Screen Ur Phencyclidine Scrn Ur Amphetamines Screen U Benzodiazepines Scrn U Oth Cocaine Metabols U Cannabinoids Screen 12/12/17 12/12/17 12/12/17 12:12 12:59 12:59 WBC RBC Hgb Hct MCV MCH MCHC RDW Plt Count MPV Neut % (Auto) Lymph % (Auto) Clinch % (Auto) Eos % (Auto) Baso % (Auto) Neut # (Auto) Lymph # (Auto) Clinch # (Auto) Eos # (Auto) Baso # (Auto) Neutrophils % (Manual) Band Neutrophils % Lymphocytes % (Manual) Monocytes % (Manual) Platelet Estimate RBC Morphology PT INR APTT pO2 VBG pH VBG pCO2 VBG HCO3 VBG Total CO2 VBG O2 Sat (Calc) VBG Base Excess VBG Potassium Sodium 136 Chloride 91 L Glucose Lactate FiO2 Crit Value Called To Crit Value Called By Crit Value Read Back Blood Gas Notified Time Potassium 3.6 Carbon Dioxide 21 L Anion Gap 28 H BUN 18 H Creatinine 1.7 H Est GFR ( Amer) 39 Est GFR (Non-Af Amer) 32 POC Glucose (mg/dL) Random Glucose 539 H* D Lactic Acid Calcium 9.5 Total Bilirubin 1.0 AST 27 ALT 16 Alkaline Phosphatase 96 Troponin I < 0.0120 Total Protein 8.7 H Albumin 4.5 Globulin 4.2 H Albumin/Globulin Ratio 1.1 Lipase 42 Venous Blood Potassium Urine Color Yellow Urine Clarity Hazy Urine pH 5.0 Ur Specific [place] 1.027 Urine Protein 2+ H Urine Glucose (UA) 3+ H Urine Ketones 1+ H Urine Blood 2+ H Urine Nitrate Negative Urine Bilirubin Negative Urine Urobilinogen Normal Ur Leukocyte Esterase 2+ H Urine WBC (Auto) 106 H Urine RBC (Auto) 8 H Ur Squamous Epith Cells 5 Urine Bacteria Occ H Urine HCG, Qual Negative Urine Opiates Screen Negative Urine Methadone Screen Negative Ur Barbiturates Screen Negative Ur Phencyclidine Scrn Negative Ur Amphetamines Screen Negative U Benzodiazepines Scrn Negative U Oth Cocaine Metabols Negative U Cannabinoids Screen Negative 12/12/17 12/12/17 12/12/17 14:08 15:04 16:05 WBC RBC Hgb Hct MCV MCH MCHC RDW Plt Count MPV Neut % (Auto) Lymph % (Auto) Clinch % (Auto) Eos % (Auto) Baso % (Auto) Neut # (Auto) Lymph # (Auto) Clinch # (Auto) Eos # (Auto) Baso # (Auto) Neutrophils % (Manual) Band Neutrophils % Lymphocytes % (Manual) Monocytes % (Manual) Platelet Estimate RBC Morphology PT INR APTT pO2 VBG pH VBG pCO2 VBG HCO3 VBG Total CO2 VBG O2 Sat (Calc) VBG Base Excess VBG Potassium Sodium Chloride Glucose Lactate FiO2 Crit Value Called To Crit Value Called By Crit Value Read Back Blood Gas Notified Time Potassium Carbon Dioxide Anion Gap BUN Creatinine Est GFR ( Amer) Est GFR (Non-Af Amer) POC Glucose (mg/dL) 451 H* 346 H Random Glucose Lactic Acid 3.8 H Calcium Total Bilirubin AST ALT Alkaline Phosphatase Troponin I Total Protein Albumin Globulin Albumin/Globulin Ratio Lipase Venous Blood Potassium Urine Color Urine Clarity Urine pH Ur Specific [place] Urine Protein Urine Glucose (UA) Urine Ketones Urine Blood Urine Nitrate Urine Bilirubin Urine Urobilinogen Ur Leukocyte Esterase Urine WBC (Auto) Urine RBC (Auto) Ur Squamous Epith Cells Urine Bacteria Urine HCG, Qual Urine Opiates Screen Urine Methadone Screen Ur Barbiturates Screen Ur Phencyclidine Scrn Ur Amphetamines Screen U Benzodiazepines Scrn U Oth Cocaine Metabols U Cannabinoids Screen Attending/Attestation - Attestation I have personally seen and examined this patient.: Yes I have fully participated in the care of the patient.: Yes I have reviewed all pertinent clinical information: Yes Notes (Text): 12/12/17 18:38 I have seen and examined the patient. Medical records, lab studies, and imaging were reviewed by me and a management plan was formulated on multidisciplinary rounds with resident Dr. Mejia. I agree with their documented assessment and plan. 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 Started on broad spectrum abx, Zosyn and IV fluids. Urology - Dr. Cruz, consulted for possible nephrectomy, percutaneous drainage or stenting. Critical Care Time 35 minutes. Multi-disciplinary rounds were performed with house staff, nursing, speech therapy, respiratory therapy, pharmacy and nutrition with integrated input from the primary team/attending and other consulting services. The documented time is cumulative and includes review of patient data/exams/labs/chart review and examination of the patient on rounds and throughout the day; time is exclusive of any procedures or teaching time. 12/12/17 18:46 <Conchita Mejia - Last Filed: 12/12/17 19:22> History of Present Illness - History of Present Illness History of Present Illness: 47 yo F w/ PMHx of uncontrolled DM2, emphysematous pyelonephritis, recurrent UTIs, anxiety and depression presents to the ED with complaints of nausea/ vomiting/diarrhea/abdominalpain/pelvic pain-L>R. Pt denies chest pain, SOB, recent illness. Review of Systems - Constitutional Constitutional: absent: Fever - Cardiovascular Cardiovascular: absent: Chest Pain - Respiratory Respiratory: absent: Cough, Dyspnea - Gastrointestinal Gastrointestinal: Abdominal Pain, Diarrhea, Nausea, Vomiting - Genitourinary Genitourinary: Flank Pain. absent: Change in Urinary Stream - Reproductive: Female Reproductive:Female: Pelvic Pain - Musculoskeletal Musculoskeletal: absent: Myalgias Past Patient History - Infectious Disease Hx of Infectious Diseases: None - Past Medical History & Family History Past Medical History?: Yes - Past Social History Smoking Status: Never Smoked - CARDIAC Hx Hypercholesterolemia: Yes Hx Hypertension: Yes - HEENT Hx Cataracts: Yes (both eyes) - ENDOCRINE/METABOLIC Hx Diabetes Mellitus Type 2: Yes Hx Hypothyroidism: Yes - MUSCULOSKELETAL/RHEUMATOLOGICAL Hx Falls: No - GASTROINTESTINAL Hx Gastritis: Yes - PSYCHIATRIC Hx Substance Use: No - SURGICAL HISTORY Hx Surgeries: Yes Other/Comment: right eye cataract surgery - ANESTHESIA Hx Anesthesia: Yes Hx Anesthesia Reactions: No Hx Malignant Hyperthermia: No Meds - Medications Medications: Current Medications Heparin Sodium (Porcine) (Heparin) 5,000 units SC Q12 [facility] Ceftriaxone Sodium 2 gm/ (Sodium Chloride) 100 mls @ 100 mls/hr IVPB DAILY [facility] PRN Reason: Protocol Sodium Chloride (Sodium Chloride 0.9%) 1,000 mls @ 125 mls/hr IV .Q8H [facility] Last Admin: 12/12/17 16:46 Dose: 125 mls/hr Insulin Aspart (Novolog) 0 unit SC Q4 [facility] PRN Reason: Protocol Last Admin: 12/12/17 17:01 Dose: 8 units Morphine Sulfate (Morphine) 2 mg IVP Q4 PRN PRN Reason: Pain, moderate (4-7) Last Admin: 12/12/17 16:45 Dose: 2 mg Ondansetron HCl (Zofran Inj) 4 mg IVP Q6 PRN PRN Reason: Nausea/Vomiting Last Admin: 12/12/17 16:54 Dose: 4 mg Physical Exam - Head Exam Head Exam: ATRAUMATIC, NORMAL INSPECTION, NORMOCEPHALIC - Eye Exam Eye Exam: EOMI - ENT Exam ENT Exam: Mucous Membranes Moist - Respiratory Exam Respiratory Exam: Clear to Auscultation Bilateral, NORMAL BREATHING PATTERN - Cardiovascular Exam Cardiovascular Exam: REGULAR RHYTHM - GI/Abdominal Exam GI & Abdominal Exam: Normal Bowel Sounds, Soft, Tenderness (SIENA/LL quadrant) - Extremities Exam Extremities exam: Positive for: normal inspection - Back Exam Back exam: CVA tenderness (L), NORMAL INSPECTION - Neurological Exam Neurological exam: Alert, Oriented x3 - Psychiatric Exam Psychiatric exam: Normal Mood Results - Vital Signs Recent Vital Signs: Last Vital Signs Temp 100.5 F H 12/12/17 16:30 Pulse 131 H 12/12/17 17:21 Resp 30 H 12/12/17 17:21 BP 119/75 12/12/17 17:21 Pulse Ox 95 12/12/17 17:21 - Labs Result Diagrams: 12/12/17 12:12 12/12/17 12:12 Labs: Laboratory Results - last 24 hr 12/12/17 12/12/17 12/12/17 12:10 12:12 12:12 WBC 14.5 H RBC 4.26 Hgb 12.4 Hct 36.7 MCV 86.1 MCH 29.0 MCHC 33.7 RDW 12.9 Plt Count 260 MPV 8.6 Neut % (Auto) 92.0 H Lymph % (Auto) 2.4 L Clinch % (Auto) 5.4 Eos % (Auto) 0.0 Baso % (Auto) 0.2 Neut # (Auto) 13.3 H Lymph # (Auto) 0.3 L Clinch # (Auto) 0.8 Eos # (Auto) 0.0 Baso # (Auto) 0.0 Neutrophils % (Manual) 74 Band Neutrophils % 15 H* Lymphocytes % (Manual) 5 L Monocytes % (Manual) 6 Platelet Estimate Normal RBC Morphology Normal PT 16.0 H INR 1.5 APTT 30 pO2 21 L VBG pH 7.32 VBG pCO2 42 VBG HCO3 19.7 VBG Total CO2 22.9 VBG O2 Sat (Calc) 37.4 L VBG Base Excess -4.3 L VBG Potassium 3.4 L Sodium 135.0 Chloride 92.0 L Glucose 528 H* D Lactate 7.5 H* FiO2 21.0 Crit Value Called To Dr coronel Crit Value Called By [facility] Crit Value Read Back Y Blood Gas Notified Time 1225 Potassium Carbon Dioxide Anion Gap BUN Creatinine Est GFR ( Amer) Est GFR (Non-Af Amer) POC Glucose (mg/dL) Random Glucose Lactic Acid Calcium Total Bilirubin AST ALT Alkaline Phosphatase Troponin I Total Protein Albumin Globulin Albumin/Globulin Ratio Lipase Venous Blood Potassium 3.4 L Urine Color Urine Clarity Urine pH Ur Specific [place] Urine Protein Urine Glucose (UA) Urine Ketones Urine Blood Urine Nitrate Urine Bilirubin Urine Urobilinogen Ur Leukocyte Esterase Urine WBC (Auto) Urine RBC (Auto) Ur Squamous Epith Cells Urine Bacteria Urine HCG, Qual Urine Opiates Screen Urine Methadone Screen Ur Barbiturates Screen Ur Phencyclidine Scrn Ur Amphetamines Screen U Benzodiazepines Scrn U Oth Cocaine Metabols U Cannabinoids Screen 12/12/17 12/12/17 12/12/17 12:12 12:59 12:59 WBC RBC Hgb Hct MCV MCH MCHC RDW Plt Count MPV Neut % (Auto) Lymph % (Auto) Clinch % (Auto) Eos % (Auto) Baso % (Auto) Neut # (Auto) Lymph # (Auto) Clinch # (Auto) Eos # (Auto) Baso # (Auto) Neutrophils % (Manual) Band Neutrophils % Lymphocytes % (Manual) Monocytes % (Manual) Platelet Estimate RBC Morphology PT INR APTT pO2 VBG pH VBG pCO2 VBG HCO3 VBG Total CO2 VBG O2 Sat (Calc) VBG Base Excess VBG Potassium Sodium 136 Chloride 91 L Glucose Lactate FiO2 Crit Value Called To Crit Value Called By Crit Value Read Back Blood Gas Notified Time Potassium 3.6 Carbon Dioxide 21 L Anion Gap 28 H BUN 18 H Creatinine 1.7 H Est GFR ( Amer) 39 Est GFR (Non-Af Amer) 32 POC Glucose (mg/dL) Random Glucose 539 H* D Lactic Acid Calcium 9.5 Total Bilirubin 1.0 AST 27 ALT 16 Alkaline Phosphatase 96 Troponin I < 0.0120 Total Protein 8.7 H Albumin 4.5 Globulin 4.2 H Albumin/Globulin Ratio 1.1 Lipase 42 Venous Blood Potassium Urine Color Yellow Urine Clarity Hazy Urine pH 5.0 Ur Specific [place] 1.027 Urine Protein 2+ H Urine Glucose (UA) 3+ H Urine Ketones 1+ H Urine Blood 2+ H Urine Nitrate Negative Urine Bilirubin Negative Urine Urobilinogen Normal Ur Leukocyte Esterase 2+ H Urine WBC (Auto) 106 H Urine RBC (Auto) 8 H Ur Squamous Epith Cells 5 Urine Bacteria Occ H Urine HCG, Qual Negative Urine Opiates Screen Negative Urine Methadone Screen Negative Ur Barbiturates Screen Negative Ur Phencyclidine Scrn Negative Ur Amphetamines Screen Negative U Benzodiazepines Scrn Negative U Oth Cocaine Metabols Negative U Cannabinoids Screen Negative 12/12/17 12/12/17 12/12/17 14:08 15:04 16:05 WBC RBC Hgb Hct MCV MCH MCHC RDW Plt Count MPV Neut % (Auto) Lymph % (Auto) Clinch % (Auto) Eos % (Auto) Baso % (Auto) Neut # (Auto) Lymph # (Auto) Clinch # (Auto) Eos # (Auto) Baso # (Auto) Neutrophils % (Manual) Band Neutrophils % Lymphocytes % (Manual) Monocytes % (Manual) Platelet Estimate RBC Morphology PT INR APTT pO2 VBG pH VBG pCO2 VBG HCO3 VBG Total CO2 VBG O2 Sat (Calc) VBG Base Excess VBG Potassium Sodium Chloride Glucose Lactate FiO2 Crit Value Called To Crit Value Called By Crit Value Read Back Blood Gas Notified Time Potassium Carbon Dioxide Anion Gap BUN Creatinine Est GFR ( Amer) Est GFR (Non-Af Amer) POC Glucose (mg/dL) 451 H* 346 H Random Glucose Lactic Acid 3.8 H Calcium Total Bilirubin AST ALT Alkaline Phosphatase Troponin I Total Protein Albumin Globulin Albumin/Globulin Ratio Lipase Venous Blood Potassium Urine Color Urine Clarity Urine pH Ur Specific [place] Urine Protein Urine Glucose (UA) Urine Ketones Urine Blood Urine Nitrate Urine Bilirubin Urine Urobilinogen Ur Leukocyte Esterase Urine WBC (Auto) Urine RBC (Auto) Ur Squamous Epith Cells Urine Bacteria Urine HCG, Qual Urine Opiates Screen Urine Methadone Screen Ur Barbiturates Screen Ur Phencyclidine Scrn Ur Amphetamines Screen U Benzodiazepines Scrn U Oth Cocaine Metabols U Cannabinoids Screen Assessment & Plan - Assessment and Plan (Free Text) Assessment: 47 yo F admitted to ICU w/ emphysematous pyelonephritis(L). 1. sepsis 2/2 to emphysematous pyelonephritis -CT abd/pelvis-renal collecting system air and perinephric fat stranding consistent w/ emphysematous pyelo -WBC 14.5, bands 15 -temp 102.6, HR 140 on admission -lactate 7.5 -zosyn 3.375 q6 -blood/urine cx pending -NaCl @125/hr -morphine q4 -Urology consult Dr. Cruz 2. Hyperglycemia -glucose 451 -diabetic diet -zofran q6 -NaCl @125/hr Ppx -heparin -SCD -GI ppx not indicated
[2017-12-12] MEDS ORDERED: Piperacill/Tazo 3.375gm in Dex 3.375 GM/50 ML BAG IVPB SCH (19:00)
[2017-12-12] MEDS: Meropenem 500 MG in Sodium Chloride 0.9% 100 ML IVPB SCH (21:45)
[2017-12-13] MEDS ORDERED: Acetaminophen IV 1,000 MG in Premixed IV 1 EA IV ONE (00:16)
[2017-12-13] MEDS ORDERED: Sodium Chloride 0.9% 1,000 ML IV ONE (00:16)
[2017-12-13] MEDS: Sodium Chloride 0.9% 1,000 ML IV SCH ×3 (02:00→14:59)
[2017-12-13] MEDS: (Novolog) Insulin Aspart, Recombinant 100 u/ml 10 ml vial SC SCH ×6 (04:32→22:50)
[2017-12-13 05:27] LABS: ARTERIAL BLOOD GAS HCO3 22.5 mmol/L (21-28); ARTERIAL BLOOD GAS O2 SAT 95.9 % (95-98); ARTERIAL BLOOD GAS PCO2 33 mm/Hg (35-45); ARTERIAL BLOOD GAS PH 7.41 (7.35-7.45); ARTERIAL BLOOD GAS PO2 65 mm/Hg (80-100); ARTERIAL BLOOD GAS TCO2 21.9 mmol/L (22-28)
[2017-12-13 05:39] LABS: BASO % 0.4 % (0.0-2.0); EOS # 0.1 K/uL (0.0-0.7); EOS % 0.6 % (0.0-4.0); LYMPH # 0.5 K/uL (1.0-4.3); LYMPH % 5.1 % (20.0-40.0); MEAN CELL VOLUME 85.2 fL (81.0-99.0); MEAN CORPUSCULAR HEMOGLOBIN 28.9 pg (27.0-31.0); MEAN CORPUSCULAR HGB CONC 33.8 g/dL (33.0-37.0); MEAN PLATELET VOLUME 8.3 fL (7.2-11.7); MONO # 0.7 K/uL (0.0-0.8); MONO % 7.6 % (0.0-10.0); NEUT # 7.8 K/uL (1.8-7.0); NEUT % 86.3 % (50.0-75.0); PLATELET COUNT 163 K/uL (130-400); RBC 3.48 Mil/uL (3.80-5.20); RED CELL DISTRIBUTION WIDTH 13.3 % (11.5-14.5); WHITE BLOOD COUNT 9.1 K/uL (4.8-10.8)
[2017-12-13] MEDS: Meropenem 500 MG in Sodium Chloride 0.9% 100 ML IVPB SCH (05:41)
--- NOTE | 2017-12-13 05:45 | CON ---
DATE: 12/12/2017 COMPREHENSIVE ICU CONSULT TIME OF CONSULTATION: Roughly 7:30 p.m. BRIEF HISTORY: The patient is a 47-year-old female from [place] with multiple episodes of acute kidney infections over the last year. This current episode began within the last day or two, causing bilateral back pain, more on the left than the right, requiring her to come to [facility] Emergency Room. Abdominopelvic CT done on 12/12/2017 only with oral contrast showed air within the left renal collecting system, suggestive of possible emphysematous left pyelonephritis. She also has a small 3 mm calcification in the pelvis that could be located within the left UVJ. There is no evidence of any hydronephrosis. The urinary bladder was physiologically distended. No obvious intraluminal urinary bladder calculi. The patient was started on IV Rocephin which was changed to Zosyn. This is her fourth episode of kidney infections over the last year. PAST MEDICAL HISTORY: Includes hypertension, diabetes mellitus, and hyperlipidemia. PAST SURGICAL HISTORY: Includes cataract surgery. GYNECOLOGICAL HISTORY: She is 0, para 0, with no pregnancies and no children. FAMILY HISTORY: Noncontributory. She has no prior history of any kidney stones. SOCIAL HISTORY: She has no history of any alcohol use or tobacco use. ALLERGIES: SHE HAS NO KNOWN ALLERGIES TO ANY MEDICATIONS. PHYSICAL EXAMINATION: GENERAL: She is a well-developed, well-nourished, slightly obese female. She is alert. She is oriented. HEENT: Grossly within normal limits. NECK: Supple. Thyroid not palpable. ABDOMEN: Soft, not distended. She has no right CVA tenderness, and some 1+ to 2+ left CVA tenderness, and no suprapubic tenderness. LABORATORY DATA: Laboratory evaluation on 12/12/2017 shows a CBC with a WBC count of 14.5, hemoglobin of 12.4, and hematocrit of 36.7. Her coag profile shows an elevated PT of 16, INR of 1.5, and a PTT of 30. Her chem profile shows a sodium of 136, potassium 3.6, chloride 91, CO2 21, BUN and creatinine 18 and 1.7 respectively with a GFR of 32. Her random glucose level was 539 which was markedly elevated at 12 noon, and the repeat glucose was 346. Lactic acid was 3.8, calcium 9.5, and lactate was 7.5 which was elevated. Otherwise, a normal comprehensive metabolic profile. Urinalysis showed the color was yellow, clarity was hazy, pH 5.0, specific gravity 1.027, protein 2+, glucose 3+, ketones 1+, blood 2+, nitrite negative, bilirubin negative, urobilinogen normal, leukocyte esterase 2+, 106 wbc's, 8 rbc's with occasional bacteria per high-power field. Urine hCG was negative. DIAGNOSTIC IMPRESSION: 1. 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 2. Possible 3 mm left ureterovesical junction stone. PLAN: For this patient will be also to add Flomax 0.4 mg daily. The patient currently on Zosyn IV. Blood and urine cultures are both pending. Rocky Cruz MD EFFIE
[2017-12-13 05:51] LABS: ALB/GLOB RATIO 1.1 (1.0-2.1); ALBUMIN 3.4 g/dL (3.5-5.0); CALCIUM 7.5 mg/dl (8.6-10.4)
[2017-12-13 06:58] LABS: BANDS 22 % (0-2); LYMPHOCYTE 13 % (20-40); MONOCYTE 4 % (0-10); MYELOCYTE 1 % (0-0); NEUTROPHIL 60 % (50-75); PLATELET ESTIMATE NORMAL (NORMAL); TOTAL CELLS COUNTED 100
[2017-12-13] MEDS: Aztreonam 1 GM in Sodium Chloride 0.9% 100 ML IVPB SCH ×2 (09:07→15:53)
[2017-12-13] MEDS ORDERED: cefTRIAXone 2 GM in Sodium Chloride 0.9% 100 ML IVPB SCH (10:00)
[2017-12-13] MEDS: Meropenem 1 GM in Sodium Chloride 0.9% 100 ML IVPB SCH ×2 (10:45→17:38)
--- NOTE | 2017-12-13 14:42 | CP.CCUPN ---
<Conchita Mejia - Last Filed: 12/13/17 14:59> CCU Subjective - Physician Review Subjective (Free Text): 12/13/17 14:43 47 yo F w/ PMHx of uncontrolled DM2, emphysematous pyelonephritis, recurrent UTIs, anxiety and depression presents to the ED with complaints of nausea/ vomiting/diarrhea/abdominal pain/pelvic pain-L>R. CT positive for emphysematous pyelonephritis. Pt seen and examined at bedside. Febrile overnight at 104.8. Complains of nausea and several episodes of vomiting. Admits pain has improved some, but left upper/lower abdominal quadrants still painful to touch. 12/13/17 14:55 CCU Objective - Vital Signs / Intake & Output Vital Signs (Last 4 hours): Vital Signs Temp Pulse Resp BP Pulse Ox 12/13/17 14:03 121 H 28 H 115/67 12/13/17 14:00 123 H 27 H 12/13/17 13:03 120 H 27 H 139/82 95 12/13/17 13:00 125 H 28 H 95 12/13/17 12:03 125 H 136/79 96 12/13/17 12:00 99.7 F H 12/13/17 11:00 124 H 25 H 12/13/17 10:51 116 H 26 H 129/80 Intake and Output (Last 8hrs): Intake & Output 12/12/17 12/13/17 12/13/17 22:59 06:59 14:59 Intake Total 710 1825 1400 Output Total 800 622 Balance 710 1025 778 Weight 129 lb 10.109 oz 130 lb 1.6 oz Intake: Intake, IV Amount 650 1825 950 Left Antecubital 650 1825 950 Oral 60 450 Output: Urine 550 Urine, Voided 550 Stool 800 Urine/Stool Mix 2 Emesis 70 Other: Voiding Method Bedpan - Physical Exam Head: Positive for: Atraumatic, Normocephalic Extroacular Muscles: Positive for: EOMI Mouth: Positive for: Moist Mucous Membranes Respiratory/Chest: Positive for: Clear to Auscultation, Good Air Exchange. Negative for: Respiratory Distress, Accessory Muscle Use Cardiovascular: Positive for: Tachycardic Abdomen: Positive for: Tenderness, Normal Bowel Sounds Neurological: Positive for: GCS=15 Skin: Positive for: Warm Psychiatric: Positive for: Oriented x 3, Anxious - Medications Active Medications: Active Medications Generic Name Dose Route Start Last Admin Trade Name Freq PRN Reason Stop Dose Admin Heparin Sodium (Porcine) 5,000 units 12/12/17 22:00 12/13/17 09:07 Heparin SC 5,000 units Q12 BARRY Administration Sodium Chloride 1,000 mls @ 125 mls/hr 12/12/17 15:45 12/13/17 07:49 Sodium Chloride 0.9% IV Not Given .Q8H BARRY Aztreonam 1 gm/ Sodium 100 mls @ 200 mls/hr 12/13/17 08:30 12/13/17 09:07 Chloride IVPB 200 mls/hr Q8H BARRY Administration Protocol Meropenem 1 gm/ Sodium 100 mls @ 100 mls/hr 12/13/17 10:00 12/13/17 10:45 Chloride IVPB 100 mls/hr Q8H [facility] Administration Protocol Insulin Aspart 0 unit 12/13/17 11:30 12/13/17 11:59 Novolog SC 8 units ACHS [facility] Administration Protocol Morphine Sulfate 2 mg 12/12/17 14:35 12/13/17 11:39 Morphine IVP 2 mg Q4 PRN Administration Pain, moderate (4-7) Ondansetron HCl 4 mg 12/12/17 16:42 12/13/17 05:42 Zofran Inj IVP 4 mg Q6 PRN Administration Nausea/Vomiting Tamsulosin HCl 0.4 mg 12/13/17 10:00 12/13/17 09:07 Flomax PO 0.4 mg DAILY BARRY Administration - Patient Studies Lab Studies: Microbiology Studies 12/12/17 13:52 Urine Culture - Preliminary Urine,Random Gram Negative Maurisio 12/12/17 17:22 Blood Culture - Preliminary Blood Gram Negative Maurisio Gram Stain - Final 12/12/17 17:22 Blood Culture - Preliminary Blood Gram Negative Maurisio Gram Stain - Final 12/12/17 16:49 MRSA Culture (Admit) - Final Nose MRSA NOT DETECTED Lab Studies 12/13/17 12/13/17 12/13/17 Range/Units 11:33 08:20 05:35 WBC (4.8-10.8) K/uL RBC (3.80-5.20) Mil/uL Hgb (11.0-16.0) g/dL Hct (34.0-47.0) % MCV (81.0-99.0) fL MCH (27.0-31.0) pg MCHC (33.0-37.0) g/dL RDW (11.5-14.5) % Plt Count (130-400) K/uL MPV (7.2-11.7) fL Neut % (Auto) (50.0-75.0) % Lymph % (Auto) (20.0-40.0) % Ada % (Auto) (0.0-10.0) % Eos % (Auto) (0.0-4.0) % Baso % (Auto) (0.0-2.0) % Neut # (Auto) (1.8-7.0) K/uL Lymph # (Auto) (1.0-4.3) K/uL Ada # (Auto) (0.0-0.8) K/uL Eos # (Auto) (0.0-0.7) K/uL Baso # (Auto) (0.0-0.2) K/uL Neutrophils % (Manual) (50-75) % Band Neutrophils % (0-2) % Lymphocytes % (Manual) (20-40) % Monocytes % (Manual) (0-10) % Myelocytes % (0-0) % Platelet Estimate (NORMAL) APTT (21-34) SECONDS Puncture Site pCO2 (35-45) mm/Hg pO2 (80-100) mm/Hg HCO3 (21-28) mmol/L ABG pH (7.35-7.45) ABG Total CO2 (22-28) mmol/L ABG O2 Saturation (95-98) % ABG Base Excess (-2.0-3.0) mmol/L Brock Test ABG Potassium (3.6-5.2) mmol/L A-a O2 Difference mm/Hg Respiratory Index Sodium (132-148) mmol/l Chloride (98-107) mmol/L Glucose (65-105) mg/dl Lactate (0.7-2.1) mmol/L FiO2 % Potassium (3.6-5.2) mmol/L Carbon Dioxide (22-30) mmol/L Anion Gap (10-20) BUN (7-17) mg/dL Creatinine (0.7-1.2) mg/dL Est GFR ( Amer) Est GFR (Non-Af Amer) POC Glucose (mg/dL) 296 H 239 H (65-110) mg/dL Random Glucose (65-105) mg/dL Hemoglobin A1c 11.2 H (4.2-6.5) % Lactic Acid (0.7-2.1) mmol/L Calcium (8.6-10.4) mg/dl Phosphorus (2.5-4.5) mg/dL Magnesium (1.6-2.3) mg/dL Total Bilirubin (0.2-1.3) mg/dL AST (14-36) U/L ALT (9-52) U/L Alkaline Phosphatase (38-126) U/L Total Protein (6.3-8.3) g/dL Albumin (3.5-5.0) g/dL Globulin (2.2-3.9) gm/dL Albumin/Globulin Ratio (1.0-2.1) Arterial Blood Potassium (3.6-5.2) mmol/L B-Hydroxybutyrate (0.02-0.27) mM 12/13/17 12/13/17 12/13/17 Range/Units 05:35 05:35 05:35 WBC 9.1 (4.8-10.8) K/uL RBC 3.48 L (3.80-5.20) Mil/uL Hgb 10.0 L D (11.0-16.0) g/dL Hct 29.7 L (34.0-47.0) % MCV 85.2 (81.0-99.0) fL MCH 28.9 (27.0-31.0) pg MCHC 33.8 (33.0-37.0) g/dL RDW 13.3 (11.5-14.5) % Plt Count 163 (130-400) K/uL MPV 8.3 (7.2-11.7) fL Neut % (Auto) 86.3 H (50.0-75.0) % Lymph % (Auto) 5.1 L (20.0-40.0) % Ada % (Auto) 7.6 (0.0-10.0) % Eos % (Auto) 0.6 (0.0-4.0) % Baso % (Auto) 0.4 (0.0-2.0) % Neut # (Auto) 7.8 H (1.8-7.0) K/uL Lymph # (Auto) 0.5 L (1.0-4.3) K/uL Ada # (Auto) 0.7 (0.0-0.8) K/uL Eos # (Auto) 0.1 (0.0-0.7) K/uL Baso # (Auto) 0.0 (0.0-0.2) K/uL Neutrophils % (Manual) 60 (50-75) % Band Neutrophils % 22 H* (0-2) % Lymphocytes % (Manual) 13 L (20-40) % Monocytes % (Manual) 4 (0-10) % Myelocytes % 1 H (0-0) % Platelet Estimate Normal (NORMAL) APTT 32 (21-34) SECONDS Puncture Site pCO2 (35-45) mm/Hg pO2 (80-100) mm/Hg HCO3 (21-28) mmol/L ABG pH (7.35-7.45) ABG Total CO2 (22-28) mmol/L ABG O2 Saturation (95-98) % ABG Base Excess (-2.0-3.0) mmol/L Brock Test ABG Potassium (3.6-5.2) mmol/L A-a O2 Difference mm/Hg Respiratory Index Sodium 139 (132-148) mmol/l Chloride 106 (98-107) mmol/L Glucose (65-105) mg/dl Lactate (0.7-2.1) mmol/L FiO2 % Potassium 3.5 L (3.6-5.2) mmol/L Carbon Dioxide 21 L (22-30) mmol/L Anion Gap 16 (10-20) BUN 19 H (7-17) mg/dL Creatinine 1.5 H (0.7-1.2) mg/dL Est GFR ( Amer) 45 Est GFR (Non-Af Amer) 37 POC Glucose (mg/dL) (65-110) mg/dL Random Glucose 235 H (65-105) mg/dL Hemoglobin A1c (4.2-6.5) % Lactic Acid (0.7-2.1) mmol/L Calcium 7.5 L (8.6-10.4) mg/dl Phosphorus 2.9 (2.5-4.5) mg/dL Magnesium 1.6 (1.6-2.3) mg/dL Total Bilirubin 0.5 (0.2-1.3) mg/dL AST 17 (14-36) U/L ALT 26 (9-52) U/L Alkaline Phosphatase 55 (38-126) U/L Total Protein 6.5 (6.3-8.3) g/dL Albumin 3.4 L D (3.5-5.0) g/dL Globulin 3.2 (2.2-3.9) gm/dL Albumin/Globulin Ratio 1.1 (1.0-2.1) Arterial Blood Potassium (3.6-5.2) mmol/L B-Hydroxybutyrate 1.22 H (0.02-0.27) mM 12/13/17 12/13/17 12/12/17 Range/Units 04:57 04:05 23:23 WBC (4.8-10.8) K/uL RBC (3.80-5.20) Mil/uL Hgb (11.0-16.0) g/dL Hct (34.0-47.0) % MCV (81.0-99.0) fL MCH (27.0-31.0) pg MCHC (33.0-37.0) g/dL RDW (11.5-14.5) % Plt Count (130-400) K/uL MPV (7.2-11.7) fL Neut % (Auto) (50.0-75.0) % Lymph % (Auto) (20.0-40.0) % Ada % (Auto) (0.0-10.0) % Eos % (Auto) (0.0-4.0) % Baso % (Auto) (0.0-2.0) % Neut # (Auto) (1.8-7.0) K/uL Lymph # (Auto) (1.0-4.3) K/uL Ada # (Auto) (0.0-0.8) K/uL Eos # (Auto) (0.0-0.7) K/uL Baso # (Auto) (0.0-0.2) K/uL Neutrophils % (Manual) (50-75) % Band Neutrophils % (0-2) % Lymphocytes % (Manual) (20-40) % Monocytes % (Manual) (0-10) % Myelocytes % (0-0) % Platelet Estimate (NORMAL) APTT (21-34) SECONDS Puncture Site Rb pCO2 33 L (35-45) mm/Hg pO2 65 L (80-100) mm/Hg HCO3 22.5 (21-28) mmol/L ABG pH 7.41 (7.35-7.45) ABG Total CO2 21.9 L (22-28) mmol/L ABG O2 Saturation 95.9 (95-98) % ABG Base Excess -2.9 L (-2.0-3.0) mmol/L Brock Test Na ABG Potassium 3.3 L (3.6-5.2) mmol/L A-a O2 Difference 43.0 mm/Hg Respiratory Index 0.7 Sodium 137.0 (132-148) mmol/l Chloride 109.0 H (98-107) mmol/L Glucose 244 H (65-105) mg/dl Lactate 1.0 (0.7-2.1) mmol/L FiO2 21.0 % Potassium (3.6-5.2) mmol/L Carbon Dioxide (22-30) mmol/L Anion Gap (10-20) BUN (7-17) mg/dL Creatinine (0.7-1.2) mg/dL Est GFR ( Amer) Est GFR (Non-Af Amer) POC Glucose (mg/dL) 255 H 268 H (65-110) mg/dL Random Glucose (65-105) mg/dL Hemoglobin A1c (4.2-6.5) % Lactic Acid (0.7-2.1) mmol/L Calcium (8.6-10.4) mg/dl Phosphorus (2.5-4.5) mg/dL Magnesium (1.6-2.3) mg/dL Total Bilirubin (0.2-1.3) mg/dL AST (14-36) U/L ALT (9-52) U/L Alkaline Phosphatase (38-126) U/L Total Protein (6.3-8.3) g/dL Albumin (3.5-5.0) g/dL Globulin (2.2-3.9) gm/dL Albumin/Globulin Ratio (1.0-2.1) Arterial Blood Potassium 3.3 L (3.6-5.2) mmol/L B-Hydroxybutyrate (0.02-0.27) mM 12/12/17 12/12/17 12/12/17 Range/Units 19:44 16:05 15:04 WBC (4.8-10.8) K/uL RBC (3.80-5.20) Mil/uL Hgb (11.0-16.0) g/dL Hct (34.0-47.0) % MCV (81.0-99.0) fL MCH (27.0-31.0) pg MCHC (33.0-37.0) g/dL RDW (11.5-14.5) % Plt Count (130-400) K/uL MPV (7.2-11.7) fL Neut % (Auto) (50.0-75.0) % Lymph % (Auto) (20.0-40.0) % Ada % (Auto) (0.0-10.0) % Eos % (Auto) (0.0-4.0) % Baso % (Auto) (0.0-2.0) % Neut # (Auto) (1.8-7.0) K/uL Lymph # (Auto) (1.0-4.3) K/uL Ada # (Auto) (0.0-0.8) K/uL Eos # (Auto) (0.0-0.7) K/uL Baso # (Auto) (0.0-0.2) K/uL Neutrophils % (Manual) (50-75) % Band Neutrophils % (0-2) % Lymphocytes % (Manual) (20-40) % Monocytes % (Manual) (0-10) % Myelocytes % (0-0) % Platelet Estimate (NORMAL) APTT (21-34) SECONDS Puncture Site pCO2 (35-45) mm/Hg pO2 (80-100) mm/Hg HCO3 (21-28) mmol/L ABG pH (7.35-7.45) ABG Total CO2 (22-28) mmol/L ABG O2 Saturation (95-98) % ABG Base Excess (-2.0-3.0) mmol/L Brock Test ABG Potassium (3.6-5.2) mmol/L A-a O2 Difference mm/Hg Respiratory Index Sodium (132-148) mmol/l Chloride (98-107) mmol/L Glucose (65-105) mg/dl Lactate (0.7-2.1) mmol/L FiO2 % Potassium (3.6-5.2) mmol/L Carbon Dioxide (22-30) mmol/L Anion Gap (10-20) BUN (7-17) mg/dL Creatinine (0.7-1.2) mg/dL Est GFR ( Amer) Est GFR (Non-Af Amer) POC Glucose (mg/dL) 346 H 346 H (65-110) mg/dL Random Glucose (65-105) mg/dL Hemoglobin A1c (4.2-6.5) % Lactic Acid 3.8 H (0.7-2.1) mmol/L Calcium (8.6-10.4) mg/dl Phosphorus (2.5-4.5) mg/dL Magnesium (1.6-2.3) mg/dL Total Bilirubin (0.2-1.3) mg/dL AST (14-36) U/L ALT (9-52) U/L Alkaline Phosphatase (38-126) U/L Total Protein (6.3-8.3) g/dL Albumin (3.5-5.0) g/dL Globulin (2.2-3.9) gm/dL Albumin/Globulin Ratio (1.0-2.1) Arterial Blood Potassium (3.6-5.2) mmol/L B-Hydroxybutyrate (0.02-0.27) mM 12/12/17 Range/Units 14:06 WBC (4.8-10.8) K/uL RBC (3.80-5.20) Mil/uL Hgb (11.0-16.0) g/dL Hct (34.0-47.0) % MCV (81.0-99.0) fL MCH (27.0-31.0) pg MCHC (33.0-37.0) g/dL RDW (11.5-14.5) % Plt Count (130-400) K/uL MPV (7.2-11.7) fL Neut % (Auto) (50.0-75.0) % Lymph % (Auto) (20.0-40.0) % Ada % (Auto) (0.0-10.0) % Eos % (Auto) (0.0-4.0) % Baso % (Auto) (0.0-2.0) % Neut # (Auto) (1.8-7.0) K/uL Lymph # (Auto) (1.0-4.3) K/uL Ada # (Auto) (0.0-0.8) K/uL Eos # (Auto) (0.0-0.7) K/uL Baso # (Auto) (0.0-0.2) K/uL Neutrophils % (Manual) (50-75) % Band Neutrophils % (0-2) % Lymphocytes % (Manual) (20-40) % Monocytes % (Manual) (0-10) % Myelocytes % (0-0) % Platelet Estimate (NORMAL) APTT (21-34) SECONDS Puncture Site pCO2 (35-45) mm/Hg pO2 (80-100) mm/Hg HCO3 (21-28) mmol/L ABG pH (7.35-7.45) ABG Total CO2 (22-28) mmol/L ABG O2 Saturation (95-98) % ABG Base Excess (-2.0-3.0) mmol/L Brock Test ABG Potassium (3.6-5.2) mmol/L A-a O2 Difference mm/Hg Respiratory Index Sodium (132-148) mmol/l Chloride (98-107) mmol/L Glucose (65-105) mg/dl Lactate (0.7-2.1) mmol/L FiO2 % Potassium (3.6-5.2) mmol/L Carbon Dioxide (22-30) mmol/L Anion Gap (10-20) BUN (7-17) mg/dL Creatinine (0.7-1.2) mg/dL Est GFR ( Amer) Est GFR (Non-Af Amer) POC Glucose (mg/dL) 418 H* (65-110) mg/dL Random Glucose (65-105) mg/dL Hemoglobin A1c (4.2-6.5) % Lactic Acid (0.7-2.1) mmol/L Calcium (8.6-10.4) mg/dl Phosphorus (2.5-4.5) mg/dL Magnesium (1.6-2.3) mg/dL Total Bilirubin (0.2-1.3) mg/dL AST (14-36) U/L ALT (9-52) U/L Alkaline Phosphatase (38-126) U/L Total Protein (6.3-8.3) g/dL Albumin (3.5-5.0) g/dL Globulin (2.2-3.9) gm/dL Albumin/Globulin Ratio (1.0-2.1) Arterial Blood Potassium (3.6-5.2) mmol/L B-Hydroxybutyrate (0.02-0.27) mM Laboratory Results - last 24 hr 12/12/17 12/12/17 12/12/17 14:06 15:04 16:05 WBC RBC Hgb Hct MCV MCH MCHC RDW Plt Count MPV Neut % (Auto) Lymph % (Auto) Ada % (Auto) Eos % (Auto) Baso % (Auto) Neut # (Auto) Lymph # (Auto) Ada # (Auto) Eos # (Auto) Baso # (Auto) Neutrophils % (Manual) Band Neutrophils % Lymphocytes % (Manual) Monocytes % (Manual) Myelocytes % Platelet Estimate APTT Puncture Site pCO2 pO2 HCO3 ABG pH ABG Total CO2 ABG O2 Saturation ABG Base Excess Brock Test ABG Potassium A-a O2 Difference Respiratory Index Sodium Chloride Glucose Lactate FiO2 Potassium Carbon Dioxide Anion Gap BUN Creatinine Est GFR ( Amer) Est GFR (Non-Af Amer) POC Glucose (mg/dL) 418 H* 346 H Random Glucose Hemoglobin A1c Lactic Acid 3.8 H Calcium Phosphorus Magnesium Total Bilirubin AST ALT Alkaline Phosphatase Total Protein Albumin Globulin Albumin/Globulin Ratio Arterial Blood Potassium B-Hydroxybutyrate 12/12/17 12/12/17 12/13/17 19:44 23:23 04:05 WBC RBC Hgb Hct MCV MCH MCHC RDW Plt Count MPV Neut % (Auto) Lymph % (Auto) Ada % (Auto) Eos % (Auto) Baso % (Auto) Neut # (Auto) Lymph # (Auto) Ada # (Auto) Eos # (Auto) Baso # (Auto) Neutrophils % (Manual) Band Neutrophils % Lymphocytes % (Manual) Monocytes % (Manual) Myelocytes % Platelet Estimate APTT Puncture Site pCO2 pO2 HCO3 ABG pH ABG Total CO2 ABG O2 Saturation ABG Base Excess Brock Test ABG Potassium A-a O2 Difference Respiratory Index Sodium Chloride Glucose Lactate FiO2 Potassium Carbon Dioxide Anion Gap BUN Creatinine Est GFR ( Amer) Est GFR (Non-Af Amer) POC Glucose (mg/dL) 346 H 268 H 255 H Random Glucose Hemoglobin A1c Lactic Acid Calcium Phosphorus Magnesium Total Bilirubin AST ALT Alkaline Phosphatase Total Protein Albumin Globulin Albumin/Globulin Ratio Arterial Blood Potassium B-Hydroxybutyrate 12/13/17 12/13/17 12/13/17 04:57 05:35 05:35 WBC 9.1 RBC 3.48 L Hgb 10.0 L D Hct 29.7 L MCV 85.2 MCH 28.9 MCHC 33.8 RDW 13.3 Plt Count 163 MPV 8.3 Neut % (Auto) 86.3 H Lymph % (Auto) 5.1 L Ada % (Auto) 7.6 Eos % (Auto) 0.6 Baso % (Auto) 0.4 Neut # (Auto) 7.8 H Lymph # (Auto) 0.5 L Ada # (Auto) 0.7 Eos # (Auto) 0.1 Baso # (Auto) 0.0 Neutrophils % (Manual) 60 Band Neutrophils % 22 H* Lymphocytes % (Manual) 13 L Monocytes % (Manual) 4 Myelocytes % 1 H Platelet Estimate Normal APTT 32 Puncture Site Rb pCO2 33 L pO2 65 L HCO3 22.5 ABG pH 7.41 ABG Total CO2 21.9 L ABG O2 Saturation 95.9 ABG Base Excess -2.9 L Brock Test Na ABG Potassium 3.3 L A-a O2 Difference 43.0 Respiratory Index 0.7 Sodium 137.0 Chloride 109.0 H Glucose 244 H Lactate 1.0 FiO2 21.0 Potassium Carbon Dioxide Anion Gap BUN Creatinine Est GFR ( Amer) Est GFR (Non-Af Amer) POC Glucose (mg/dL) Random Glucose Hemoglobin A1c Lactic Acid Calcium Phosphorus Magnesium Total Bilirubin AST ALT Alkaline Phosphatase Total Protein Albumin Globulin Albumin/Globulin Ratio Arterial Blood Potassium 3.3 L B-Hydroxybutyrate 12/13/17 12/13/17 12/13/17 05:35 05:35 08:20 WBC RBC Hgb Hct MCV MCH MCHC RDW Plt Count MPV Neut % (Auto) Lymph % (Auto) Ada % (Auto) Eos % (Auto) Baso % (Auto) Neut # (Auto) Lymph # (Auto) Ada # (Auto) Eos # (Auto) Baso # (Auto) Neutrophils % (Manual) Band Neutrophils % Lymphocytes % (Manual) Monocytes % (Manual) Myelocytes % Platelet Estimate APTT Puncture Site pCO2 pO2 HCO3 ABG pH ABG Total CO2 ABG O2 Saturation ABG Base Excess Brock Test ABG Potassium A-a O2 Difference Respiratory Index Sodium 139 Chloride 106 Glucose Lactate FiO2 Potassium 3.5 L Carbon Dioxide 21 L Anion Gap 16 BUN 19 H Creatinine 1.5 H Est GFR ( Amer) 45 Est GFR (Non-Af Amer) 37 POC Glucose (mg/dL) 239 H Random Glucose 235 H Hemoglobin A1c 11.2 H Lactic Acid Calcium 7.5 L Phosphorus 2.9 Magnesium 1.6 Total Bilirubin 0.5 AST 17 ALT 26 Alkaline Phosphatase 55 Total Protein 6.5 Albumin 3.4 L D Globulin 3.2 Albumin/Globulin Ratio 1.1 Arterial Blood Potassium B-Hydroxybutyrate 1.22 H 12/13/17 11:33 WBC RBC Hgb Hct MCV MCH MCHC RDW Plt Count MPV Neut % (Auto) Lymph % (Auto) Ada % (Auto) Eos % (Auto) Baso % (Auto) Neut # (Auto) Lymph # (Auto) Ada # (Auto) Eos # (Auto) Baso # (Auto) Neutrophils % (Manual) Band Neutrophils % Lymphocytes % (Manual) Monocytes % (Manual) Myelocytes % Platelet Estimate APTT Puncture Site pCO2 pO2 HCO3 ABG pH ABG Total CO2 ABG O2 Saturation ABG Base Excess Brock Test ABG Potassium A-a O2 Difference Respiratory Index Sodium Chloride Glucose Lactate FiO2 Potassium Carbon Dioxide Anion Gap BUN Creatinine Est GFR ( Amer) Est GFR (Non-Af Amer) POC Glucose (mg/dL) 296 H Random Glucose Hemoglobin A1c Lactic Acid Calcium Phosphorus Magnesium Total Bilirubin AST ALT Alkaline Phosphatase Total Protein Albumin Globulin Albumin/Globulin Ratio Arterial Blood Potassium B-Hydroxybutyrate Fingerstick Blood Sugar Results: 296 Review of Systems - Constitutional Constitutional: absent: Fever, Chills - Cardiovascular Cardiovascular: absent: Chest Pain, Dyspnea - Respiratory Respiratory: absent: Cough, Dyspnea - Gastrointestinal Gastrointestinal: Abdominal Pain, Loose Stools, Nausea, Vomiting Critical Care Progress Note - Nutrition Nutrition: Nutrition Category Date Time Status Diabetic [Consistent Carbohydrate] [DIET] Diets 12/12/17 Dinner Active Assessment/Plan - Assessment and Plan (Free Text) Assessment: 47 yo F admitted to ICU w/ emphysematous pyelonephritis(L). 1. sepsis 2/2 to emphysematous pyelonephritis -CT abd/pelvis-renal collecting system air and perinephric fat stranding consistent w/ emphysematous pyelo -WBC 9.1, bands 22, temp 104.8 ON, lactate 1 -aztreonam 1g q8, merrem 1g q8 -NaCl @125/hr -morphine 2mg q4 -Urology consult Dr. Cruz -flomax .4mg -ID consult Dr. Gant -blood cx, gram -rods -urine cx, gram + rods -echo, r/o vegetations 2. Bacteremia -blood cx, gram -rods -empiric tx w/ aztreonam and merrem -f/u w/ ID pending sensitivities -echo, r/o vegetations 3. Hyperglycemia 2/2 poorly controlled DM2 -hgb a1c 11.2 -novolog achs -diabetic diet -zofran 4mg q6 -NaCl @125/hr Ppx -heparin 5000 -SCD -GI ppx not indicated - Date & Time Date: 12/13/17 Time: 15:15 <Fish Corona - Last Filed: 12/13/17 15:29> CCU Objective - Vital Signs / Intake & Output Vital Signs (Last 4 hours): Vital Signs Temp Pulse Resp BP Pulse Ox 12/13/17 15:04 123 H 18 110/66 95 12/13/17 15:00 120 H 29 H 94 L 12/13/17 14:03 121 H 28 H 115/67 12/13/17 14:00 123 H 27 H 12/13/17 13:03 120 H 27 H 139/82 95 12/13/17 13:00 125 H 28 H 95 12/13/17 12:03 125 H 136/79 96 12/13/17 12:00 99.7 F H Intake and Output (Last 8hrs): Intake & Output 12/13/17 12/13/17 12/13/17 06:59 14:59 22:59 Intake Total 1825 1400 325 Output Total 800 722 Balance 1025 678 325 Weight 130 lb 1.6 oz Intake: Intake, IV Amount 1825 950 125 Left Antecubital 1825 950 125 Oral 450 200 Output: Urine 650 Urine, Voided 650 Stool 800 Urine/Stool Mix 2 Emesis 70 - Medications Active Medications: Active Medications Generic Name Dose Route Start Last Admin Trade Name José Miguelq PRN Reason Stop Dose Admin Heparin Sodium (Porcine) 5,000 units 12/12/17 22:00 12/13/17 09:07 Heparin SC 5,000 units Q12 BARRY Administration Sodium Chloride 1,000 mls @ 125 mls/hr 12/12/17 15:45 12/13/17 14:59 Sodium Chloride 0.9% IV 125 mls/hr .Q8H BARRY Administration Aztreonam 1 gm/ Sodium 100 mls @ 200 mls/hr 12/13/17 08:30 12/13/17 09:07 Chloride IVPB 200 mls/hr Q8H BARRY Administration Protocol Meropenem 1 gm/ Sodium 100 mls @ 100 mls/hr 12/13/17 10:00 12/13/17 10:45 Chloride IVPB 100 mls/hr Q8H BARRY Administration Protocol Insulin Aspart 0 unit 12/13/17 11:30 12/13/17 11:59 Novolog SC 8 units ACHS BARRY Administration Protocol Morphine Sulfate 2 mg 12/12/17 14:35 12/13/17 11:39 Morphine IVP 2 mg Q4 PRN Administration Pain, moderate (4-7) Ondansetron HCl 4 mg 12/12/17 16:42 12/13/17 05:42 Zofran Inj IVP 4 mg Q6 PRN Administration Nausea/Vomiting Tamsulosin HCl 0.4 mg 12/13/17 10:00 12/13/17 09:07 Flomax PO 0.4 mg DAILY BARRY Administration - Patient Studies Lab Studies: Microbiology Studies 12/12/17 13:52 Urine Culture - Preliminary Urine,Random Gram Negative Maurisio 12/12/17 17:22 Blood Culture - Preliminary Blood Gram Negative Maurisio Gram Stain - Final 12/12/17 17:22 Blood Culture - Preliminary Blood Gram Negative Maurisio Gram Stain - Final 12/12/17 16:49 MRSA Culture (Admit) - Final Nose MRSA NOT DETECTED Lab Studies 12/13/17 12/13/17 12/13/17 Range/Units 11:33 08:20 05:35 WBC (4.8-10.8) K/uL RBC (3.80-5.20) Mil/uL Hgb (11.0-16.0) g/dL Hct (34.0-47.0) % MCV (81.0-99.0) fL MCH (27.0-31.0) pg MCHC (33.0-37.0) g/dL RDW (11.5-14.5) % Plt Count (130-400) K/uL MPV (7.2-11.7) fL Neut % (Auto) (50.0-75.0) % Lymph % (Auto) (20.0-40.0) % Ada % (Auto) (0.0-10.0) % Eos % (Auto) (0.0-4.0) % Baso % (Auto) (0.0-2.0) % Neut # (Auto) (1.8-7.0) K/uL Lymph # (Auto) (1.0-4.3) K/uL Ada # (Auto) (0.0-0.8) K/uL Eos # (Auto) (0.0-0.7) K/uL Baso # (Auto) (0.0-0.2) K/uL Neutrophils % (Manual) (50-75) % Band Neutrophils % (0-2) % Lymphocytes % (Manual) (20-40) % Monocytes % (Manual) (0-10) % Myelocytes % (0-0) % Platelet Estimate (NORMAL) APTT (21-34) SECONDS Puncture Site pCO2 (35-45) mm/Hg pO2 (80-100) mm/Hg HCO3 (21-28) mmol/L ABG pH (7.35-7.45) ABG Total CO2 (22-28) mmol/L ABG O2 Saturation (95-98) % ABG Base Excess (-2.0-3.0) mmol/L Brock Test ABG Potassium (3.6-5.2) mmol/L A-a O2 Difference mm/Hg Respiratory Index Sodium (132-148) mmol/l Chloride (98-107) mmol/L Glucose (65-105) mg/dl Lactate (0.7-2.1) mmol/L FiO2 % Potassium (3.6-5.2) mmol/L Carbon Dioxide (22-30) mmol/L Anion Gap (10-20) BUN (7-17) mg/dL Creatinine (0.7-1.2) mg/dL Est GFR ( Amer) Est GFR (Non-Af Amer) POC Glucose (mg/dL) 296 H 239 H (65-110) mg/dL Random Glucose (65-105) mg/dL Hemoglobin A1c 11.2 H (4.2-6.5) % Lactic Acid (0.7-2.1) mmol/L Calcium (8.6-10.4) mg/dl Phosphorus (2.5-4.5) mg/dL Magnesium (1.6-2.3) mg/dL Total Bilirubin (0.2-1.3) mg/dL AST (14-36) U/L ALT (9-52) U/L Alkaline Phosphatase (38-126) U/L Total Protein (6.3-8.3) g/dL Albumin (3.5-5.0) g/dL Globulin (2.2-3.9) gm/dL Albumin/Globulin Ratio (1.0-2.1) Arterial Blood Potassium (3.6-5.2) mmol/L B-Hydroxybutyrate (0.02-0.27) mM 12/13/17 12/13/17 12/13/17 Range/Units 05:35 05:35 05:35 WBC 9.1 (4.8-10.8) K/uL RBC 3.48 L (3.80-5.20) Mil/uL Hgb 10.0 L D (11.0-16.0) g/dL Hct 29.7 L (34.0-47.0) % MCV 85.2 (81.0-99.0) fL MCH 28.9 (27.0-31.0) pg MCHC 33.8 (33.0-37.0) g/dL RDW 13.3 (11.5-14.5) % Plt Count 163 (130-400) K/uL MPV 8.3 (7.2-11.7) fL Neut % (Auto) 86.3 H (50.0-75.0) % Lymph % (Auto) 5.1 L (20.0-40.0) % Ada % (Auto) 7.6 (0.0-10.0) % Eos % (Auto) 0.6 (0.0-4.0) % Baso % (Auto) 0.4 (0.0-2.0) % Neut # (Auto) 7.8 H (1.8-7.0) K/uL Lymph # (Auto) 0.5 L (1.0-4.3) K/uL Ada # (Auto) 0.7 (0.0-0.8) K/uL Eos # (Auto) 0.1 (0.0-0.7) K/uL Baso # (Auto) 0.0 (0.0-0.2) K/uL Neutrophils % (Manual) 60 (50-75) % Band Neutrophils % 22 H* (0-2) % Lymphocytes % (Manual) 13 L (20-40) % Monocytes % (Manual) 4 (0-10) % Myelocytes % 1 H (0-0) % Platelet Estimate Normal (NORMAL) APTT 32 (21-34) SECONDS Puncture Site pCO2 (35-45) mm/Hg pO2 (80-100) mm/Hg HCO3 (21-28) mmol/L ABG pH (7.35-7.45) ABG Total CO2 (22-28) mmol/L ABG O2 Saturation (95-98) % ABG Base Excess (-2.0-3.0) mmol/L Brock Test ABG Potassium (3.6-5.2) mmol/L A-a O2 Difference mm/Hg Respiratory Index Sodium 139 (132-148) mmol/l Chloride 106 (98-107) mmol/L Glucose (65-105) mg/dl Lactate (0.7-2.1) mmol/L FiO2 % Potassium 3.5 L (3.6-5.2) mmol/L Carbon Dioxide 21 L (22-30) mmol/L Anion Gap 16 (10-20) BUN 19 H (7-17) mg/dL Creatinine 1.5 H (0.7-1.2) mg/dL Est GFR ( Amer) 45 Est GFR (Non-Af Amer) 37 POC Glucose (mg/dL) (65-110) mg/dL Random Glucose 235 H (65-105) mg/dL Hemoglobin A1c (4.2-6.5) % Lactic Acid (0.7-2.1) mmol/L Calcium 7.5 L (8.6-10.4) mg/dl Phosphorus 2.9 (2.5-4.5) mg/dL Magnesium 1.6 (1.6-2.3) mg/dL Total Bilirubin 0.5 (0.2-1.3) mg/dL AST 17 (14-36) U/L ALT 26 (9-52) U/L Alkaline Phosphatase 55 (38-126) U/L Total Protein 6.5 (6.3-8.3) g/dL Albumin 3.4 L D (3.5-5.0) g/dL Globulin 3.2 (2.2-3.9) gm/dL Albumin/Globulin Ratio 1.1 (1.0-2.1) Arterial Blood Potassium (3.6-5.2) mmol/L B-Hydroxybutyrate 1.22 H (0.02-0.27) mM 12/13/17 12/13/17 12/12/17 Range/Units 04:57 04:05 23:23 WBC (4.8-10.8) K/uL RBC (3.80-5.20) Mil/uL Hgb (11.0-16.0) g/dL Hct (34.0-47.0) % MCV (81.0-99.0) fL MCH (27.0-31.0) pg MCHC (33.0-37.0) g/dL RDW (11.5-14.5) % Plt Count (130-400) K/uL MPV (7.2-11.7) fL Neut % (Auto) (50.0-75.0) % Lymph % (Auto) (20.0-40.0) % Ada % (Auto) (0.0-10.0) % Eos % (Auto) (0.0-4.0) % Baso % (Auto) (0.0-2.0) % Neut # (Auto) (1.8-7.0) K/uL Lymph # (Auto) (1.0-4.3) K/uL Ada # (Auto) (0.0-0.8) K/uL Eos # (Auto) (0.0-0.7) K/uL Baso # (Auto) (0.0-0.2) K/uL Neutrophils % (Manual) (50-75) % Band Neutrophils % (0-2) % Lymphocytes % (Manual) (20-40) % Monocytes % (Manual) (0-10) % Myelocytes % (0-0) % Platelet Estimate (NORMAL) APTT (21-34) SECONDS Puncture Site Rb pCO2 33 L (35-45) mm/Hg pO2 65 L (80-100) mm/Hg HCO3 22.5 (21-28) mmol/L ABG pH 7.41 (7.35-7.45) ABG Total CO2 21.9 L (22-28) mmol/L ABG O2 Saturation 95.9 (95-98) % ABG Base Excess -2.9 L (-2.0-3.0) mmol/L Brock Test Na ABG Potassium 3.3 L (3.6-5.2) mmol/L A-a O2 Difference 43.0 mm/Hg Respiratory Index 0.7 Sodium 137.0 (132-148) mmol/l Chloride 109.0 H (98-107) mmol/L Glucose 244 H (65-105) mg/dl Lactate 1.0 (0.7-2.1) mmol/L FiO2 21.0 % Potassium (3.6-5.2) mmol/L Carbon Dioxide (22-30) mmol/L Anion Gap (10-20) BUN (7-17) mg/dL Creatinine (0.7-1.2) mg/dL Est GFR ( Amer) Est GFR (Non-Af Amer) POC Glucose (mg/dL) 255 H 268 H (65-110) mg/dL Random Glucose (65-105) mg/dL Hemoglobin A1c (4.2-6.5) % Lactic Acid (0.7-2.1) mmol/L Calcium (8.6-10.4) mg/dl Phosphorus (2.5-4.5) mg/dL Magnesium (1.6-2.3) mg/dL Total Bilirubin (0.2-1.3) mg/dL AST (14-36) U/L ALT (9-52) U/L Alkaline Phosphatase (38-126) U/L Total Protein (6.3-8.3) g/dL Albumin (3.5-5.0) g/dL Globulin (2.2-3.9) gm/dL Albumin/Globulin Ratio (1.0-2.1) Arterial Blood Potassium 3.3 L (3.6-5.2) mmol/L B-Hydroxybutyrate (0.02-0.27) mM 12/12/17 12/12/17 12/12/17 Range/Units 19:44 16:05 15:04 WBC (4.8-10.8) K/uL RBC (3.80-5.20) Mil/uL Hgb (11.0-16.0) g/dL Hct (34.0-47.0) % MCV (81.0-99.0) fL MCH (27.0-31.0) pg MCHC (33.0-37.0) g/dL RDW (11.5-14.5) % Plt Count (130-400) K/uL MPV (7.2-11.7) fL Neut % (Auto) (50.0-75.0) % Lymph % (Auto) (20.0-40.0) % Ada % (Auto) (0.0-10.0) % Eos % (Auto) (0.0-4.0) % Baso % (Auto) (0.0-2.0) % Neut # (Auto) (1.8-7.0) K/uL Lymph # (Auto) (1.0-4.3) K/uL Ada # (Auto) (0.0-0.8) K/uL Eos # (Auto) (0.0-0.7) K/uL Baso # (Auto) (0.0-0.2) K/uL Neutrophils % (Manual) (50-75) % Band Neutrophils % (0-2) % Lymphocytes % (Manual) (20-40) % Monocytes % (Manual) (0-10) % Myelocytes % (0-0) % Platelet Estimate (NORMAL) APTT (21-34) SECONDS Puncture Site pCO2 (35-45) mm/Hg pO2 (80-100) mm/Hg HCO3 (21-28) mmol/L ABG pH (7.35-7.45) ABG Total CO2 (22-28) mmol/L ABG O2 Saturation (95-98) % ABG Base Excess (-2.0-3.0) mmol/L Brock Test ABG Potassium (3.6-5.2) mmol/L A-a O2 Difference mm/Hg Respiratory Index Sodium (132-148) mmol/l Chloride (98-107) mmol/L Glucose (65-105) mg/dl Lactate (0.7-2.1) mmol/L FiO2 % Potassium (3.6-5.2) mmol/L Carbon Dioxide (22-30) mmol/L Anion Gap (10-20) BUN (7-17) mg/dL Creatinine (0.7-1.2) mg/dL Est GFR ( Amer) Est GFR (Non-Af Amer) POC Glucose (mg/dL) 346 H 346 H (65-110) mg/dL Random Glucose (65-105) mg/dL Hemoglobin A1c (4.2-6.5) % Lactic Acid 3.8 H (0.7-2.1) mmol/L Calcium (8.6-10.4) mg/dl Phosphorus (2.5-4.5) mg/dL Magnesium (1.6-2.3) mg/dL Total Bilirubin (0.2-1.3) mg/dL AST (14-36) U/L ALT (9-52) U/L Alkaline Phosphatase (38-126) U/L Total Protein (6.3-8.3) g/dL Albumin (3.5-5.0) g/dL Globulin (2.2-3.9) gm/dL Albumin/Globulin Ratio (1.0-2.1) Arterial Blood Potassium (3.6-5.2) mmol/L B-Hydroxybutyrate (0.02-0.27) mM 12/12/17 Range/Units 14:06 WBC (4.8-10.8) K/uL RBC (3.80-5.20) Mil/uL Hgb (11.0-16.0) g/dL Hct (34.0-47.0) % MCV (81.0-99.0) fL MCH (27.0-31.0) pg MCHC (33.0-37.0) g/dL RDW (11.5-14.5) % Plt Count (130-400) K/uL MPV (7.2-11.7) fL Neut % (Auto) (50.0-75.0) % Lymph % (Auto) (20.0-40.0) % Ada % (Auto) (0.0-10.0) % Eos % (Auto) (0.0-4.0) % Baso % (Auto) (0.0-2.0) % Neut # (Auto) (1.8-7.0) K/uL Lymph # (Auto) (1.0-4.3) K/uL Ada # (Auto) (0.0-0.8) K/uL Eos # (Auto) (0.0-0.7) K/uL Baso # (Auto) (0.0-0.2) K/uL Neutrophils % (Manual) (50-75) % Band Neutrophils % (0-2) % Lymphocytes % (Manual) (20-40) % Monocytes % (Manual) (0-10) % Myelocytes % (0-0) % Platelet Estimate (NORMAL) APTT (21-34) SECONDS Puncture Site pCO2 (35-45) mm/Hg pO2 (80-100) mm/Hg HCO3 (21-28) mmol/L ABG pH (7.35-7.45) ABG Total CO2 (22-28) mmol/L ABG O2 Saturation (95-98) % ABG Base Excess (-2.0-3.0) mmol/L Brock Test ABG Potassium (3.6-5.2) mmol/L A-a O2 Difference mm/Hg Respiratory Index Sodium (132-148) mmol/l Chloride (98-107) mmol/L Glucose (65-105) mg/dl Lactate (0.7-2.1) mmol/L FiO2 % Potassium (3.6-5.2) mmol/L Carbon Dioxide (22-30) mmol/L Anion Gap (10-20) BUN (7-17) mg/dL Creatinine (0.7-1.2) mg/dL Est GFR ( Amer) Est GFR (Non-Af Amer) POC Glucose (mg/dL) 418 H* (65-110) mg/dL Random Glucose (65-105) mg/dL Hemoglobin A1c (4.2-6.5) % Lactic Acid (0.7-2.1) mmol/L Calcium (8.6-10.4) mg/dl Phosphorus (2.5-4.5) mg/dL Magnesium (1.6-2.3) mg/dL Total Bilirubin (0.2-1.3) mg/dL AST (14-36) U/L ALT (9-52) U/L Alkaline Phosphatase (38-126) U/L Total Protein (6.3-8.3) g/dL Albumin (3.5-5.0) g/dL Globulin (2.2-3.9) gm/dL Albumin/Globulin Ratio (1.0-2.1) Arterial Blood Potassium (3.6-5.2) mmol/L B-Hydroxybutyrate (0.02-0.27) mM Laboratory Results - last 24 hr 12/12/17 12/12/17 12/12/17 14:06 15:04 16:05 WBC RBC Hgb Hct MCV MCH MCHC RDW Plt Count MPV Neut % (Auto) Lymph % (Auto) Ada % (Auto) Eos % (Auto) Baso % (Auto) Neut # (Auto) Lymph # (Auto) Ada # (Auto) Eos # (Auto) Baso # (Auto) Neutrophils % (Manual) Band Neutrophils % Lymphocytes % (Manual) Monocytes % (Manual) Myelocytes % Platelet Estimate APTT Puncture Site pCO2 pO2 HCO3 ABG pH ABG Total CO2 ABG O2 Saturation ABG Base Excess Brock Test ABG Potassium A-a O2 Difference Respiratory Index Sodium Chloride Glucose Lactate FiO2 Potassium Carbon Dioxide Anion Gap BUN Creatinine Est GFR ( Amer) Est GFR (Non-Af Amer) POC Glucose (mg/dL) 418 H* 346 H Random Glucose Hemoglobin A1c Lactic Acid 3.8 H Calcium Phosphorus Magnesium Total Bilirubin AST ALT Alkaline Phosphatase Total Protein Albumin Globulin Albumin/Globulin Ratio Arterial Blood Potassium B-Hydroxybutyrate 12/12/17 12/12/17 12/13/17 19:44 23:23 04:05 WBC RBC Hgb Hct MCV MCH MCHC RDW Plt Count MPV Neut % (Auto) Lymph % (Auto) Ada % (Auto) Eos % (Auto) Baso % (Auto) Neut # (Auto) Lymph # (Auto) Ada # (Auto) Eos # (Auto) Baso # (Auto) Neutrophils % (Manual) Band Neutrophils % Lymphocytes % (Manual) Monocytes % (Manual) Myelocytes % Platelet Estimate APTT Puncture Site pCO2 pO2 HCO3 ABG pH ABG Total CO2 ABG O2 Saturation ABG Base Excess Brock Test ABG Potassium A-a O2 Difference Respiratory Index Sodium Chloride Glucose Lactate FiO2 Potassium Carbon Dioxide Anion Gap BUN Creatinine Est GFR ( Amer) Est GFR (Non-Af Amer) POC Glucose (mg/dL) 346 H 268 H 255 H Random Glucose Hemoglobin A1c Lactic Acid Calcium Phosphorus Magnesium Total Bilirubin AST ALT Alkaline Phosphatase Total Protein Albumin Globulin Albumin/Globulin Ratio Arterial Blood Potassium B-Hydroxybutyrate 12/13/17 12/13/17 12/13/17 04:57 05:35 05:35 WBC 9.1 RBC 3.48 L Hgb 10.0 L D Hct 29.7 L MCV 85.2 MCH 28.9 MCHC 33.8 RDW 13.3 Plt Count 163 MPV 8.3 Neut % (Auto) 86.3 H Lymph % (Auto) 5.1 L Ada % (Auto) 7.6 Eos % (Auto) 0.6 Baso % (Auto) 0.4 Neut # (Auto) 7.8 H Lymph # (Auto) 0.5 L Ada # (Auto) 0.7 Eos # (Auto) 0.1 Baso # (Auto) 0.0 Neutrophils % (Manual) 60 Band Neutrophils % 22 H* Lymphocytes % (Manual) 13 L Monocytes % (Manual) 4 Myelocytes % 1 H Platelet Estimate Normal APTT 32 Puncture Site Rb pCO2 33 L pO2 65 L HCO3 22.5 ABG pH 7.41 ABG Total CO2 21.9 L ABG O2 Saturation 95.9 ABG Base Excess -2.9 L Brock Test Na ABG Potassium 3.3 L A-a O2 Difference 43.0 Respiratory Index 0.7 Sodium 137.0 Chloride 109.0 H Glucose 244 H Lactate 1.0 FiO2 21.0 Potassium Carbon Dioxide Anion Gap BUN Creatinine Est GFR ( Amer) Est GFR (Non-Af Amer) POC Glucose (mg/dL) Random Glucose Hemoglobin A1c Lactic Acid Calcium Phosphorus Magnesium Total Bilirubin AST ALT Alkaline Phosphatase Total Protein Albumin Globulin Albumin/Globulin Ratio Arterial Blood Potassium 3.3 L B-Hydroxybutyrate 12/13/17 12/13/17 12/13/17 05:35 05:35 08:20 WBC RBC Hgb Hct MCV MCH MCHC RDW Plt Count MPV Neut % (Auto) Lymph % (Auto) Ada % (Auto) Eos % (Auto) Baso % (Auto) Neut # (Auto) Lymph # (Auto) Ada # (Auto) Eos # (Auto) Baso # (Auto) Neutrophils % (Manual) Band Neutrophils % Lymphocytes % (Manual) Monocytes % (Manual) Myelocytes % Platelet Estimate APTT Puncture Site pCO2 pO2 HCO3 ABG pH ABG Total CO2 ABG O2 Saturation ABG Base Excess Brock Test ABG Potassium A-a O2 Difference Respiratory Index Sodium 139 Chloride 106 Glucose Lactate FiO2 Potassium 3.5 L Carbon Dioxide 21 L Anion Gap 16 BUN 19 H Creatinine 1.5 H Est GFR ( Amer) 45 Est GFR (Non-Af Amer) 37 POC Glucose (mg/dL) 239 H Random Glucose 235 H Hemoglobin A1c 11.2 H Lactic Acid Calcium 7.5 L Phosphorus 2.9 Magnesium 1.6 Total Bilirubin 0.5 AST 17 ALT 26 Alkaline Phosphatase 55 Total Protein 6.5 Albumin 3.4 L D Globulin 3.2 Albumin/Globulin Ratio 1.1 Arterial Blood Potassium B-Hydroxybutyrate 1.22 H 12/13/17 11:33 WBC RBC Hgb Hct MCV MCH MCHC RDW Plt Count MPV Neut % (Auto) Lymph % (Auto) Ada % (Auto) Eos % (Auto) Baso % (Auto) Neut # (Auto) Lymph # (Auto) Ada # (Auto) Eos # (Auto) Baso # (Auto) Neutrophils % (Manual) Band Neutrophils % Lymphocytes % (Manual) Monocytes % (Manual) Myelocytes % Platelet Estimate APTT Puncture Site pCO2 pO2 HCO3 ABG pH ABG Total CO2 ABG O2 Saturation ABG Base Excess Brock Test ABG Potassium A-a O2 Difference Respiratory Index Sodium Chloride Glucose Lactate FiO2 Potassium Carbon Dioxide Anion Gap BUN Creatinine Est GFR ( Amer) Est GFR (Non-Af Amer) POC Glucose (mg/dL) 296 H Random Glucose Hemoglobin A1c Lactic Acid Calcium Phosphorus Magnesium Total Bilirubin AST ALT Alkaline Phosphatase Total Protein Albumin Globulin Albumin/Globulin Ratio Arterial Blood Potassium B-Hydroxybutyrate Critical Care Progress Note - Nutrition Nutrition: Nutrition Category Date Time Status Diabetic [Consistent Carbohydrate] [DIET] Diets 12/12/17 Dinner Active Attending/Attestation - Attestation I have personally seen and examined this patient.: Yes I have fully participated in the care of the patient.: Yes I have reviewed all pertinent clinical information: Yes Notes (Text): 12/13/17 15:26 I have seen and examined the patient. Medical records, lab studies, and imaging were reviewed by me and a management plan was formulated on multidisciplinary rounds with resident Dr. Mejia. I agree with their documented assessment and plan. Treating patient for empysematous pyelonephritis with fluids and abx, Meropenem and Aztreonam. Clinically stable, wbc downtrending. Critical Care Time 35 minutes. Multi-disciplinary rounds were performed with house staff, nursing, speech therapy, respiratory therapy, pharmacy and nutrition with integrated input from the primary team/attending and other consulting services. The documented time is cumulative and includes review of patient data/exams/labs/chart review and examination of the patient on rounds and throughout the day; time is exclusive of any procedures or teaching time.
--- NOTE | 2017-12-13 17:00 | CARD ---
APPROVED REPORT Date of service: 12/13/2017 EXAM: Two-dimensional and M-mode echocardiogram with Doppler and color Doppler. Other Information Quality : GoodRhythm : INDICATION Infection:Rule out subacute bacterial endocarditis 2D DIMENSIONS IVSd0.8 (0.7-1.1cm)LVDd4.1 (3.9-5.9cm) PWd0.7 (0.7-1.1cm)LVDs2.5 (2.5-4.0cm) FS (%) 39.4 %LVEF (%)70.4 (>50%) M-Mode DIMENSIONS Left Atrium (MM)3.37 (2.5-4.0cm)IVSd0.92 (0.7-1.1cm) Aortic Root3.39 (2.2-3.7cm)LVDd4.86 (4.0-5.6cm) Aortic Cusp Exc.1.93 (1.5-2.0cm)PWd0.70 (0.7-1.1cm) FS (%) 33 %LVDs3.25 (2.0-3.8cm) LVEF (%)62 (>50%) Mitral Valve MV E Vchuthzp33.1cm/sMV A Hvpyyniy987.4cm/sE/A ratio1.0 TDI E/Lateral E'0.0E/Medial E'0.0 Tricuspid Valve TR Peak [id number]/sTR Peak [id number] LEFT VENTRICLE The left ventricle is normal size. There is normal left ventricular wall thickness. The left ventricular function is normal. The left ventricular ejection fraction is within the normal range. There is normal LV segmental wall motion. Transmitral Doppler flow pattern is Grade I-abnormal relaxation pattern. RIGHT VENTRICLE The right ventricle is normal size. There is normal right ventricular wall thickness. The right ventricular systolic function is normal. ATRIA The left atrium size is normal. The right atrium size is normal. AORTIC VALVE The aortic valve is thickened but opens well.Cannot exclude aortic valvular vegetation. No aortic regurgitation is present. There is no aortic valvular stenosis. Cannot exclude aortic valvular vegetation. MITRAL VALVE The mitral valve is mildly thickened. There is no evidence of mitral valve prolapse. There is no mitral valve stenosis. There is no mitral valve regurgitation noted. TRICUSPID VALVE The tricuspid valve is normal in structure. There is mild tricuspid regurgitation. There is mild pulmonary hypertension. PULMONIC VALVE There is trace pulmonic valvular regurgitation. GREAT VESSELS The aortic root is normal in size. The IVC is normal in size and collapses >50% with inspiration. PERICARDIAL EFFUSION There is no pericardial effusion. <Conclusion> The left ventricle is normal size. There is normal left ventricular wall thickness. The left ventricular function is normal. The left ventricular ejection fraction is within the normal range. There is normal LV segmental wall motion. Transmitral Doppler flow pattern is Grade I-abnormal relaxation pattern. The aortic valve is thickened but opens well.Cannot exclude aortic valvular vegetation. There is mild tricuspid regurgitation. There is mild pulmonary hypertension.
--- NOTE | 2017-12-13 17:54 | CARD ---
APPROVED REPORT Date of service: 12/12/2017 EKG Measurement Heart [id number] <Conclusion> Sinus tachycardia with short KS Nonspecific T wave abnormality Abnormal ECG
--- NOTE | 2017-12-13 19:35 | CP.PCM.CON ---
History of Present Illness - History of Present Illness History of Present Illness: dictated Past Patient History - Infectious Disease Hx of Infectious Diseases: None - Past Medical History & Family History Past Medical History?: Yes - Past Social History Smoking Status: Never Smoked - CARDIAC Hx Hypercholesterolemia: Yes Hx Hypertension: Yes - HEENT Hx Cataracts: Yes (both eyes) - ENDOCRINE/METABOLIC Hx Diabetes Mellitus Type 2: Yes Hx Hypothyroidism: Yes - MUSCULOSKELETAL/RHEUMATOLOGICAL Hx Falls: No - GASTROINTESTINAL Hx Gastritis: Yes - PSYCHIATRIC Hx Substance Use: No - SURGICAL HISTORY Hx Surgeries: Yes Other/Comment: right eye cataract surgery - ANESTHESIA Hx Anesthesia: Yes Hx Anesthesia Reactions: No Hx Malignant Hyperthermia: No Meds Allergies/Adverse Reactions: Allergies Allergy/AdvReac Type Severity Reaction Status Date / Time No Known Allergies Allergy Verified 12/12/17 11:36 - Medications Medications: Current Medications Acetaminophen (Tylenol 325mg Tab) 650 mg PO Q6 PRN PRN Reason: Fever >100.4 F Last Admin: 12/13/17 15:53 Dose: 650 mg Heparin Sodium (Porcine) (Heparin) 5,000 units SC Q12 [facility] Last Admin: 12/13/17 09:07 Dose: 5,000 units Sodium Chloride (Sodium Chloride 0.9%) 1,000 mls @ 125 mls/hr IV .Q8H [facility] Last Admin: 12/13/17 14:59 Dose: 125 mls/hr Aztreonam 1 gm/ Sodium (Chloride) 100 mls @ 200 mls/hr IVPB Q8H [facility] PRN Reason: Protocol Last Admin: 12/13/17 15:53 Dose: 200 mls/hr Meropenem 1 gm/ Sodium (Chloride) 100 mls @ 100 mls/hr IVPB Q8H [facility] PRN Reason: Protocol Last Admin: 12/13/17 17:38 Dose: 100 mls/hr Insulin Aspart (Novolog) 0 unit SC ACHS [facility] PRN Reason: Protocol Last Admin: 12/13/17 16:37 Dose: 6 units Morphine Sulfate (Morphine) 2 mg IVP Q4 PRN PRN Reason: Pain, moderate (4-7) Last Admin: 12/13/17 11:39 Dose: 2 mg Ondansetron HCl (Zofran Inj) 4 mg IVP Q6 PRN PRN Reason: Nausea/Vomiting Last Admin: 12/13/17 16:15 Dose: 4 mg Tamsulosin HCl (Flomax) 0.4 mg PO DAILY [facility] Last Admin: 12/13/17 09:07 Dose: 0.4 mg Results - Vital Signs Recent Vital Signs: Last Vital Signs Temp 99.2 F 12/13/17 16:57 Pulse 100 H 12/13/17 19:03 Resp 23 12/13/17 19:03 BP 116/75 12/13/17 19:03 Pulse Ox 95 12/13/17 19:03 - Labs Result Diagrams: 12/13/17 05:35 12/13/17 05:35 Labs: Laboratory Results - last 24 hr 12/12/17 12/12/17 12/12/17 14:06 19:44 23:23 WBC RBC Hgb Hct MCV MCH MCHC RDW Plt Count MPV Neut % (Auto) Lymph % (Auto) Kimball % (Auto) Eos % (Auto) Baso % (Auto) Neut # (Auto) Lymph # (Auto) Kimball # (Auto) Eos # (Auto) Baso # (Auto) Neutrophils % (Manual) Band Neutrophils % Lymphocytes % (Manual) Monocytes % (Manual) Myelocytes % Platelet Estimate APTT Puncture Site pCO2 pO2 HCO3 ABG pH ABG Total CO2 ABG O2 Saturation ABG Base Excess Brock Test ABG Potassium A-a O2 Difference Respiratory Index Sodium Chloride Glucose Lactate FiO2 Potassium Carbon Dioxide Anion Gap BUN Creatinine Est GFR ( Amer) Est GFR (Non-Af Amer) POC Glucose (mg/dL) 418 H* 346 H 268 H Random Glucose Hemoglobin A1c Calcium Phosphorus Magnesium Total Bilirubin AST ALT Alkaline Phosphatase Total Protein Albumin Globulin Albumin/Globulin Ratio Arterial Blood Potassium B-Hydroxybutyrate 12/13/17 12/13/17 12/13/17 04:05 04:57 05:35 WBC RBC Hgb Hct MCV MCH MCHC RDW Plt Count MPV Neut % (Auto) Lymph % (Auto) [place]ball % (Auto) Eos % (Auto) Baso % (Auto) Neut # (Auto) Lymph # (Auto) Kimball # (Auto) Eos # (Auto) Baso # (Auto) Neutrophils % (Manual) Band Neutrophils % Lymphocytes % (Manual) Monocytes % (Manual) Myelocytes % Platelet Estimate APTT 32 Puncture Site Rb pCO2 33 L pO2 65 L HCO3 22.5 ABG pH 7.41 ABG Total CO2 21.9 L ABG O2 Saturation 95.9 ABG Base Excess -2.9 L Brock Test Na ABG Potassium 3.3 L A-a O2 Difference 43.0 Respiratory Index 0.7 Sodium 137.0 Chloride 109.0 H Glucose 244 H Lactate 1.0 FiO2 21.0 Potassium Carbon Dioxide Anion Gap BUN Creatinine Est GFR ( Amer) Est GFR (Non-Af Amer) POC Glucose (mg/dL) 255 H Random Glucose Hemoglobin A1c Calcium Phosphorus Magnesium Total Bilirubin AST ALT Alkaline Phosphatase Total Protein Albumin Globulin Albumin/Globulin Ratio Arterial Blood Potassium 3.3 L B-Hydroxybutyrate 12/13/17 12/13/17 12/13/17 05:35 05:35 05:35 WBC 9.1 RBC 3.48 L Hgb 10.0 L D Hct 29.7 L MCV 85.2 MCH 28.9 MCHC 33.8 RDW 13.3 Plt Count 163 MPV 8.3 Neut % (Auto) 86.3 H Lymph % (Auto) 5.1 L [place]ball % (Auto) 7.6 Eos % (Auto) 0.6 Baso % (Auto) 0.4 Neut # (Auto) 7.8 H Lymph # (Auto) 0.5 L [place]ball # (Auto) 0.7 Eos # (Auto) 0.1 Baso # (Auto) 0.0 Neutrophils % (Manual) 60 Band Neutrophils % 22 H* Lymphocytes % (Manual) 13 L Monocytes % (Manual) 4 Myelocytes % 1 H Platelet Estimate Normal APTT Puncture Site pCO2 pO2 HCO3 ABG pH ABG Total CO2 ABG O2 Saturation ABG Base Excess Brock Test ABG Potassium A-a O2 Difference Respiratory Index Sodium 139 Chloride 106 Glucose Lactate FiO2 Potassium 3.5 L Carbon Dioxide 21 L Anion Gap 16 BUN 19 H Creatinine 1.5 H Est GFR ( Amer) 45 Est GFR (Non-Af Amer) 37 POC Glucose (mg/dL) Random Glucose 235 H Hemoglobin A1c 11.2 H Calcium 7.5 L Phosphorus 2.9 Magnesium 1.6 Total Bilirubin 0.5 AST 17 ALT 26 Alkaline Phosphatase 55 Total Protein 6.5 Albumin 3.4 L D Globulin 3.2 Albumin/Globulin Ratio 1.1 Arterial Blood Potassium B-Hydroxybutyrate 1.22 H 12/13/17 12/13/17 12/13/17 08:20 11:33 16:26 WBC RBC Hgb Hct MCV MCH MCHC RDW Plt Count MPV Neut % (Auto) Lymph % (Auto) Kimball % (Auto) Eos % (Auto) Baso % (Auto) Neut # (Auto) Lymph # (Auto) Kimball # (Auto) Eos # (Auto) Baso # (Auto) Neutrophils % (Manual) Band Neutrophils % Lymphocytes % (Manual) Monocytes % (Manual) Myelocytes % Platelet Estimate APTT Puncture Site pCO2 pO2 HCO3 ABG pH ABG Total CO2 ABG O2 Saturation ABG Base Excess Brock Test ABG Potassium A-a O2 Difference Respiratory Index Sodium Chloride Glucose Lactate FiO2 Potassium Carbon Dioxide Anion Gap BUN Creatinine Est GFR ( Amer) Est GFR (Non-Af Amer) POC Glucose (mg/dL) 239 H 296 H 246 H Random Glucose Hemoglobin A1c Calcium Phosphorus Magnesium Total Bilirubin AST ALT Alkaline Phosphatase Total Protein Albumin Globulin Albumin/Globulin Ratio Arterial Blood Potassium B-Hydroxybutyrate
--- NOTE | 2017-12-13 21:01 | CP.PCM.PN ---
Subjective - Date & Time of Evaluation Date of Evaluation: 12/13/17 Time of Evaluation: 11:00 - Subjective Subjective: clinically same Objective - Vital Signs/Intake and Output Vital Signs (last 24 hours): Temp Pulse Resp BP Pulse Ox 99.2 F 119 H 23 125/78 94 L 12/13/17 20:00 12/13/17 20:04 12/13/17 19:03 12/13/17 20:04 12/13/17 20:04 Intake and Output: 12/13/17 12/14/17 18:59 06:59 Intake Total 2300 250 Output Total 1222 200 Balance 1078 50 - Medications Medications: Current Medications Acetaminophen (Tylenol 325mg Tab) 650 mg PO Q6 PRN PRN Reason: Fever >100.4 F Last Admin: 12/13/17 15:53 Dose: 650 mg Heparin Sodium (Porcine) (Heparin) 5,000 units SC Q12 [facility] Last Admin: 12/13/17 09:07 Dose: 5,000 units Sodium Chloride (Sodium Chloride 0.9%) 1,000 mls @ 125 mls/hr IV .Q8H [facility] Last Admin: 12/13/17 14:59 Dose: 125 mls/hr Aztreonam 1 gm/ Sodium (Chloride) 100 mls @ 200 mls/hr IVPB Q8H BARRY PRN Reason: Protocol Last Admin: 12/13/17 15:53 Dose: 200 mls/hr Meropenem 1 gm/ Sodium (Chloride) 100 mls @ 100 mls/hr IVPB Q8H BARRY PRN Reason: Protocol Last Admin: 12/13/17 17:38 Dose: 100 mls/hr Insulin Aspart (Novolog) 0 unit SC ACHS [facility] PRN Reason: Protocol Last Admin: 12/13/17 16:37 Dose: 6 units Morphine Sulfate (Morphine) 2 mg IVP Q4 PRN PRN Reason: Pain, moderate (4-7) Last Admin: 12/13/17 20:18 Dose: 2 mg Ondansetron HCl (Zofran Inj) 4 mg IVP Q6 PRN PRN Reason: Nausea/Vomiting Last Admin: 12/13/17 16:15 Dose: 4 mg Tamsulosin HCl (Flomax) 0.4 mg PO DAILY [facility] Last Admin: 12/13/17 09:07 Dose: 0.4 mg - Labs Labs: 12/13/17 05:35 12/13/17 05:35 PT 16.0 SECONDS (9.7-12.2) H 12/12/17 12:12 INR 1.5 12/12/17 12:12 APTT 32 SECONDS (21-34) 12/13/17 05:35 - Constitutional Appears: Well - Head Exam Head Exam: ATRAUMATIC, NORMAL INSPECTION, NORMOCEPHALIC - Eye Exam Eye Exam: EOMI, Normal appearance, PERRL Pupil Exam: NORMAL ACCOMODATION, PERRL - ENT Exam ENT Exam: Mucous Membranes Moist, Normal Exam - Neck Exam Neck Exam: Full ROM, Normal Inspection. absent: Lymphadenopathy - Respiratory Exam Respiratory Exam: Decreased Breath Sounds - Cardiovascular Exam Cardiovascular Exam: REGULAR RHYTHM, +S1, +S2 - GI/Abdominal Exam GI & Abdominal Exam: Soft, Diminished Bowel Sounds - Rectal Exam Rectal Exam: Deferred
--- NOTE | 2017-12-13 22:09 | PN ---
DATE: 12/13/2017 FOLLOWUP INTENSIVE CARE UNIT NOTE DIAGNOSES: Left emphysematous pyelonephritis and a 3-mm left ureterovesical junction stone. SUBJECTIVE: The patient is resting much more comfortably today. No complaint of pain. Just nausea. She did spike temperature to 102. Her IV antibiotics were changed from Zosyn to meropenem. LABORATORY DATA: Her laboratory evaluation has markedly improved. CBC: WBC count is now down to 9.1, hemoglobin is 10, hematocrit is 29.7 with a platelet count of 163,000. Her chem profile shows a sodium of 139, potassium 3.5, chloride 106, CO2 of 21, BUN and creatinine 19 and 1.5 respectively with a GFR of 37, indicating chronic kidney disease stage 3. Her glucose is still elevated at 246 at this hour. Calcium is 7.5. Hemoglobin A1c is 11.2. Urine culture is positive for gram-negative rods. PHYSICAL EXAMINATION: ABDOMEN: Soft, nondistended, nontender. No CVA tenderness and no suprapubic tenderness. DIAGNOSTIC IMPRESSION: For this patient is: 1. Left emphysematous pyelonephritis. 2. Left 3-mm ureterovesical junction stone without hydronephrosis. PLAN: Plan for this patient is just to continue the patient on Flomax 0.4 mg daily. Strain all her urine for stones. Continue the patient on IV antibiotics. Rocky Cruz MD
[2017-12-14] MEDS: Aztreonam 1 GM in Sodium Chloride 0.9% 100 ML IVPB SCH ×3 (00:34→16:44)
[2017-12-14] MEDS: Sodium Chloride 0.9% 1,000 ML IV SCH ×3 (00:35→10:20)
[2017-12-14] MEDS: Meropenem 1 GM in Sodium Chloride 0.9% 100 ML IVPB SCH ×3 (02:41→18:19)
[2017-12-14 06:18] LABS: BASO % 0.2 % (0.0-2.0); EOS % 0.1 % (0.0-4.0); HEMOGLOBIN 9.6 g/dL (11.0-16.0); LYMPH # 0.5 K/uL (1.0-4.3); LYMPH % 6.4 % (20.0-40.0); MEAN CELL VOLUME 85.4 fL (81.0-99.0); MEAN CORPUSCULAR HEMOGLOBIN 29.3 pg (27.0-31.0); MEAN CORPUSCULAR HGB CONC 34.3 g/dL (33.0-37.0); MEAN PLATELET VOLUME 8.5 fL (7.2-11.7); MONO # 0.7 K/uL (0.0-0.8); MONO % 10.3 % (0.0-10.0); PLATELET COUNT 171 K/uL (130-400); RBC 3.29 Mil/uL (3.80-5.20); RED CELL DISTRIBUTION WIDTH 13.5 % (11.5-14.5); WHITE BLOOD COUNT 7.3 K/uL (4.8-10.8)
[2017-12-14 06:42] LABS: ALB/GLOB RATIO 0.9 (1.0-2.1); ALBUMIN 3.5 g/dL (3.5-5.0); CALCIUM 7.8 mg/dl (8.6-10.4)
[2017-12-14] MEDS ORDERED: DiphenhydrAMINE 50 mg/ml Inj IVP PRN (07:00)
--- NOTE | 2017-12-14 07:26 | CON ---
DATE: 12/13/2017 INFECTIOUS DISEASE CONSULT REQUESTED BY: Perfecto Jernigan MD HISTORY OF PRESENT ILLNESS: This patient is a 47-year-old female. She has history of hypertension, gastritis. She says she has had pyelonephritis before and she has had antibiotics and she was here not too long ago and she says in April. In April she was here, and she has had infection in the kidney before. She does suffer from kidney stones and she said she was placed on some medicine by her doctor and now comes with nausea and vomiting and diarrhea, had multiple episodes of vomiting. She denied any fever, chest pain, or shortness of breath but she did have a high fever, abdominal pain and she was having nausea and vomiting and she is diabetic. So, she was in the ICU. I was called this morning and later on, I was called again that the blood cultures came out positive. We already changed her to Merrem and Azactam. Her kidney showed some renal insufficiency which is probably ATN but at this time, I have put her on full dose of antibiotics that the nurse said she was sick looking and was having severe abdominal pain, came in with chills, nausea, vomiting. She denied fever or back pain, but now when I saw her that she was having an echo done which I had ordered and she was having mild left flank pain. In the ER, she had temperature was 101.8, so she did had a fever. She was on ceftriaxone, which I have changed to Merrem and Azactam at this time. Her white count was 14.5 and her sugar was 539 with lactic acid. So, she was in DKA and DKA probably because she was acidotic and septic. Her drug screen was negative. I was not able to ask her much as they were doing the echo, but she has history of hypercholesterolemia, hypertension. Endocrine ayers, she has hypothyroidism. She also has high sugar now. She is diabetic. She gives a history of having eye surgery, right eye cataract surgery. Other than that she denied any other surgeries and has a history of gastritis, no falls, suffers from anxiety, substance abuse, and she has no history of any other surgeries, but has had UTIs and kidney infection in the past. Does gave history of stones. PAST MEDICAL HISTORY: Anxiety, gastritis, hypertension, hypercholesterolemia and hypothyroidism. FAMILY HISTORY: Unknown. SOCIAL HISTORY: Negative for smoking or drinking or any drug abuse. She denied any other problems at this time. PHYSICAL EXAMINATION: VITAL SIGNS: I find her temperature, T-max was 102; heart rate of 110; blood pressure was 123/71; respirations were 26. She was acidotic and at the time I am writing this note, her heart rate is 100. HEENT: Head is atraumatic, normocephalic. Pupils are reacting to light. No pallor present. Tongue is moist. NECK: Supple. JVP is flat. LUNGS: Clear. No crackles or rales present. HEART: S1, S2 is tachycardic. ABDOMEN: Soft, nontender. No guarding, no rigidity present at this time. Left CVA tenderness present. EXTREMITIES: Have no edema, clubbing or cyanosis noted. LABORATORY DATA AND IMAGING STUDIES: Labs are noted. Labs show white count was 14.5 before, it is 9.1; hemoglobin is 10; hematocrit 29.7; platelet count is 163, it was 260 before. PT/INR, INR is 1.5. She had a blood gas which showed pH of 7.32, CO2 of 42, bicarb was 19.7 and lactate level was 7.5 and glucose was 528, so was very high, but the pH was 7.32. She is not in ketoacidosis but still has acidosis. Now her potassium is 3.5. Serum creatinine is 1.5 and urine showed 2+ protein, 3+ glucose, 1+ketones, 2+ blood, leukocyte esterase 2+, wbc 106, so she is in DKA. Blood cultures x2 are negative. Gram-negative rods in blood and urine all are growing. We checked the CAT scan abdomen and pelvis which within the left renal collecting system, etiology which is unclear though it could be secondary to recent instrumentation versus infection with gas forming organisms, emphysematous pyelonephritis. There has been an increase in the amount of perinephric infiltration and small amount of presumed perinephric fluid. There is small approximate 3 mm calcification in the pelvic dorsum and nearly abutting the posterior margin of the urinary bladder which appears to be located near the expected location of the left ureteral orifice. It is unclear whether this is within the left UVJ while there is no evidence of hydronephrosis. Consider retrograde studies for followup evaluation, so she needs a urologist to look into this. ASSESSMENT AND PLAN: She has gram-negative septicemia with urinary tract infection with pyelonephritis by probably air producing bacteria, emphysematous pyelonephritis which is worse than the other ones. At this time, we will continue with the Merrem as well as Azactam and we will follow the creatinine level and to follow the recommendations of the urologist. We will follow. Denver Gant MD
[2017-12-14 08:44] LABS: BANDS 15 % (0-2); LYMPHOCYTE 6 % (20-40); MONOCYTE 7 % (0-10); NEUTROPHIL 72 % (50-75); PLATELET CLUMPS PRESENT; PLATELET ESTIMATE NORMAL (NORMAL); TOTAL CELLS COUNTED 100
[2017-12-14] MEDS: (Novolog) Insulin Aspart, Recombinant 100 u/ml 10 ml vial SC SCH ×4 (09:27→21:33)
[2017-12-14] MEDS ORDERED: Pneumococcal 23-Valent Vaccine SC ONE (10:00)
[2017-12-14] MEDS ORDERED: Sodium Phosphate 15 MMOLE in Sodium Chloride 0.9% 250 ML IVPB ONE (10:30)
--- NOTE | 2017-12-14 14:36 | CP.CCUPN ---
CCU Subjective - Physician Review Events Since Last Encounter (Free Text): 12/14/17 14:33 complains of intermittent headache, she gets them commonly at home. CCU Objective - Vital Signs / Intake & Output Vital Signs (Last 4 hours): Vital Signs Temp Pulse Resp BP Pulse Ox 12/14/17 13:03 115 H 29 H 158/93 H 93 L 12/14/17 13:00 115 H 19 95 12/14/17 12:03 112 H 27 H 147/91 H 94 L 12/14/17 12:00 99.7 F H 117 H 22 95 12/14/17 11:03 108 H 22 139/84 93 L 12/14/17 11:00 108 H 23 94 L Intake and Output (Last 8hrs): Intake & Output 12/13/17 12/14/17 12/14/17 22:59 06:59 14:59 Intake Total 1400 1233 1130 Output Total 700 200 Balance 700 1033 1130 Weight 130 lb Intake: Intake, IV Amount 950 1013 650 Left Antecubital 950 1013 650 Oral 450 220 480 Output: Urine 700 200 Urine, Voided 700 200 Other: # Voids Urine, Voided 0 1 1 # Bowel Movements 0 1 0 - Physical Exam Head: Positive for: Atraumatic, Normocephalic Extroacular Muscles: Positive for: EOMI Mouth: Positive for: Moist Mucous Membranes Respiratory/Chest: Positive for: Clear to Auscultation, Good Air Exchange. Negative for: Respiratory Distress, Accessory Muscle Use Cardiovascular: Positive for: Tachycardic Abdomen: Positive for: Tenderness, Normal Bowel Sounds Neurological: Positive for: GCS=15 Skin: Positive for: Warm Psychiatric: Positive for: Oriented x 3, Anxious - Medications Active Medications: Active Medications Generic Name Dose Route Start Last Admin Trade Name Freq PRN Reason Stop Dose Admin Acetaminophen 650 mg 12/13/17 15:44 12/14/17 00:35 Tylenol 325mg Tab PO 650 mg Q6 PRN Administration Fever >100.4 F Heparin Sodium (Porcine) 5,000 units 12/12/17 22:00 12/14/17 09:28 Heparin SC 5,000 units Q12 [facility] Administration Aztreonam 1 gm/ Sodium 100 mls @ 200 mls/hr 12/13/17 08:30 12/14/17 08:35 Chloride IVPB 200 mls/hr Q8H [facility] Administration Protocol Meropenem 1 gm/ Sodium 100 mls @ 100 mls/hr 12/13/17 10:00 12/14/17 10:19 Chloride IVPB 100 mls/hr Q8H [facility] Administration Protocol Sodium Phosphate 15 mmole/ 255 mls @ 50 mls/hr 12/14/17 10:30 12/14/17 12:34 Sodium Chloride IVPB 12/14/17 15:35 50 mls/hr .Q5H6M ONE Administration Sodium Chloride 1,000 mls @ 75 mls/hr 12/14/17 10:06 12/14/17 10:20 Sodium Chloride 0.9% IV 75 mls/hr .[id number] [facility] Administration Ibuprofen 400 mg 12/14/17 13:30 12/14/17 13:46 Motrin Tab PO 400 mg Q6H PRN Administration Headache Insulin Aspart 0 unit 12/13/17 11:30 12/14/17 12:37 Novolog SC 10 units ACHS [facility] Administration Protocol Ondansetron HCl 4 mg 12/12/17 16:42 12/14/17 08:46 Zofran Inj IVP 4 mg Q6 PRN Administration Nausea/Vomiting Tamsulosin HCl 0.4 mg 12/13/17 10:00 12/14/17 09:28 Flomax PO 0.4 mg DAILY [facility] Administration - Patient Studies Lab Studies: Microbiology Studies 12/12/17 13:52 Urine Culture - Final Urine,Random Escherichia Coli 12/12/17 17:22 Blood Culture - Preliminary Blood Gram Negative Maurisio Gram Stain - Final 12/12/17 17:22 Blood Culture - Preliminary Blood Gram Negative Maurisio Gram Stain - Final Lab Studies 12/14/17 12/14/17 12/14/17 Range/Units 07:22 06:05 04:00 WBC 7.3 (4.8-10.8) K/uL RBC 3.29 L (3.80-5.20) Mil/uL Hgb 9.6 L (11.0-16.0) g/dL Hct 28.1 L (34.0-47.0) % MCV 85.4 (81.0-99.0) fL MCH 29.3 (27.0-31.0) pg MCHC 34.3 (33.0-37.0) g/dL RDW 13.5 (11.5-14.5) % Plt Count 171 (130-400) K/uL MPV 8.5 (7.2-11.7) fL Neut % (Auto) 83.0 H (50.0-75.0) % Lymph % (Auto) 6.4 L (20.0-40.0) % [place] % (Auto) 10.3 H (0.0-10.0) % Eos % (Auto) 0.1 (0.0-4.0) % Baso % (Auto) 0.2 (0.0-2.0) % Neut # (Auto) 6.0 (1.8-7.0) K/uL Lymph # (Auto) 0.5 L (1.0-4.3) K/uL [place] # (Auto) 0.7 (0.0-0.8) K/uL Eos # (Auto) 0.0 (0.0-0.7) K/uL Baso # (Auto) 0.0 (0.0-0.2) K/uL Neutrophils % (Manual) 72 (50-75) % Band Neutrophils % 15 H* (0-2) % Lymphocytes % (Manual) 6 L (20-40) % Monocytes % (Manual) 7 (0-10) % Platelet Estimate Normal (NORMAL) Plt Clumps, EDTA Present RBC Morphology Normal Sodium 139 (132-148) mmol/L Potassium 3.8 (3.6-5.2) mmol/L Chloride 105 (98-107) mmol/L Carbon Dioxide 21 L (22-30) mmol/L Anion Gap 17 (10-20) BUN 15 (7-17) mg/dL Creatinine 1.2 (0.7-1.2) mg/dL Est GFR ( Amer) 58 Est GFR (Non-Af Amer) 48 POC Glucose (mg/dL) 291 H (65-110) mg/dL Random Glucose 227 H (65-105) mg/dL Calcium 7.8 L (8.6-10.4) mg/dl Phosphorus 1.7 L (2.5-4.5) mg/dL Magnesium 1.9 (1.6-2.3) mg/dL Total Bilirubin 0.5 (0.2-1.3) mg/dL AST 26 (14-36) U/L ALT 24 (9-52) U/L Alkaline Phosphatase 85 (38-126) U/L Total Protein 7.2 (6.3-8.3) g/dL Albumin 3.5 (3.5-5.0) g/dL Globulin 3.7 (2.2-3.9) gm/dL Albumin/Globulin Ratio 0.9 L (1.0-2.1) 12/13/17 12/13/17 Range/Units 21:30 16:26 WBC (4.8-10.8) K/uL RBC (3.80-5.20) Mil/uL Hgb (11.0-16.0) g/dL Hct (34.0-47.0) % MCV (81.0-99.0) fL MCH (27.0-31.0) pg MCHC (33.0-37.0) g/dL RDW (11.5-14.5) % Plt Count (130-400) K/uL MPV (7.2-11.7) fL Neut % (Auto) (50.0-75.0) % Lymph % (Auto) (20.0-40.0) % [place] % (Auto) (0.0-10.0) % Eos % (Auto) (0.0-4.0) % Baso % (Auto) (0.0-2.0) % Neut # (Auto) (1.8-7.0) K/uL Lymph # (Auto) (1.0-4.3) K/uL [place] # (Auto) (0.0-0.8) K/uL Eos # (Auto) (0.0-0.7) K/uL Baso # (Auto) (0.0-0.2) K/uL Neutrophils % (Manual) (50-75) % Band Neutrophils % (0-2) % Lymphocytes % (Manual) (20-40) % Monocytes % (Manual) (0-10) % Platelet Estimate (NORMAL) Plt Clumps, EDTA RBC Morphology Sodium (132-148) mmol/L Potassium (3.6-5.2) mmol/L Chloride (98-107) mmol/L Carbon Dioxide (22-30) mmol/L Anion Gap (10-20) BUN (7-17) mg/dL Creatinine (0.7-1.2) mg/dL Est GFR ( Amer) Est GFR (Non-Af Amer) POC Glucose (mg/dL) 215 H 246 H (65-110) mg/dL Random Glucose (65-105) mg/dL Calcium (8.6-10.4) mg/dl Phosphorus (2.5-4.5) mg/dL Magnesium (1.6-2.3) mg/dL Total Bilirubin (0.2-1.3) mg/dL AST (14-36) U/L ALT (9-52) U/L Alkaline Phosphatase (38-126) U/L Total Protein (6.3-8.3) g/dL Albumin (3.5-5.0) g/dL Globulin (2.2-3.9) gm/dL Albumin/Globulin Ratio (1.0-2.1) Laboratory Results - last 24 hr 12/13/17 12/13/17 12/14/17 16:26 21:30 04:00 WBC 7.3 RBC 3.29 L Hgb 9.6 L Hct 28.1 L MCV 85.4 MCH 29.3 MCHC 34.3 RDW 13.5 Plt Count 171 MPV 8.5 Neut % (Auto) 83.0 H Lymph % (Auto) 6.4 L [place] % (Auto) 10.3 H Eos % (Auto) 0.1 Baso % (Auto) 0.2 Neut # (Auto) 6.0 Lymph # (Auto) 0.5 L [place] # (Auto) 0.7 Eos # (Auto) 0.0 Baso # (Auto) 0.0 Neutrophils % (Manual) 72 Band Neutrophils % 15 H* Lymphocytes % (Manual) 6 L Monocytes % (Manual) 7 Platelet Estimate Normal Plt Clumps, EDTA Present RBC Morphology Normal Sodium Potassium Chloride Carbon Dioxide Anion Gap BUN Creatinine Est GFR ( Amer) Est GFR (Non-Af Amer) POC Glucose (mg/dL) 246 H 215 H Random Glucose Calcium Phosphorus Magnesium Total Bilirubin AST ALT Alkaline Phosphatase Total Protein Albumin Globulin Albumin/Globulin Ratio 12/14/17 12/14/17 06:05 07:22 WBC RBC Hgb Hct MCV MCH MCHC RDW Plt Count MPV Neut % (Auto) Lymph % (Auto) [place] % (Auto) Eos % (Auto) Baso % (Auto) Neut # (Auto) Lymph # (Auto) [place] # (Auto) Eos # (Auto) Baso # (Auto) Neutrophils % (Manual) Band Neutrophils % Lymphocytes % (Manual) Monocytes % (Manual) Platelet Estimate Plt Clumps, EDTA RBC Morphology Sodium 139 Potassium 3.8 Chloride 105 Carbon Dioxide 21 L Anion Gap 17 BUN 15 Creatinine 1.2 Est GFR ( Amer) 58 Est GFR (Non-Af Amer) 48 POC Glucose (mg/dL) 291 H Random Glucose 227 H Calcium 7.8 L Phosphorus 1.7 L Magnesium 1.9 Total Bilirubin 0.5 AST 26 ALT 24 Alkaline Phosphatase 85 Total Protein 7.2 Albumin 3.5 Globulin 3.7 Albumin/Globulin Ratio 0.9 L Fingerstick Blood Sugar Results: 321 Review of Systems - Review of Systems All systems: reviewed and no additional remarkable complaints except - Neurological Neurological: Headaches Critical Care Progress Note - Nutrition Nutrition: Nutrition Category Date Time Status Diabetic [Consistent Carbohydrate] [DIET] Diets 12/12/17 Dinner Active Assessment/Plan (1) Pyelonephritis Assessment and plan: 47 yo F w/ PMHx of uncontrolled DM2, emphysematous pyelonephritis, recurrent UTIs, anxiety and depression presents to the ED with complaints of nausea/ vomiting/diarrhea/abdominal pain/pelvic pain-L>R. CT positive for emphysematous pyelonephritis. Neuro: alert and oriented x 3 Pulm: no acute issues, breathing spontaneously on room air CV: hemodynamically stable Hem: no acute issues, leucocytosis resolved, still has underlying bandemia. Renal: urine output wnl, monitoring for passing of kidney stones, straining urine. Endo: short acting insulin sliding scale for coverage, qachs GI: diabetic diet ID: sepsis from emphysematous pyelonephritis, continue Meropenem and Aztreonam. E.coli in Blood Cx, awaiting sensitivities. DVT proph - heparin sq GI proph - not currently indicated Code status - full code Critical Care Time spent 35 minutes Multi-disciplinary rounds were performed with house staff, nursing, speech therapy, respiratory therapy, pharmacy and nutrition with integrated input from the primary team/attending and other consulting services. The documented time is cumulative and includes review of patient data/exams/labs/chart review and examination Current Visit: Yes Status: Acute
--- NOTE | 2017-12-14 15:39 | CP.PCM.PN ---
Subjective - Date & Time of Evaluation Date of Evaluation: 12/14/17 Time of Evaluation: 11:15 - Subjective Subjective: clinically same Objective - Vital Signs/Intake and Output Vital Signs (last 24 hours): Temp Pulse Resp BP Pulse Ox 99.7 F H 96 H 21 147/91 H 94 L 12/14/17 12:00 12/14/17 15:00 12/14/17 15:00 12/14/17 14:03 12/14/17 15:00 Intake and Output: 12/14/17 12/14/17 06:59 18:59 Intake Total 1733 1230 Output Total 400 Balance 1333 1230 - Medications Medications: Current Medications Acetaminophen (Tylenol 325mg Tab) 650 mg PO Q6 PRN PRN Reason: Fever >100.4 F Last Admin: 12/14/17 00:35 Dose: 650 mg Heparin Sodium (Porcine) (Heparin) 5,000 units SC Q12 [facility] Last Admin: 12/14/17 09:28 Dose: 5,000 units Aztreonam 1 gm/ Sodium (Chloride) 100 mls @ 200 mls/hr IVPB Q8H [facility] PRN Reason: Protocol Last Admin: 12/14/17 08:35 Dose: 200 mls/hr Meropenem 1 gm/ Sodium (Chloride) 100 mls @ 100 mls/hr IVPB Q8H [facility] PRN Reason: Protocol Last Admin: 12/14/17 10:19 Dose: 100 mls/hr Sodium Chloride (Sodium Chloride 0.9%) 1,000 mls @ 75 mls/hr IV .[id number] [facility] Last Admin: 12/14/17 10:20 Dose: 75 mls/hr Ibuprofen (Motrin Tab) 400 mg PO Q6H PRN PRN Reason: Headache Last Admin: 12/14/17 13:46 Dose: 400 mg Insulin Aspart (Novolog) 0 unit SC ACHS [facility] PRN Reason: Protocol Last Admin: 12/14/17 12:37 Dose: 10 units Lactobacillus Acidophilus (Bacid Acidophilus) 1 cap PO BID [facility] Ondansetron HCl (Zofran Inj) 4 mg IVP Q6 PRN PRN Reason: Nausea/Vomiting Last Admin: 12/14/17 08:46 Dose: 4 mg Tamsulosin HCl (Flomax) 0.4 mg PO DAILY [facility] Last Admin: 12/14/17 09:28 Dose: 0.4 mg - Labs Labs: 12/14/17 04:00 12/14/17 06:05 PT 16.0 SECONDS (9.7-12.2) H 12/12/17 12:12 INR 1.5 12/12/17 12:12 APTT 32 SECONDS (21-34) 12/13/17 05:35 - Constitutional Appears: Well - Head Exam Head Exam: ATRAUMATIC, NORMAL INSPECTION, NORMOCEPHALIC - Eye Exam Eye Exam: EOMI, Normal appearance, PERRL Pupil Exam: NORMAL ACCOMODATION, PERRL - ENT Exam ENT Exam: Mucous Membranes Moist, Normal Exam - Neck Exam Neck Exam: Full ROM, Normal Inspection. absent: Lymphadenopathy - Respiratory Exam Respiratory Exam: Decreased Breath Sounds - Cardiovascular Exam Cardiovascular Exam: REGULAR RHYTHM, +S1, +S2 - GI/Abdominal Exam GI & Abdominal Exam: Soft, Diminished Bowel Sounds - Rectal Exam Rectal Exam: Deferred
--- NOTE | 2017-12-14 15:43 | CP.PCM.PN ---
Subjective - Date & Time of Evaluation Date of Evaluation: 12/14/17 Time of Evaluation: 02:55 - Subjective Subjective: dictated Objective - Vital Signs/Intake and Output Vital Signs (last 24 hours): Temp Pulse Resp BP Pulse Ox 99.7 F H 96 H 21 147/91 H 94 L 12/14/17 12:00 12/14/17 15:00 12/14/17 15:00 12/14/17 14:03 12/14/17 15:00 Intake and Output: 12/14/17 12/14/17 06:59 18:59 Intake Total 1733 1230 Output Total 400 Balance 1333 1230 - Medications Medications: Current Medications Acetaminophen (Tylenol 325mg Tab) 650 mg PO Q6 PRN PRN Reason: Fever >100.4 F Last Admin: 12/14/17 00:35 Dose: 650 mg Heparin Sodium (Porcine) (Heparin) 5,000 units SC Q12 [facility] Last Admin: 12/14/17 09:28 Dose: 5,000 units Aztreonam 1 gm/ Sodium (Chloride) 100 mls @ 200 mls/hr IVPB Q8H [facility] PRN Reason: Protocol Last Admin: 12/14/17 08:35 Dose: 200 mls/hr Meropenem 1 gm/ Sodium (Chloride) 100 mls @ 100 mls/hr IVPB Q8H [facility] PRN Reason: Protocol Last Admin: 12/14/17 10:19 Dose: 100 mls/hr Sodium Chloride (Sodium Chloride 0.9%) 1,000 mls @ 75 mls/hr IV .[id number] [facility] Last Admin: 12/14/17 10:20 Dose: 75 mls/hr Ibuprofen (Motrin Tab) 400 mg PO Q6H PRN PRN Reason: Headache Last Admin: 12/14/17 13:46 Dose: 400 mg Insulin Aspart (Novolog) 0 unit SC ACHS [facility] PRN Reason: Protocol Last Admin: 12/14/17 12:37 Dose: 10 units Lactobacillus Acidophilus (Bacid Acidophilus) 1 cap PO BID [facility] Ondansetron HCl (Zofran Inj) 4 mg IVP Q6 PRN PRN Reason: Nausea/Vomiting Last Admin: 12/14/17 08:46 Dose: 4 mg Tamsulosin HCl (Flomax) 0.4 mg PO DAILY [facility] Last Admin: 12/14/17 09:28 Dose: 0.4 mg - Labs Labs: 12/14/17 04:00 12/14/17 06:05 PT 16.0 SECONDS (9.7-12.2) H 12/12/17 12:12 INR 1.5 12/12/17 12:12 APTT 32 SECONDS (21-34) 12/13/17 05:35
[2017-12-14] MEDS: Lactobacillus Acidophilus 500 MU Cap PO SCH (18:20)
[2017-12-14] MEDS: Bismuth Subsalicylate 262 mg/15 ml Sus (240 ml) PO PRN (21:33)
--- NOTE | 2017-12-14 21:46 | PN ---
DATE: 12/14/2017 SUBJECTIVE: The patient was having diarrhea. She states that she has been on antibiotics before, so I would cover her for C. diff and send a culture for that. She, otherwise, was feeling better but her sugars are still high. PHYSICAL EXAMINATION: VITAL SIGNS: She is afebrile. T-max is 96. She is in ICU. Blood pressure is 147/91, respirations are 21. HEENT: Head is atraumatic. NECK: Supple. LUNGS: Clear. HEART: S1, S2 and tachycardic. ABDOMEN: Soft. Nontender. Left CVA tenderness present. EXTREMITIES: Have no edema. LABORATORY DATA: White count is 7.3, hemoglobin 9.6, hematocrit 28.1, platelet count is 171. Her chemistry showed BUN is 15, creatinine is 1.2. She was having diarrhea. Serology, C. diff antigen was done today which was negative. Drug screen is negative. Beta hydroxybutyrate was positive, so she is in DKA; but her pH is 7.41, so she has been covered for her glucose. Lactate level was 1 yesterday. Now micro ayers, her cultures, urine grew E. coli and E. coli is ESBL negative and sensitive to meropenem as well as Cipro, ertapenem, and cefepime. So, at this time we will add lactobacillus and give her Kaopectate for diarrhea. C. diff is negative. If she continues to have we would repeat blood cultures tomorrow and if it is negative, we will discontinue since it is sensitive to Merrem, we will continue that for now and give her some Kaopectate for diarrhea. The patient came in with gram negative septicemia with UTI and with pyelonephritis and is diabetic with hyperglycemia and with lactic acidosis. Denver Gant MD
[2017-12-15] MEDS: Sodium Chloride 0.9% 1,000 ML IV SCH ×3 (00:02→16:57)
[2017-12-15] MEDS: Aztreonam 1 GM in Sodium Chloride 0.9% 100 ML IVPB SCH ×2 (00:02→08:32)
[2017-12-15] MEDS: Meropenem 1 GM in Sodium Chloride 0.9% 100 ML IVPB SCH ×3 (02:39→17:45)
[2017-12-15 06:22] LABS: BASO % 0.3 % (0.0-2.0); EOS % 0.8 % (0.0-4.0); HEMOGLOBIN 8.8 g/dL (11.0-16.0); LYMPH # 0.5 K/uL (1.0-4.3); LYMPH % 10.8 % (20.0-40.0); MEAN CELL VOLUME 83.9 fL (81.0-99.0); MEAN CORPUSCULAR HEMOGLOBIN 28.2 pg (27.0-31.0); MEAN CORPUSCULAR HGB CONC 33.7 g/dL (33.0-37.0); MEAN PLATELET VOLUME 8.5 fL (7.2-11.7); MONO # 0.6 K/uL (0.0-0.8); MONO % 12.3 % (0.0-10.0); NEUT # 3.7 K/uL (1.8-7.0); NEUT % 75.8 % (50.0-75.0); NRBC % 0.1 % (0.0-2.0); RBC 3.11 Mil/uL (3.80-5.20); RED CELL DISTRIBUTION WIDTH 13.6 % (11.5-14.5); WHITE BLOOD COUNT 4.9 K/uL (4.8-10.8)
[2017-12-15 06:32] LABS: ALB/GLOB RATIO 0.8 (1.0-2.1); ALBUMIN 2.9 g/dL (3.5-5.0); ALT/SGPT 26 U/L (9-52); AST/SGOT 20 U/L (14-36); BLOOD UREA NITROGEN 16 mg/dL (7-17); CALCIUM 7.5 mg/dl (8.6-10.4); GFR AFRICAN-AMERICAN > 60; GFR NON-AFRICAN AMERICAN 53
[2017-12-15] MEDS: (Novolog) Insulin Aspart, Recombinant 100 u/ml 10 ml vial SC SCH ×4 (08:33→21:46)
[2017-12-15] MEDS: Lactobacillus Acidophilus 500 MU Cap PO SCH ×2 (09:46→17:44)
[2017-12-15] MEDS ORDERED: Potassium & Sodium Phosphate PO ONE (10:45)
--- NOTE | 2017-12-15 17:41 | CP.PCM.PN ---
Subjective - Date & Time of Evaluation Date of Evaluation: 12/15/17 Time of Evaluation: 10:30 - Subjective Subjective: clinically same Objective - Vital Signs/Intake and Output Vital Signs (last 24 hours): Temp Pulse Resp BP Pulse Ox 98.2 F 86 20 144/88 91 L 12/15/17 16:00 12/15/17 16:27 12/15/17 16:00 12/15/17 12:38 12/15/17 16:00 Intake and Output: 12/15/17 12/15/17 06:59 18:59 Intake Total 1215 3020 Output Total 300 902 Balance 915 2118 - Medications Medications: Current Medications Acetaminophen (Tylenol 325mg Tab) 650 mg PO Q6 PRN PRN Reason: Fever >100.4 F Last Admin: 12/14/17 00:35 Dose: 650 mg Bismuth Subsalicylate (Pepto-Bismol) 262 mg PO Q8H PRN PRN Reason: Diarrhea Last Admin: 12/14/17 21:33 Dose: 262 mg Heparin Sodium (Porcine) (Heparin) 5,000 units SC Q12 [facility] Last Admin: 12/15/17 09:47 Dose: 5,000 units Meropenem 1 gm/ Sodium (Chloride) 100 mls @ 100 mls/hr IVPB Q8H [facility] PRN Reason: Protocol Last Admin: 12/15/17 09:38 Dose: 100 mls/hr Sodium Chloride (Sodium Chloride 0.9%) 1,000 mls @ 75 mls/hr IV .[id number] [facility] Last Admin: 12/15/17 16:57 Dose: 75 mls/hr Potassium Chloride (Potassium Chloride 20 Meq/100 Ml) 20 meq in 100 mls @ 50 mls/hr IVPB Q2 [facility] Stop: 12/15/17 19:59 Last Admin: 12/15/17 16:56 Dose: 50 mls/hr Ibuprofen (Motrin Tab) 400 mg PO Q6H PRN PRN Reason: Headache Last Admin: 12/15/17 09:46 Dose: 400 mg Insulin Aspart (Novolog) 0 unit SC ACHS [facility] PRN Reason: Protocol Last Admin: 12/15/17 12:31 Dose: 8 units Lactobacillus Acidophilus (Bacid Acidophilus) 1 cap PO BID [facility] Last Admin: 12/15/17 09:46 Dose: 1 cap Ondansetron HCl (Zofran Inj) 4 mg IVP Q6 PRN PRN Reason: Nausea/Vomiting Last Admin: 12/14/17 08:46 Dose: 4 mg Tamsulosin HCl (Flomax) 0.4 mg PO DAILY [facility] Last Admin: 12/15/17 09:46 Dose: 0.4 mg - Labs Labs: 12/15/17 06:07 12/15/17 06:07 PT 16.0 SECONDS (9.7-12.2) H 12/12/17 12:12 INR 1.5 12/12/17 12:12 APTT 32 SECONDS (21-34) 12/13/17 05:35 - Constitutional Appears: Well - Head Exam Head Exam: ATRAUMATIC, NORMAL INSPECTION, NORMOCEPHALIC - Eye Exam Eye Exam: EOMI, Normal appearance, PERRL Pupil Exam: NORMAL ACCOMODATION, PERRL - ENT Exam ENT Exam: Mucous Membranes Moist, Normal Exam - Neck Exam Neck Exam: Full ROM, Normal Inspection. absent: Lymphadenopathy - Respiratory Exam Respiratory Exam: Decreased Breath Sounds - Cardiovascular Exam Cardiovascular Exam: REGULAR RHYTHM, +S1, +S2 - GI/Abdominal Exam GI & Abdominal Exam: Soft, Diminished Bowel Sounds - Rectal Exam Rectal Exam: Deferred
[2017-12-15] MEDS: Bismuth Subsalicylate 262 mg/15 ml Sus (240 ml) PO PRN (20:36)
[2017-12-16] MEDS: Meropenem 1 GM in Sodium Chloride 0.9% 100 ML IVPB SCH ×2 (02:09→09:36)
[2017-12-16] MEDS: Sodium Chloride 0.9% 1,000 ML IV SCH ×2 (02:11→14:00)
[2017-12-16 05:59] LABS: BASO % 0.3 % (0.0-2.0); EOS % 0.7 % (0.0-4.0); HEMOGLOBIN 9.6 g/dL (11.0-16.0); LYMPH # 0.6 K/uL (1.0-4.3); LYMPH % 10.9 % (20.0-40.0); MEAN CELL VOLUME 83.9 fL (81.0-99.0); MEAN CORPUSCULAR HEMOGLOBIN 28.8 pg (27.0-31.0); MEAN CORPUSCULAR HGB CONC 34.3 g/dL (33.0-37.0); MEAN PLATELET VOLUME 8.4 fL (7.2-11.7); MONO # 0.7 K/uL (0.0-0.8); MONO % 12.7 % (0.0-10.0); NEUT # 4.2 K/uL (1.8-7.0); NEUT % 75.4 % (50.0-75.0); RBC 3.32 Mil/uL (3.80-5.20); RED CELL DISTRIBUTION WIDTH 13.3 % (11.5-14.5); WHITE BLOOD COUNT 5.5 K/uL (4.8-10.8)
[2017-12-16 06:18] LABS: BLOOD UREA NITROGEN 14 mg/dL (7-17); CALCIUM 8.1 mg/dl (8.6-10.4); GFR AFRICAN-AMERICAN > 60; GFR NON-AFRICAN AMERICAN 53
[2017-12-16 08:08] VITALS: RESP 18
[2017-12-16] MEDS: (Novolog) Insulin Aspart, Recombinant 100 u/ml 10 ml vial SC SCH ×4 (08:25→22:03)
[2017-12-16] MEDS ORDERED: Sodium Phosphate 15 MMOLE in Sodium Chloride 0.9% 250 ML IVPB ONE (09:12)
[2017-12-16] MEDS: Lactobacillus Acidophilus 500 MU Cap PO SCH ×2 (09:36→17:31)
--- NOTE | 2017-12-16 13:04 | CP.PCM.PN ---
Subjective - Date & Time of Evaluation Date of Evaluation: 12/16/17 Time of Evaluation: 01:00 - Subjective Subjective: dictated Objective - Vital Signs/Intake and Output Vital Signs (last 24 hours): Temp Pulse Resp BP Pulse Ox 98.4 F 100 H 18 145/85 98 12/16/17 08:00 12/16/17 04:00 12/16/17 08:00 12/16/17 04:00 12/16/17 08:00 - Medications Medications: Current Medications Acetaminophen (Tylenol 325mg Tab) 650 mg PO Q6 PRN PRN Reason: Fever >100.4 F Last Admin: 12/14/17 00:35 Dose: 650 mg Bismuth Subsalicylate (Pepto-Bismol) 262 mg PO Q8H PRN PRN Reason: Diarrhea Last Admin: 12/15/17 20:36 Dose: 262 mg Heparin Sodium (Porcine) (Heparin) 5,000 units SC Q12 [facility] Last Admin: 12/16/17 09:36 Dose: 5,000 units Meropenem 1 gm/ Sodium (Chloride) 100 mls @ 100 mls/hr IVPB Q8H [facility] PRN Reason: Protocol Last Admin: 12/16/17 09:36 Dose: 100 mls/hr Sodium Chloride (Sodium Chloride 0.9%) 1,000 mls @ 75 mls/hr IV .[id number] [facility] Last Admin: 12/16/17 02:11 Dose: Not Given Sodium Phosphate 15 mmole/ (Sodium Chloride) 255 mls @ 50 mls/hr IVPB .Q5H6M ONE Stop: 12/16/17 14:17 Last Admin: 12/16/17 10:50 Dose: 50 mls/hr Ibuprofen (Motrin Tab) 400 mg PO Q6H PRN PRN Reason: Headache Last Admin: 12/16/17 03:44 Dose: 400 mg Insulin Aspart (Novolog) 0 unit SC ACHS [facility] PRN Reason: Protocol Last Admin: 12/16/17 08:25 Dose: 6 units Lactobacillus Acidophilus (Bacid Acidophilus) 1 cap PO BID [facility] Last Admin: 12/16/17 09:36 Dose: 1 cap Ondansetron HCl (Zofran Inj) 4 mg IVP Q6 PRN PRN Reason: Nausea/Vomiting Last Admin: 12/14/17 08:46 Dose: 4 mg Tamsulosin HCl (Flomax) 0.4 mg PO DAILY [facility] Last Admin: 12/16/17 09:36 Dose: 0.4 mg - Labs Labs: 12/16/17 05:50 12/16/17 05:50 PT 16.0 SECONDS (9.7-12.2) H 12/12/17 12:12 INR 1.5 12/12/17 12:12 APTT 32 SECONDS (21-34) 12/13/17 05:35
[2017-12-16] MEDS: Ciprofloxacin 400mg/200ml D5W 400 MG/200 ML BAG IVPB SCH (17:31)
--- NOTE | 2017-12-16 19:12 | CP.PCM.PN ---
Subjective - Date & Time of Evaluation Date of Evaluation: 12/16/17 Time of Evaluation: 12:15 - Subjective Subjective: clinically same Objective - Vital Signs/Intake and Output Vital Signs (last 24 hours): Temp Pulse Resp BP Pulse Ox 98.4 F 94 H 18 149/89 98 12/16/17 15:00 12/16/17 15:00 12/16/17 15:00 12/16/17 15:00 12/16/17 15:00 Intake and Output: 12/16/17 12/17/17 18:59 06:59 Intake Total 2350 Output Total 1500 Balance 850 - Medications Medications: Current Medications Acetaminophen (Tylenol 325mg Tab) 650 mg PO Q6 PRN PRN Reason: Fever >100.4 F Last Admin: 12/14/17 00:35 Dose: 650 mg Bismuth Subsalicylate (Pepto-Bismol) 262 mg PO Q8H PRN PRN Reason: Diarrhea Last Admin: 12/15/17 20:36 Dose: 262 mg Heparin Sodium (Porcine) (Heparin) 5,000 units SC Q12 [facility] Last Admin: 12/16/17 09:36 Dose: 5,000 units Sodium Chloride (Sodium Chloride 0.9%) 1,000 mls @ 75 mls/hr IV .[id number] [facility] Last Admin: 12/16/17 14:00 Dose: 75 mls/hr Ciprofloxacin (Cipro 400mg/200ml Dsw) 400 mg in 200 mls @ 133 mls/hr IVPB Q12H [facility] PRN Reason: Protocol Last Admin: 12/16/17 17:31 Dose: 133 mls/hr Ibuprofen (Motrin Tab) 400 mg PO Q6H PRN PRN Reason: Headache Last Admin: 12/16/17 03:44 Dose: 400 mg Insulin Aspart (Novolog) 0 unit SC ACHS [facility] PRN Reason: Protocol Last Admin: 12/16/17 16:31 Dose: 6 units Lactobacillus Acidophilus (Bacid Acidophilus) 1 cap PO BID [facility] Last Admin: 12/16/17 17:31 Dose: 1 cap Ondansetron HCl (Zofran Inj) 4 mg IVP Q6 PRN PRN Reason: Nausea/Vomiting Last Admin: 12/14/17 08:46 Dose: 4 mg Tamsulosin HCl (Flomax) 0.4 mg PO DAILY [facility] Last Admin: 12/16/17 09:36 Dose: 0.4 mg - Labs Labs: 12/16/17 05:50 12/16/17 05:50 PT 16.0 SECONDS (9.7-12.2) H 12/12/17 12:12 INR 1.5 12/12/17 12:12 APTT 32 SECONDS (21-34) 12/13/17 05:35 - Constitutional Appears: Well - Head Exam Head Exam: ATRAUMATIC, NORMAL INSPECTION, NORMOCEPHALIC - Eye Exam Eye Exam: EOMI, Normal appearance, PERRL Pupil Exam: NORMAL ACCOMODATION, PERRL - ENT Exam ENT Exam: Mucous Membranes Moist, Normal Exam - Neck Exam Neck Exam: Full ROM, Normal Inspection. absent: Lymphadenopathy - Respiratory Exam Respiratory Exam: Decreased Breath Sounds - Cardiovascular Exam Cardiovascular Exam: REGULAR RHYTHM, +S1, +S2 - GI/Abdominal Exam GI & Abdominal Exam: Soft, Diminished Bowel Sounds - Rectal Exam Rectal Exam: Deferred
[2017-12-16 21:58] VITALS: O2SAT 97
--- NOTE | 2017-12-16 22:15 | PN ---
DATE: 12/16/2017 SUBJECTIVE: The patient was still in ICU when I saw her, and she was complaining of some headache. Denied any abdominal pains. Says she has had nausea and vomiting, has stopped. Did not have any diarrhea. She does suffer from migraine . PHYSICAL EXAMINATION: VITAL SIGNS: T-max is 98.4, heart rate of 94, blood pressure 149/89, respirations are 18. HEENT: Head is atraumatic, normocephalic. NECK: Supple. LUNGS: Clear. HEART: S1, S2 are regular. ABDOMEN: Soft. Nontender. No CVA tenderness present. EXTREMITIES: Have no edema. LABORATORY DATA: Labs are noted. Labs show white count is 5.5, hemoglobin 9.6, hematocrit 27.9, platelet count of 200. BUN is 14, creatinine is 1.1. Phosphorus was low and is supplementing it. Micro ayers, cultures blood and urine, we repeated yesterday blood which was negative. Urine culture also needs to be repeated. ASSESSMENT AND PLAN: She has Escherichia coli, which is very sensitive to Cipro. So, we can probably switch her to Cipro IV. She did have bacteremia. Abdomen and pelvic CT was done, which showed left kidney system unclear, there was some air within the left renal collecting system, and some fatty nephric infiltration, so she has probably pyelonephritis of the left kidney with Escherichia coli, which is ESBL negative at this time, and she is also having a migraine headache at this time. She is diabetic. She came with hyperglycemia and acidosis. We took away the Azactam, left her on meropenem, but I do not think we need meropenem. I will cut down to Cipro IV. We started the antibiotics from 12/12/2017. She has received only four days of medications. She will need 10 more days and at this time, we are monitoring her. We will change to Cipro. We will follow. Denver Gant MD
[2017-12-17] MEDS: Ciprofloxacin 400mg/200ml D5W 400 MG/200 ML BAG IVPB SCH (05:05)
[2017-12-17] MEDS: Sodium Chloride 0.9% 1,000 ML IV SCH (06:59)
[2017-12-17] MEDS: (Novolog) Insulin Aspart, Recombinant 100 u/ml 10 ml vial SC SCH ×2 (08:45→12:22)
[2017-12-17] MEDS: Lactobacillus Acidophilus 500 MU Cap PO SCH (10:00)
[2017-12-17 13:28] VITALS: BP 131/80; PULSE 90; TEMP 98.7
--- NOTE | 2017-12-17 15:32 | CP.PCM.PN ---
Subjective - Date & Time of Evaluation Date of Evaluation: 12/17/17 Time of Evaluation: 15:30 - Subjective Subjective: PT SEEN AND EVAL'D BY DR. Martinez LE AND CLEARED FOR D/C HOME. RX CIPRO PO FOR 10 DAYS AND PROBIOTIC FOR 10 DAYS. PT TO F/U WITH PMD WITHIN 5-7 DAYS. CHUNG SHARMA TO COLLECT UA AND URINE CX PRIOR TO D/C ORDERED EARLIER BY DR. CHRISTIANSON. SEE BELOW FOR D/C INFORMATION. -PLEASE FOLLOW UP WITH DR. Martinez LE OR YOUR PRIMARY PROVIDER IN THE OFFICE WITHIN 5-7 DAYS---CALL THE OFFICE FOR AN APPT TIME. -YOU HAVE BEEN PRESCRIBED AN ANTIBIOTIC (CIPRO) AND PROBIOTIC (ACIDOPHILUS, THIS IS TO PROTECT YOUR STOMACH WHILE TAKING ANTIBIOTICS) FOR 10 DAYS---TAKE BOTH MEDICATIONS TWO TIMES A DAY UNTIL YOU FINISH THEM. -START BOTH NEWLY PRESCRIBED MEDICATIONS THIS EVENING WITH DINNER. -CONTINUE HOME MEDICATIONS USUAL. -DRINK PLENTY OF WATER AND STAY HYDRATED, THIS HELPS WITH THE URINARY INFECTION. -IF YOUR REPEAT URINE TESTS SHOW ABNORMAL FINDINGS, THE LABORATORY AT [facility] WILL NOTIFY YOU AND YOUR DOCTOR. IF YOU WOULD LIKE TO FOLLOW UP WITH THE REPEAT TESTS ON YOUR OWN, FEEL FREE TO CALL THE LAB AT [phone]. -FOR FURTHER QUESTIONS OR CONCERNS, CONTACT DR. Ilan LE'S OFFICE. Objective - Vital Signs/Intake and Output Vital Signs (last 24 hours): Temp Pulse Resp BP Pulse Ox 98.7 F 90 18 131/80 97 12/17/17 12:00 12/17/17 12:00 12/16/17 15:00 12/17/17 12:00 12/17/17 12:00 Intake and Output: 12/17/17 12/17/17 06:59 18:59 Intake Total 850 Output Total 700 Balance 150 - Medications Medications: Current Medications Acetaminophen (Tylenol 325mg Tab) 650 mg PO Q6 PRN PRN Reason: Fever >100.4 F Last Admin: 12/14/17 00:35 Dose: 650 mg Bismuth Subsalicylate (Pepto-Bismol) 262 mg PO Q8H PRN PRN Reason: Diarrhea Last Admin: 12/15/17 20:36 Dose: 262 mg Heparin Sodium (Porcine) (Heparin) 5,000 units SC Q12 [facility] Last Admin: 12/17/17 10:00 Dose: Not Given Ciprofloxacin (Cipro 400mg/200ml Dsw) 400 mg in 200 mls @ 133 mls/hr IVPB Q12H [facility] PRN Reason: Protocol Last Admin: 12/17/17 05:05 Dose: 133 mls/hr Ibuprofen (Motrin Tab) 400 mg PO Q6H PRN PRN Reason: Headache Last Admin: 12/17/17 12:19 Dose: 400 mg Insulin Aspart (Novolog) 0 unit SC ACHS [facility] PRN Reason: Protocol Last Admin: 12/17/17 12:22 Dose: 6 units Lactobacillus Acidophilus (Bacid Acidophilus) 1 cap PO BID [facility] Last Admin: 12/17/17 10:00 Dose: Not Given Ondansetron HCl (Zofran Inj) 4 mg IVP Q6 PRN PRN Reason: Nausea/Vomiting Last Admin: 12/14/17 08:46 Dose: 4 mg Tamsulosin HCl (Flomax) 0.4 mg PO DAILY [facility] Last Admin: 12/17/17 10:00 Dose: Not Given - Labs Labs: 12/16/17 05:50 12/16/17 05:50 PT 16.0 SECONDS (9.7-12.2) H 12/12/17 12:12 INR 1.5 12/12/17 12:12 APTT 32 SECONDS (21-34) 12/13/17 05:35
[2017-12-17 16:09] LABS: SQUAMOUS EPITHIAL < 1 /hpf (0-5); URINE BILIRUBIN NEGATIVE (NEGATIVE); URINE BLOOD 1+ (NEGATIVE); URINE CLARITY Clear (Clear); URINE COLOR Straw (YELLOW); URINE GLUCOSE (UA) 3+ mg/dL (Normal); URINE LEUKOCYTE ESTERASE NEG Leu/uL (Negative); URINE PROTEIN NEGATIVE (NEGATIVE); URINE UROBILINOGEN NORMAL mg/dL (0.2-1.0)
--- NOTE | 2017-12-17 23:38 | CP.PCM.PN ---
Subjective - Date & Time of Evaluation Date of Evaluation: 12/17/17 Objective - Vital Signs/Intake and Output Vital Signs (last 24 hours): Temp Pulse Resp BP Pulse Ox 98.7 F 90 18 131/80 97 12/17/17 12:00 12/17/17 12:00 12/16/17 15:00 12/17/17 12:00 12/17/17 12:00 - Labs Labs: 12/16/17 05:50 12/16/17 05:50 PT 16.0 SECONDS (9.7-12.2) H 12/12/17 12:12 INR 1.5 12/12/17 12:12 APTT 32 SECONDS (21-34) 12/13/17 05:35
== END 2017-12-17 16:00 | disposition home or self-care (01) | DRG 584 ==
LOC: C.ER 11:30 → C.9E 14:09 → C.9I 15:25
PROVIDERS: ADMIT Internal Medicine Nephrology; ATTEND Internal Medicine Nephrology
DX: A41.50 Gram-negative sepsis, unspecified (principal); N17.0 Acute kidney failure with tubular necrosis; N12 Tubulo-interstitial nephritis, not specified as acute or chronic; E11.10 Type 2 diabetes mellitus with ketoacidosis without coma; E03.9 Hypothyroidism, unspecified; E78.5 Hyperlipidemia, unspecified; I10 Essential (primary) hypertension; N20.2 Calculus of kidney with calculus of ureter; G43.909 Migraine, unspecified, not intractable, without status migrainosus; Z79.4 Long term (current) use of insulin

== ENCOUNTER 2017-12-21 11:55 | Emergency (ER) | payer OTHER ==
[2017-12-21 11:56] VITALS: BMI 23.3
[2017-12-21 12:03] VITALS: TEMP 98.1
[2017-12-21] MEDS ORDERED: Sodium Chloride 0.9% 1,000 ML IV ONE (12:31)
--- NOTE | 2017-12-21 12:50 | C.PDOC ---
History Of Present Illness 47 y/o female, with PMHx of substance abuse, anxiety (not taking her medication because it makes her sleepy), presents to ED c/o LLQ abdominal pain described as cramping. Pt was admitted from 12/12-12/17 for UTI treatment. Notes taking Narcotic pain medication with relief. Denies n/v/d, or fever. Time Seen by Provider: 12/21/17 12:26 Chief Complaint (Nursing): Abdominal Pain History Per: Patient History/Exam Limitations: no limitations Past Medical History Reviewed: Historical Data, Nursing Documentation, Vital Signs Vital Signs: Last Vital Signs Temp 98.1 F 12/21/17 12:00 Pulse 100 H 12/21/17 14:15 Resp 20 12/21/17 14:15 BP 120/78 12/21/17 14:15 Pulse Ox 98 12/21/17 14:52 - Medical History PMH: Anxiety, Gastritis, HTN, Hypercholesterolemia, Hypothyroidism - [facility] GROUP PSYCHOTHERAPY (05/26/15) MEDICATION MANAGEMENT (05/26/15) Family History: States: Unknown Family Hx - Social History Hx Alcohol Use: No Hx Substance Use: No - Immunization History Hx Tetanus Toxoid Vaccination: No Hx Influenza Vaccination: No Hx Pneumococcal Vaccination: No Review Of Systems Except As Marked, All Systems Reviewed And Found Negative. Constitutional: Negative for: Fever, Chills Gastrointestinal: Positive for: Abdominal Pain. Negative for: Nausea, Vomiting , Diarrhea, Constipation Genitourinary: Negative for: Dysuria, Frequency, Hematuria Musculoskeletal: Negative for: Back Pain Physical Exam - Physical Exam Appears: Non-toxic, No Acute Distress, Other (bizarre, anxious) Skin: Normal Color, Warm, Dry Head: Atraumatic, Normacephalic Eye(s): bilateral: Normal Inspection, Other (tearful) Oral Mucosa: Moist Neck: Supple Cardiovascular: Rhythm Regular Respiratory: Normal Breath Sounds, No Rales, No Rhonchi, No Wheezing Gastrointestinal/Abdominal: Soft, No Tenderness, No Guarding, No Rebound Back: No CVA Tenderness Extremity: Normal ROM, No Deformity Neurological/Psych: Oriented x3, Normal Speech ED Course And Treatment - Laboratory Results Result Diagrams: 12/21/17 12:50 12/21/17 12:50 Lab Interpretation: Abnormal (UA 40 WBC's) Urine POC: Negative O2 Sat by Pulse Oximetry: 98 - Radiology CXR: Interpreted by Me CXR Interpretation: Yes: No Acute Disease - Other Rad abd x 2 X-Ray: Interpreted by Me (+FOS) Progress Note: xanax 0.25 mg PO, cipro PO Reevaluation Time: 14:43 Reassessment Condition: Improved (calm, cooperative, relaxed) Medical Decision Making Medical Decision Making: Plan: Blood work Urinalysis Obstructive series Toradol, Xanax, IV fluids Reassess Anxiety/depression Extensive hx including inpatient lost to psych f/u MUCH improved with only Xanax 0.25 mg po encouraged outpatient minimal UTI (dirty catch with 40 WBC's) Recent UTI/Pyelo/DK Lekocytosis 11.5 w L-shift No Fevers nor flank pain nor n/v. recent UC E.coli sensitive to Cipro Start 10 days again PO regmien opt f/u. UC sent DM: Well controlled today was NOT restarted on PO meds and finger-sticks since last d/c. refilled all: NOW has all home equipment and meds needed. crampy LLQ discomfort abd x 2 views, +FOS laxative encouraged. Disposition Doctor Will See Patient In The: Office Counseled Patient/Family Regarding: Studies Performed - Disposition Referrals: Darlyn Jernigan MD [Staff Provider] - Disposition: HOME/ ROUTINE Disposition Time: 15:12 Condition: GOOD Additional Instructions: Mild UTI prior bacteria is sensitive to Cipro Cipro 500 mg twice a day for 10 days Drink penty of water Constipation: Drink a laxative now A bottle of Mag Citrate Re-evaluate your abdominal discomfort after using the bathroom 2-3 times Anxiety: Follow-up at the [facility] or [facility] Medications AND Counseling for anxiety and depression Call to make an appointment or present in person. Prescriptions: Ciprofloxacin [Cipro] 1 tab PO BID #19 tab Instructions: Generalized Anxiety Disorder, Constipation in Adults, Urinary Tract Infection, Adult (DC) Forms: [employer] (Romanian) - Clinical Impression Clinical Impression: Abdominal discomfort, Anxiety - Scribe Statement The provider has reviewed the documentation as recorded by the Scribe KP All medical record entries made by the Scribe were at my direction and personally dictated by me. I have reviewed the chart and agree that the record accurately reflects my personal performance of the history, physical exam, medical decision making, and the department course for this patient. I have also personally directed, reviewed, and agree with the discharge instructions and disposition.
[2017-12-21 13:02] LABS: BASO # 0.1 K/uL (0.0-0.2); BASO % 0.5 % (0.0-2.0); EOS # 0.1 K/uL (0.0-0.7); EOS % 0.5 % (0.0-4.0); HEMOGLOBIN 11.2 g/dL (11.0-16.0); LYMPH # 1.2 K/uL (1.0-4.3); LYMPH % 10.6 % (20.0-40.0); MEAN CELL VOLUME 83.6 fL (81.0-99.0); MEAN CORPUSCULAR HEMOGLOBIN 28.4 pg (27.0-31.0); MEAN PLATELET VOLUME 7.2 fL (7.2-11.7); MONO # 0.6 K/uL (0.0-0.8); NEUT # 9.6 K/uL (1.8-7.0); NEUT % 83.4 % (50.0-75.0); RBC 3.94 Mil/uL (3.80-5.20); RED CELL DISTRIBUTION WIDTH 13.1 % (11.5-14.5)
[2017-12-21 13:03] LABS: WHITE BLOOD COUNT 11.5 K/uL (4.8-10.8)
[2017-12-21 13:15] LABS: ALB/GLOB RATIO 0.8 (1.0-2.1); ALT/SGPT 33 U/L (9-52); AST/SGOT 28 U/L (14-36); BLOOD UREA NITROGEN 8 mg/dL (7-17); CALCIUM 9.4 mg/dl (8.6-10.4); GFR AFRICAN-AMERICAN > 60; GFR NON-AFRICAN AMERICAN 59; LIPASE 187 U/L (23-300)
[2017-12-21 13:19] LABS: HCG,QUALITATIVE URINE NEGATIVE (NEGATIVE)
[2017-12-21 13:28] LABS: SQUAMOUS EPITHIAL 6 /hpf (0-5); URINE BACTERIA RARE (<OCC); URINE BILIRUBIN NEGATIVE (NEGATIVE); URINE BLOOD NEGATIVE (NEGATIVE); URINE CLARITY Clear (Clear); URINE COLOR Straw (YELLOW); URINE GLUCOSE (UA) 3+ mg/dL (Normal); URINE LEUKOCYTE ESTERASE TRACE Leu/uL (Negative); URINE PROTEIN NEGATIVE (NEGATIVE); URINE UROBILINOGEN NORMAL mg/dL (0.2-1.0)
[2017-12-21 13:42] LABS: BARBITURATES, UR NEGATIVE (NEGATIVE); BENZODIAZEPINES, UR NEGATIVE (NEGATIVE); OPIATES, UR NEGATIVE (NEGATIVE); PHENCYCLIDINE, UR NEGATIVE (NEGATIVE)
[2017-12-21 14:43] VITALS: RESP 20
--- NOTE | 2017-12-21 15:37 | RAD ---
Date of service: 12/21/2017 PROCEDURE: Radiographs of the chest and abdomen (obstructive series) HISTORY: abd pain COMPARISON: Comparison is made to the previous study dated 11/09/2017 TECHNIQUE: AP radiograph of the chest, with upright and supine radiographs of the abdomen. FINDINGS: CHEST: Lungs: Linear opacities are seen at the left lower lung Cardiovascular: Normal size heart. No pulmonary vascular congestion. Pleura: No pleural fluid. No pneumothorax. Other findings: None. ABDOMEN AND PELVIS: Bowel: Mild constipation noted otherwise unremarkable bowel gas pattern. No evidence of mechanical obstruction. Free air: None. Bones: Unremarkable. Other findings: None. IMPRESSION: Mild constipation, otherwise unremarkable radiographs of chest and abdomen. No evidence of mechanical bowel obstruction.
[2017-12-21 15:38] VITALS: BP 126/82; PULSE 88; O2SAT 97
== END 2017-12-21 15:33 | disposition home or self-care (01) ==
LOC: C.ER 11:55
DX: R10.32 Left lower quadrant pain (principal); F41.9 Anxiety disorder, unspecified
CPT/HCPCS: 74022; 80053; 80320; 80324; 80345; 80346; 80349; 80353; 80358; 80361; 81001; 83690; 83992; 84703; 85025; 87086; 96374; 99285; J1885; J7030